=== PATIENT | male | born 1955 | race Caucasian/White ===

== ENCOUNTER 2023-06-26 14:08 | Outpatient (RCR) | payer OTHER, SELFPAY | END 2023-06-26 23:59 | disposition home or self-care (01) | LOC: RPT 14:08 | PROVIDERS: ATTENDING PHYSICIAN Physical Medicine & Rehabilitation; FAMILY PHYSICIAN Internal Medicine | DX: Z47.81 Encounter for orthopedic aftercare following surgical amputation (principal); Z89.511 Acquired absence of right leg below knee; R26.2 Difficulty in walking, not elsewhere classified; Z73.6 Limitation of activities due to disability | CPT/HCPCS: 97110; 97763 ==

== ENCOUNTER 2023-07-24 13:52 | Outpatient (RCR) | payer OTHER, SELFPAY | END 2023-07-24 23:59 | disposition home or self-care (01) | LOC: RPT 13:52 | PROVIDERS: ATTENDING PHYSICIAN Physical Medicine & Rehabilitation; FAMILY PHYSICIAN Internal Medicine | DX: Z47.81 Encounter for orthopedic aftercare following surgical amputation (principal); R26.2 Difficulty in walking, not elsewhere classified; Z74.09 Other reduced mobility; Z73.6 Limitation of activities due to disability; M62.81 Muscle weakness (generalized); Z89.512 Acquired absence of left leg below knee | CPT/HCPCS: 97110; 97763 ==

== ENCOUNTER → 2023-08-18 10:40 | Outpatient (REF) | payer OTHER, SELFPAY | LOC: RAD 10:40 | PROVIDERS: ATTENDING PHYSICIAN Surgery Vascular Surgery; FAMILY PHYSICIAN Internal Medicine | DX: I70.262 Atherosclerosis of native arteries of extremities with gangrene, left leg (principal) | CPT/HCPCS: 93922; 93925 ==

== ENCOUNTER 2023-08-25 13:43 | Outpatient (RCR) | payer OTHER, SELFPAY | END 2023-08-25 23:59 | disposition home or self-care (01) | LOC: RPT 13:43 | PROVIDERS: ATTENDING PHYSICIAN Physical Medicine & Rehabilitation; FAMILY PHYSICIAN Internal Medicine | DX: Z47.81 Encounter for orthopedic aftercare following surgical amputation (principal); R26.2 Difficulty in walking, not elsewhere classified; Z73.6 Limitation of activities due to disability; M62.81 Muscle weakness (generalized); Z89.512 Acquired absence of left leg below knee; Z89.431 Acquired absence of right foot | CPT/HCPCS: 97110; 97763 ==

== ENCOUNTER 2023-09-25 13:07 | Outpatient (RCR) | payer OTHER, SELFPAY | END 2023-09-25 23:59 | disposition home or self-care (01) | LOC: RPT 13:07 | PROVIDERS: ATTENDING PHYSICIAN Physical Medicine & Rehabilitation; FAMILY PHYSICIAN Internal Medicine | DX: Z47.81 Encounter for orthopedic aftercare following surgical amputation (principal); R26.2 Difficulty in walking, not elsewhere classified; Z73.6 Limitation of activities due to disability; Z74.09 Other reduced mobility; R26.89 Other abnormalities of gait and mobility; Z89.512 Acquired absence of left leg below knee; Z89.431 Acquired absence of right foot | CPT/HCPCS: 97110; 97763 ==

== ENCOUNTER → 2023-10-20 12:18 | Outpatient (REF) | payer OTHER, SELFPAY | LOC: RAD 12:18 | PROVIDERS: ATTENDING PHYSICIAN Internal Medicine | DX: R06.00 Dyspnea, unspecified (principal) | CPT/HCPCS: 71046 ==

== ENCOUNTER 2023-10-27 12:16 | Outpatient (RCR) | payer OTHER, SELFPAY | END 2023-10-27 23:59 | disposition home or self-care (01) | LOC: RPT 12:16 | PROVIDERS: ATTENDING PHYSICIAN Physical Medicine & Rehabilitation; FAMILY PHYSICIAN Internal Medicine | DX: Z47.81 Encounter for orthopedic aftercare following surgical amputation (principal); Z89.519 Acquired absence of unspecified leg below knee; R26.2 Difficulty in walking, not elsewhere classified; Z73.6 Limitation of activities due to disability | CPT/HCPCS: 97110; 97763 ==

== ENCOUNTER 2023-11-24 13:07 | Outpatient (RCR) | payer OTHER, SELFPAY | END 2023-11-24 23:59 | disposition home or self-care (01) | LOC: RPT 13:07 | PROVIDERS: ATTENDING PHYSICIAN Physical Medicine & Rehabilitation; FAMILY PHYSICIAN Internal Medicine | DX: R26.2 Difficulty in walking, not elsewhere classified (principal); Z89.519 Acquired absence of unspecified leg below knee; Z73.6 Limitation of activities due to disability | CPT/HCPCS: 97110; 97763 ==

== ENCOUNTER 2023-12-25 14:15 | Outpatient (RCR) | payer OTHER, SELFPAY | END 2023-12-25 23:59 | disposition home or self-care (01) | LOC: RPT 14:15 | PROVIDERS: ATTENDING PHYSICIAN Physical Medicine & Rehabilitation; FAMILY PHYSICIAN Internal Medicine | DX: R26.2 Difficulty in walking, not elsewhere classified (principal); Z89.519 Acquired absence of unspecified leg below knee; Z74.09 Other reduced mobility | CPT/HCPCS: 97763 ==

== ENCOUNTER 2024-01-19 13:18 | Outpatient (RCR) | payer OTHER, SELFPAY | END 2024-01-19 23:59 | disposition home or self-care (01) | LOC: RPT 13:18 | PROVIDERS: ATTENDING PHYSICIAN Physical Medicine & Rehabilitation; FAMILY PHYSICIAN Internal Medicine | DX: R26.2 Difficulty in walking, not elsewhere classified (principal); Z89.519 Acquired absence of unspecified leg below knee; Z74.09 Other reduced mobility | CPT/HCPCS: 97110; 97763 ==

== ENCOUNTER 2024-02-05 13:02 | Outpatient (RCR) | payer OTHER, SELFPAY | END 2024-02-05 23:59 | disposition home or self-care (01) | LOC: RPT 13:02 | PROVIDERS: ATTENDING PHYSICIAN Physical Medicine & Rehabilitation; FAMILY PHYSICIAN Internal Medicine | DX: Z47.81 Encounter for orthopedic aftercare following surgical amputation (principal); Z89.512 Acquired absence of left leg below knee; R26.2 Difficulty in walking, not elsewhere classified | CPT/HCPCS: 97763 ==

== ENCOUNTER 2024-03-11 13:44 | Outpatient (RCR) | payer OTHER, SELFPAY | END 2024-03-11 23:59 | disposition home or self-care (01) | LOC: RPT 13:44 | PROVIDERS: ATTENDING PHYSICIAN Physical Medicine & Rehabilitation; FAMILY PHYSICIAN Internal Medicine | DX: R26.2 Difficulty in walking, not elsewhere classified (principal); Z89.519 Acquired absence of unspecified leg below knee; Z74.09 Other reduced mobility | CPT/HCPCS: 97763 ==

== ENCOUNTER 2024-04-26 12:49 | Outpatient (RCR) | payer OTHER, SELFPAY | END 2024-04-26 23:59 | disposition home or self-care (01) | LOC: RPT 12:49 | PROVIDERS: ATTENDING PHYSICIAN Physical Medicine & Rehabilitation; FAMILY PHYSICIAN Internal Medicine | DX: Z47.81 Encounter for orthopedic aftercare following surgical amputation (principal); R26.2 Difficulty in walking, not elsewhere classified; Z73.6 Limitation of activities due to disability; M62.81 Muscle weakness (generalized); Z89.512 Acquired absence of left leg below knee; Z89.431 Acquired absence of right foot | CPT/HCPCS: 97763 ==

== ENCOUNTER 2024-05-10 09:59 | Outpatient (RCR) | payer OTHER, SELFPAY | END 2024-05-10 23:59 | disposition home or self-care (01) | LOC: RPT 09:59 | PROVIDERS: ATTENDING PHYSICIAN Physical Medicine & Rehabilitation; FAMILY PHYSICIAN Internal Medicine | DX: Z47.81 Encounter for orthopedic aftercare following surgical amputation (principal); R26.2 Difficulty in walking, not elsewhere classified; Z73.6 Limitation of activities due to disability; M62.81 Muscle weakness (generalized); Z89.512 Acquired absence of left leg below knee; Z89.431 Acquired absence of right foot | CPT/HCPCS: 97763 ==

== ENCOUNTER 2024-11-07 21:20 | Inpatient (IN) | payer OTHER, SELFPAY ==
[2024-11-07] VITALS (9 sets, daily range): BP systolic 141–192; BP diastolic 87–127; BMI 39.9
--- NOTE | 2024-11-07 18:41 | ED.GENMED ---
History of Present Illness
General
Chief Complaint: Breathing Problem
Source: patient
Exam Limitations: none
Time Seen by Provider: 11/07/24 18:24
Nursing documentation reviewed up to this point in time: agreed with
History of Present Illness
History of Present Illness:
68-year-old male presents with shortness of breath onset a year ago worsening recently after he fell and injured his lower extremities he has a known PE tells me his last INR was 6, no history of heart failure does state that his extremities have
been swollen and has bilateral amputations he is diabetic he states he maybe had a fever but he is uncertain his stumps feel swollen EMS his oxygen saturation was around 90 nursing here states room air he was 82% placed on 6 L does not use home
oxygen
Past History
Past History
ED Past Medical History: CAD, Hypercholesterolemia, IDDM, Other (Proteins C or S deficiency, DVT, PE) and Other (legally blind)
ED Past Surgical History: Other (bilateral amputations of feet)
Patient has exhibited threatening behavior?: No
Social History
Tobacco: Non-smoker
Review of Systems
Review of Systems
All Other Systems: Not applicable
Constitutional: Reports fatigue and chills
Respiratory: Reports trouble breathing
Cardiac: Denies chest pain
ABD/GI: Denies abdominal pain
Musculoskeletal: Reports no symptoms
Neurological: Reports weakness
Phy Exam
Physical Exam
Physical Exam:
Physical Exam
General: Ill-appearing male
Neck: JVD
Heart: Regular
Lungs: Crackles bilateral
Abdomen: Obese not tender
Neuro: alert and oriented. no focal neurological deficits
Skin: no rash
Psychiatric: well kept. interactive and cooperative
Extremities: Bilateral amputations edema is present at stump
Scores
Heart Failure Risk
Heart Failure Risk Score: Yes
History of Stroke or TIA: No
History of intubation for respiratory distress: No
Heart rate on ED arrival >/= 110: Yes
SaO2 <90% on arrival on room air: Yes
HR >/=110 during 3min walk test (or too ill to perform test): Yes
ECG has acute ischemic changes: No
Urea >/=12mmol/L (BUN 33.6mg/dL): No
Serum CO2>/=35mmol/L: No
Troponin I or T elevated to NV Level (0.4mg/dL): No
NT-proBNP >/=5,000ng/L (5,000pg/ml): Yes
HF Risk Score: 4
Admission Status: HIGH RISK 26.1% Consider SNF treatment or admission to hospital
Course
Orders/Labs/Results
Orders:
Orders
11/07/24 18:23
EKG [Electrocardiogram (*1)] Urgent
Reason for Study: Shortness of Breath
EKG- Treatment ONCE
11/07/24 18:28
Electrocardiogram (*1) Stat
Reason for Study: Other
Other Reason for Exam: pneumonia
Cardiac Monitoring- Treatment ONCE
EKG- Treatment ONCE
IV Insert/Care/Rem.- Treatment PRN
Arterial Blood Gas Urgent
%Oxygen/Room Air: 6
CR Chest Portable - 1 View Urgent
Comment:
Reason For Exam: sob
Reason Study Needs to be Portable: Unable to Transport
11/07/24 19:19
Complete Blood Count/With Diff Urgent
Comprehensive Metabolic Panel Urgent
NT-proBNP Urgent
Prothrombin Time Urgent
Troponin I Urgent
11/07/24 19:22
Furosemide [Lasix] 60 mg IV NOW STA
Abnormal Lab Results
11/07/24
19:19
MCHC 32.4 L g/dL
(33.0-37.0)
RDW 15.3 H %
(11.5-14.5)
MPV 11.7 H fL
(7.4-10.4)
Absolute Neuts (auto) 8.8 H 10^3/uL
(1.4-6.5)
Absolute Lymphs (auto) 1.1 L 10^3/uL
(1.2-3.4)
Absolute Monos (auto) 0.7 H 10^3/uL
(0.1-0.6)
Neutrophils % 82.1 H %
(42.2-75.2)
Lymphocytes % 10.2 L %
(20.5-51.1)
PT 67.9 H Sec
(11.4-14.6)
INR > 8.0 H*
Carbon Dioxide 32 H mmol/L
(22-30)
BUN 25 H mg/dl
(9-20)
Glucose 173 H mg/dl
(70-99)
Troponin I 0.073 H* ng/ml
11/07/24 19:19
11/07/24 19:19
Vital Signs
Initial and Last Documented VS:
Initial Vital Signs
BP
165/113
11/07/24 18:23
Last Documented Vital Signs
Temp Pulse Resp BP Pulse Ox
98.5 F 94 23 168/94 100
11/07/24 18:27 11/07/24 19:30 11/07/24 19:30 11/07/24 18:30 11/07/24 19:30
*Radiology
Radiology exam reviewed: preliminary read by ED provider
*Pulse Oximetry
Patient hypoxic: yes
Comment: 82
*Fire Observer Interpretation
Rate: normal
Interpretation: normal
Heart Rate: 78
Rhythm: sinus
*Critical Care Note
Total Time (30-74mins, 75-104mins- exclusive of procedures): 32
Update Note
Update Note:
8 PM chest x-ray noted looks like heart failure fits clinically, proBNP troponin noted, INR is elevated we will obviously hold his Coumadin I do not see an indication for urgent reversal at this time
Will require admission treated with supplemental oxygen and IV diuretic
ED Attending Note
-
Portions of this chart may have been created with voice recognition software.� Occasional wrong word or��sound alike� substitutions may have occurred due to the inherent limitations of voice recognition software.
Discharge Plan
Departure
Patient Disposition: Admit
Date of Disposition: 11/07/24
Time of Disposition: 20:13
Admit to: Telemetry
Presentation/result/management discussed w/ accepting MD/DO: Hospitalist
Patient with high blood pressure during this ER visit?: Yes
Condition: Fair
Discharge Problem:
Congestive heart failure (CHF)
Prescriptions:
No Action
atorvastatin 10 MG tablet
10 mg PO DAILY
aspirin 81 mg Tablet,Chewable
81 mg PO DAILY Qty: 0 0RF
warfarin 2 mg Tablet
2 mg PO MUST ENTER TIMES
Rx Instructions:
M/W/F/Sat/Sun
warfarin 3 mg Tablet
3 mg PO MUST ENTER TIMES
Rx Instructions:
Monday/
Triamcinolone Acetonide Cream 0.1%
1 applic topical QIDPRN PRN (Reason: psoriasis) Qty: 1 0RF
insulin aspart U-100 [Novolog FlexPen U-100 Insulin] 100 unit/mL (3 mL) Insulin Pen
26 unit SC AC
Rx Instructions:
with breakfast
insulin aspart U-100 [Novolog FlexPen U-100 Insulin] 100 unit/mL (3 mL) Insulin Pen
10 unit SC NOON
Rx Instructions:
with lunch
insulin aspart U-100 [Novolog FlexPen U-100 Insulin] 100 unit/mL (3 mL) Insulin Pen
26 unit SC AC
Rx Instructions:
with dinner
oxycodone 20 mg Tablet
20 mg PO Q6H PRN (Reason: moderate pain)
insulin glargine U-300 conc [Toujeo Max U-300 SoloStar] 300 unit/mL (3 mL) Insulin Pen
40 unit SC HS
warfarin [Jantoven] 3 mg Tablet
3 mg PO MoWeFr@1800 Qty: 60 0RF
warfarin [Jantoven] 2 mg Tablet
2 mg PO SuTuThSa@1800 Qty: 90 0RF
Referrals:
UNKNOWN - PT DOES,NOT KNOW [Family Provider]
Interventions
Interventions:
*Risk Screen - Suicide Last Done: 11/07/24 18:27
*Neglect/Abuse Screening Last Done: 11/07/24 18:27
*ED- Fall Risk Assessment Last Done: 11/07/24 18:27
ED- Cardiac Assessment Last Done: 11/07/24 18:27
ED- Pulmonary Assessment Last Done: 11/07/24 18:28
Discharge Date and Time
Print Language: PERUVIAN
[2024-11-07 19:32] LABS: % Basophils 0.3 % (0-2); % Eosinophils 0.7 % (0-6); % Immature Granulocytes 0.3 % (0-0.5); % Lymphocytes 10.2 % (20.5-51.1); % Monocytes 6.4 % (1.7-9.3); % Neutrophils 82.1 % (42.2-75.2); Absolute Eosinophils 0.1 10^3/uL (0-0.7); Absolute Lymphocytes 1.1 10^3/uL (1.2-3.4); Absolute Monocytes 0.7 10^3/uL (0.1-0.6); Absolute Neutrophils 8.8 10^3/uL (1.4-6.5); Hematocrit 42.3 % (39.0-52.0); Hemoglobin 13.7 g/dL (13.0-18.0); Mean Corp Hgb Conc. 32.4 g/dL (33.0-37.0); Mean Corpuscular Hgb 27.4 pg (27.0-31.0); Mean Corpuscular Volume 84.6 fL (80.0-94.0); Mean Platelet Volume 11.7 fL (7.4-10.4); Nucleated Red Blood Cells % 0 % (-); Platelet Count 133 10^3/uL (130-400); Red Cell Dist. Width 15.3 % (11.5-14.5); White Blood Cell Count 10.7 10^3/uL (4.8-10.8)
[2024-11-07] MEDS: LASIX 60 MG IV (19:32)
[2024-11-07 20:02] LABS: PT 67.9 Sec (11.4-14.6)
[2024-11-07 20:06] LABS: ALT (SGPT) 23 U/L (0-50); AST (SGOT) 23 U/L (17-59); Albumin 3.7 g/dl (3.5-5.0); Alkaline Phosphatase 78 U/L (38-126); Blood Urea Nitrogen 25 mg/dl (9-20); Calcium 9.2 mg/dl (8.4-10.2); Carbon Dioxide 32 mmol/L (22-30); Chloride 102 mmol/L (98-107); Estimated Creatinine Clearance 91 ml/min; Glucose 173 mg/dl (70-99); Potassium 4.5 mmol/L (3.5-5.1); Sodium 138 mmol/L (135-145); Total Bilirubin 1.2 mg/dl (0.2-1.3); Total Protein 6.6 g/dl (6.3-8.2); eGFR > 60.00
[2024-11-07 20:08] LABS: INR > 8.0; NT-proBNP 9260 pg/ml; Troponin I 0.073 ng/ml
--- NOTE | 2024-11-07 20:14 | HPS.HSE ---
Family Physician
-
Family Physician: NOT KNOW UNKNOWN - PT DOES
Chief Complaint
-
sob
b/l LE edema
History of Present Illness
68-year-old male with past medical history for coronary artery disease, hyperlipidemia, diabetes, protein C deficiency, DVT, PE presents with worsening shortness of breath for past two weeks. he was also noted to have b/l LE edema. he is also
complaining right sided abdominal pain for past two week. very poor appetite due to the abdominal pain. denied n,vomiting and diarrhea. Patient denied any headache, dizzy or syncope. Patient denied any fever, chills, cough, congestion. Patient
is complaining of chest discomfort and heaviness. Patient denied dysuria hematuria.
Upon arrival he was noted to hypoxic requiring 4 L of oxygen. Patient received a dose of Lasix in the ER. Admitted for further management
Patient not seeing cardiology as outpatient.
Medical History
Past Medical History
Past Medical History: Reports Other
Additional Past Medical History:
Type 2 diabetes
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
Neuropathy
Psoriasis
DVT PE
Right lower extremities gangrenous
Past Surgical History: Reports Other
Additional Past Surgical History:
Left hip replacement
right eye removal
cardiac stent
right lower extremities angiogram with stent of right SFA and popliteal and peroneal artery
Toe amputation
Left BKA
Social History
Tobacco: Non-smoker
Alcohol: None
Drug: None
Personal:
Living: With Family
Family History
Family History: Not pertinent
Allergies / Home Medications
Allergies reflects when Allergies were last updated in [email or web address].
Home Medications with original date entered in [email or web address]
Allergy/Medication List:
Allergies
Allergy/AdvReac Type Severity Reaction Status Date / Time
pregabalin (From Lyrica) Allergy Unknown Verified 11/07/24 18:25
Home Medications
atorvastatin 10 mg tablet 10 mg PO DAILY High cholesterol 05/23/19
aspirin 81 mg chewable tablet 81 mg PO DAILY #0 tabs 07/14/22
Triamcinolone Acetonide Cream 0.1% 1 applic topical QIDPRN PRN psoriasis #1 container 12/07/22
insulin aspart U-100 100 unit/mL (3 mL) subcutaneous pen (Novolog FlexPen U-100 Insulin aspart) 10 unit SC NOON 03/01/23
insulin aspart U-100 100 unit/mL (3 mL) subcutaneous pen (Novolog FlexPen U-100 Insulin aspart) 26 unit SC AC 03/01/23
insulin aspart U-100 100 unit/mL (3 mL) subcutaneous pen (Novolog FlexPen U-100 Insulin aspart) 26 unit SC AC 03/01/23
insulin glargine U-300 conc 300 unit/mL (3 mL) subcutaneous pen (Toujeo Max U-300 SoloStar) 40 unit SC HS 03/01/23
oxycodone 20 mg tablet 20 mg PO Q6H PRN moderate pain 03/01/23
warfarin 2 mg tablet (Jantoven) 2 mg PO SuTuThSa@1800 #90 tabs 03/13/23
warfarin 3 mg tablet (Jantoven) 3 mg PO MoWeFr@1800 #60 tabs 03/13/23
warfarin 2 mg tablet 2 mg PO MUST ENTER TIMES 11/07/24
warfarin 3 mg tablet 3 mg PO MUST ENTER TIMES 11/07/24
Review of Systems
-
Constitutional: Reports No Symptoms
EENT: Reports No Symptoms
Respiratory: Reports Trouble Breathing
Cardiac: Reports Chest Pain
Abdomen/GI: Reports Abdominal Pain
: Reports No Symptoms
Musculoskeletal: Reports Edema (Bilateral lower extremity)
Skin: Reports No Symptoms
Neurological: Reports No Symptoms
Endocrine: Reports No Symptoms
Hematologic/Lymphatic: Reports No Symptoms
Psych: Reports No Symptoms
Physical Exam
Vital Signs
Vital Signs
Temp Pulse Resp BP Pulse Ox
98.5 F 94 23 168/94 100
11/07/24 18:27 11/07/24 19:30 11/07/24 19:30 11/07/24 18:30 11/07/24 19:30
Physical Exam
General: Well Developed, Well Nourished and No Apparent Distress
HEENT: NormoCephalic, Moist mucous membranes and Atraumatic
Respiratory: Decreased Breath Sounds
Cardiac: S1/S2 and Regular Rhythm; No Murmur or Rub
GI: Soft, Non Tender, Non Distended and Normal Bowel Sounds; No Organomegaly
Rectal: Deferred by Provider
Musculoskeletal: No Clubbing, No Cyanosis and Other (Bilateral lower extremity)
Skin: No Rash
Neuro: Nonfocal/grossly intact
Laboratory Results
-
11/07/24 19:19
11/07/24 19:19
Laboratory Results
PT 67.9 Sec (11.4-14.6) H 11/07/24 19:19
INR > 8.0 H* 11/07/24 19:19
Total Bilirubin 1.2 mg/dl (0.2-1.3) 11/07/24 19:19
AST 23 U/L (17-59) 11/07/24 19:19
ALT 23 U/L (0-50) 11/07/24 19:19
Alkaline Phosphatase 78 U/L (38-126) 11/07/24 19:19
Troponin I 0.073 ng/ml H* 11/07/24 19:19
Data Reviewed
-
Lab Data: Labs Reviewed by me
Impression/Plan
-
# Acute hypoxic respiratory failure secondary to new onset CHF
- Diuretics continued
- Strict HUNG, daily weight, fluid restriction
- Cardiology consult
- BNP 9260
- Chest x-ray pending
- Echo 12/28/2022 with a EF of 61%
- Obtain echocardiogram
-Continue supplemental oxygen to keep sat greater than 95
-Wean as tolerated-
- Cardiology consulted
#right sided abdominal pain unclear cause
-will obtain Ct abdomen pelvis
-ctm
# Supratherapeutic INR on Coumadin
# History of DVT/PE
- INR greater than 8.0
- Hold Coumadin
#chest pain/ Elevated Trope rule out NSTEMI
- Trope 0.073
- EKG was sinus rhythm with PACs
- Trend Trope
# History of�gangrene left foot s/p Left below the knee amputation
# osteomyelitis of digits 4 and 5 and calcaneus of the left foot
#History left TMA 06/2022,�
# Hx Right partial foot amputation/MRSA foot/dry gangrene at the medial aspect of the TMA�
# PVD/ Left distal SFA, mid SFA, proximal SFA stents x3, left peroneal artery/TP trunk angioplasty July 04, 2022
#DM 2
- Sliding scale
- CHO diet
- Obtain A1c
-trojeo 25units continued
#HX DVT/PE, protein C/S deficiency
#Hx clots to bilat eyes/ blindness
#CAD/cardiac stents 2014
# Accelerated essential hypertension
- Blood pressure elevated in ER
- Lasix continued
-hydralazine added
#Blind right eye/left
#Psoriasis
#Obesity
#Dvt Prophylaxis-contraindicated
# CODE STATUS full code-
[2024-11-07] MEDS: NITROSTAT (SUBLINGUAL) 0.4 MG SL (21:07)
--- NOTE | 2024-11-07 21:17 | W.PN.UPDATE ---
Update Note
Progress Note Update
This is an addendum to H&P written by Annalisa Dougherty on 11/07/2024. �Patient seen and examined independently with PATIENT FLOW COORDINATOR.
68-year-old male with past medical history of protein C&S deficiency, DVT/PE, blindness, CAD status post stents, hypertension, hyperlipidemia, peripheral arterial disease, osteomyelitis status post left TMA, gangrene of the foot status post
below-knee amputation, type 2 diabetes, diabetic neuropathy, chronic anemia, obesity, constipation, anxiety, insomnia, blindness of right eye, psoriasis, presenting with increased lower extremity edema of stump, hypoxemia to 82% requiring 6 L per
EMS.
INR of 6 today.
Complaining of lower abdominal pain worse in the right lower quadrant over the past week worse with eating.
Blood pressure 190s. �Currently on 4 L oxygen.
Cardiac BNP of 9200. �0.073. �EKG shows sinus rhythm with PACs. �INR greater than 8.
Chest x-ray shows pulmonary edema. �Report pending.
Patient with acute CHF exacerbation with hypertensive emergency. �Lasix. �Echocardiogram. �Trend troponins. �As needed hydralazine. �Cardiology.
Patient with supratherapeutic INR greater than 8. �Will give 1 mg vitamin K. �Recheck INR in the a.m.
Unclear etiology of abdominal pain. �Does not seem to be acute abdomen. �Check CT abdomen pelvis to evaluate abdominal pain. �Could be related to gastritis.
[2024-11-07 21:19] LABS: Urine Albumin 4+ (Neg - Trace); Urine Bilirubin Negative (Negative); Urine Character Clear (Clear); Urine Color Yellow; Urine Glucose Negative (Negative); Urine Ketone Negative (Negative); Urine Leukocyte Negative (Negative); Urine Nitrite Negative (Negative); Urine Occult Blood 1+ (Negative); Urine Specific Gravity 1.025 (<1.030); Urine Urobilinogen 1+ (Neg - 1+)
[2024-11-07 21:26] LABS: Urine Mucus Few
[2024-11-07 21:28] LABS: Urine Bacteria Many (Negative)
[2024-11-07] MEDS: AQUAMEPHYTON 50.5 MG IV (21:35)
[2024-11-07 21:44] LABS: B.E. 3.1 mmol/L; HCO3 31.5 mmol/L (21-28); O2 Saturation % 98.9 % (94-98); PCO2 64 mmHg (35-48); PO2 118 mmHg (83-108)
[2024-11-07 22:58] LABS: Glucose - Point of Care 156 mg/dl (70-99)
[2024-11-07] MEDS: LANTUS 0.2 UNITS SC (22:59)
[2024-11-08] VITALS (13 sets, daily range): BP systolic 109–148; BP diastolic 65–119; BMI 38.2
[2024-11-08 01:19] LABS: Troponin I 0.071 ng/ml
--- NOTE | 2024-11-08 02:27 | PTCARENOTE ---
received pt from ED at 22:15. Pt aaox3, able to make needs known. Blind in both eyes, oriented to surroundings and call read buttons. NSR with PACs on monitor. Monitor alarming afib, EKG done to confirm NSR. 4LNC SaO2 98% POLANCO orthopneic, lungs
diminished B/L. L BKA and R foot amputation. Psoriasis rash over entire body, masd to groin. R midline intact with good blood return. VSS. Call read and belongings within reach.
--- NOTE | 2024-11-08 04:53 | PTCARENOTE ---
Pt feels the need to urinate but unable to do so. Bladder scan showed 750ml in bladder. Straight cathed for 750ml clear yellow urine.
[2024-11-08 05:00] LABS: INR 3.31; PT 33.9 Sec (11.4-14.6)
[2024-11-08 05:08] LABS: Blood Urea Nitrogen 26 mg/dl (9-20); Carbon Dioxide 33 mmol/L (22-30); Chloride 102 mmol/L (98-107); Estimated Creatinine Clearance 81 ml/min; Glucose 160 mg/dl (70-99); HDL Cholesterol 35 mg/dl; LDL Cholesterol, Calculated 44 mg/dl; Magnesium 1.7 mg/dl (1.6-2.3); Potassium 4.2 mmol/L (3.5-5.1); Sodium 140 mmol/L (135-145); Total Cholesterol 97 mg/dl (50-199); Triglyceride 90 mg/dl (10-149); Very Low Density Lipoprotein 18 mg/dl (0-30); eGFR > 60.00
[2024-11-08 05:26] LABS: Troponin I 0.069 ng/ml
[2024-11-08 05:38] LABS: TSH Reflex To Free T4 2.74 uIU/ml (0.47-4.68)
--- NOTE | 2024-11-08 07:39 | CON.CAR ---
Addendum entered and electronically signed by Tomasz Keating MD 11/08/24 11:33:
I saw and examined the patient.
The JUNIOR ACCOUNT MANAGER or PA's note was reviewed and I agree with the note.
Comment: General: Well developed, well nourished in NAD.
Neck: Supple, no JVD, HJR, carotids +2 B/L, no bruits bilaterally.
Heart: Non displaced PMI, RRR, no murmurs, No S3, S4, no rubs.
Lungs: Scattered rhonchi
Abdomen: Normal bowel sounds, soft, non-tender, non-distended.
Extremities: Left BKA, right AKA
Neuro: Grossly nonfocal, awake, alert and oriented x3.
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
He presented with 6 months of worsening shortness of breath. He is admitted with acute CHF. Of note ECG reveals inferior T wave inversion and indeterminate troponin of 0.073.
Will treat his CHF with IV Lasix. Will check echocardiogram. Will consider ischemic evaluation given abnormal ECG and elevated troponin and echo results. Will hold Coumadin. INR is 3.3. Start IV heparin with plans for cardiac catheterization
when INR is less than 2.
Original Note:
Consultation
Consultation Request
Date/Time Consultation Performed: 11/08/24
Requesting Provider: Dr. Ventura
Performing Provider: Gianna De Jesus PA-C for Dr. Keating
Reason for Consultation: CHF
Medical History
-
Chief Complaint: SOB
History of Present Illness:
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
significant PVD with prior bilateral amputations who presents to [facility] with complaints of worsening shortness of breath over the last 6 months. He reports yesterday it became so bad that 'I felt like I was going to '. He ambulates using
prosthetics and assistive device. He reports with ambulation over the last several weeks he has noticed worsening dyspnea on exertion as well as chest discomfort. He also noted lower extremity edema of his stumps and symptoms of orthopnea. He has
not been followed by a russian language professor regularly. He is not chronically on a water pill. On arrival proBNP 9200. He was noted to be hypoxic, improved on supplemental oxygen. Was also noted to have supratherapeutic INR. Cardiology consulted for
evaluation of CHF, HTN, CP.
PMH:
-CAD s/p BMS to RCA 03/2013 at [place]
-PVD
s/p LLE stenting per patient 2013
LLE gangrene s/p L BKA
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
Left distal SFA, mid SFA, proximal SFA stents x3, left peroneal artery/TP trunk angioplasty 06/2022
-history of clotting disorder, pt believes protein C&S deficiency, on chronic OAC with coumadin
-h/o DVT/PE secondary to hypercoagulable state
-legally blind, secondary to hypercoagulable state, s/p R eye removal 1985
-chronic SOB, secondary to history of L collapsed lung secondary PE and hypercoagulable state
-obesity
-HLD
-DM2
-diabetic neuropathy
-psoriasis
-L hip replacement 1985
Past Medical History
Past Medical History: Other (in HPI)
Social History
Tobacco: Non-Smoker
Alcohol: None
Personal:
Living: With Family
Family History
Family History: Reviewed & Not Pertinent
Allergies / Home Medications
Allergy/AdvReac Type Severity Reaction Status Date / Time
pregabalin (From Lyrica) Allergy Unknown Verified 11/07/24 18:25
�Medication �Instructions �Recorded �Confirmed �Type
atorvastatin 10 mg tablet 10 mg PO DAILY High cholesterol 05/23/19 11/07/24 History
aspirin 81 mg chewable tablet 81 mg PO DAILY #0 tabs 07/14/22 11/07/24 Rx
insulin glargine U-300 conc 300 40 unit SC HS 03/01/23 11/07/24 History
unit/mL (3 mL) subcutaneous pen
(Toujeo Max U-300 SoloStar)
insulin aspart U-100 100 unit/mL 1 sliding scale dose SC DIRECTED 11/07/24 11/07/24 History
subcutaneous solution (Novolog
U-100 Insulin aspart)
warfarin 2 mg tablet 2 mg PO MUST ENTER TIMES 11/07/24 11/07/24 History
warfarin 3 mg tablet 3 mg PO MUST ENTER TIMES 11/07/24 11/07/24 History
Review of Systems
-
History Source: Patient
All other systems: Negative unless noted
Physical Exam
Vital Signs
Temp Pulse Resp BP Pulse Ox
97.5 F 89 21 118/82 98
11/08/24 03:54 11/08/24 07:29 11/08/24 07:29 11/08/24 07:29 11/08/24 07:29
Lab Results
11/07/24 19:19
11/08/24 04:11
Troponin I 0.069 ng/ml H* 11/08/24 04:11
Bbb-B-Eijqtnjsiip Pept 9260 pg/ml 11/07/24 19:19
Physical Exam
General: No Apparent Distress, Comfortable and Other (obese. on supp O2)
HEENT: Normocephalic, Anicteric (L eye) and Moist Mucous Membranes
Respiratory: Crackles and Other ('belly breathing')
Cardiac: S1/S2 and Regular Rhythm
GI: Soft, Non Tender, Non Distended and Normal Bowel Sounds
Musculoskeletal: No Clubbing, No Cyanosis and Edema (2+ of B/L stumps)
Skin: Warm and Dry
Neuro: Awake, Alert and Oriented (to self, place)
Impression / Plan
-
Primary Overhead Line Worker: none
Assessment:
-Presentation with SOB
-Acute hypoxic respiratory failure
-Acute on chronic CHF, unknown type
-Hypertensive urgency
-Supratherapeutic INR
-Abnormal EKG with elevated troponin
-CAD s/p BMS to RCA 03/2013 at [place]
-PVD
s/p LLE stenting per patient 2013
LLE gangrene s/p L BKA
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
Left distal SFA, mid SFA, proximal SFA stents x3, left peroneal artery/TP trunk angioplasty 06/2022
-history of clotting disorder, pt believes protein C&S deficiency, on chronic OAC with coumadin
-h/o DVT/PE secondary to hypercoagulable state
-legally blind, secondary to hypercoagulable state, s/p R eye removal 1985
-chronic SOB, secondary to history of L collapsed lung secondary PE and hypercoagulable state
-obesity
-HLD
-DM2
-diabetic neuropathy
-psoriasis
-L hip replacement 1985
ECHO 07/13/22: Technically difficult study, Definity used, EF 61%, no gross segmental wall motion abnormalities, mild concentric LVH, no significant valvular pathology within the limits of study
Plan:
- Patient presents with shortness of breath and acute hypoxia. proBNP elevated and chest x-ray with small left pleural effusion and mild CHF, new diagnosis. He has not followed with cardiology as an outpatient.
- He remains with labored breathing this morning on supplemental oxygen. Continue to uptitrate as needed
- Continue IV Lasix, dose increased to 40 mg twice daily. Creatinine stable at 1.2. Was not on diuretic prior to admission
- wean supp O2 as able
- CHF education as able
- Check echo with Definity, last from 06/2022 as above
- in SR with PVCs and PACs on review of tele overnight. Will add Coreg 3.125 mg twice daily as BPs also elevated on arrival.
- he also reports some chest tightness with exertion, relieved by rest. concern for angina. EKG abnormal with inferior, anterior, and lateral ST abnormalities. trops elevated but flat 0.06-0.07 range. suspect will need ischemic evaluation prior to DC
- consider initiation of IV heparin
- continue asa
- LDL 44. continue statin
- PT/OT
- will need ongoing OP cardiac care moving forward
Data Reviewed
-
EKG: Tracing Personally Visualized and interpreted
Radiology: Report Reviewed by me
Medical Tests (Nuc Med, Echo etc): Report Reviewed by me
Labs: Labs Reviewed by me
Old Records: Reviewed
[2024-11-08 08:52] LABS: Glucose - Point of Care 139 mg/dl (70-99)
[2024-11-08] MEDS: NOVOLOG FLEXPEN-LOW RESISTANCE SC ×3 (08:53→17:09)
[2024-11-08] MEDS: DUONEB 3 ML INH ×3 (09:05→17:41)
[2024-11-08] MEDS: DESENEX/MITRAZOL/ZEASORB 1 APPLIC TOPICAL ×2 (09:06→20:41)
[2024-11-08] MEDS: LOW STRENGTH ASPIRIN 81 MG PO (09:07)
[2024-11-08] MEDS: LIPITOR 10 MG PO (09:07)
[2024-11-08] MEDS: LASIX 40 MG IV ×2 (09:16→15:57)
[2024-11-08 09:22] LABS: Glycohemoglobin (HgbA1c) 5.6 % (4.0-5.6)
--- NOTE | 2024-11-08 11:15 | PTCARENOTE ---
Assumed care of patient this morning. He is aaox3. He is blind in his left eye, he does not have a right eye. Reports he can see some shadows. Pt with labored breathing this morning. was at the bedside and ordered breathing treatment. Pt
reports it helped a little. SPO2 remains stable, O2 decreased to 2L NC. Pt with poor appetite, refused breakfast. He is continent of b/b, able to use urinal but spills it. Pt did was incontinent of bowel but reports he has urgency. Pt's skin is red
in multiple areas, states it is his psoriasis. CHG performed. Assessment, care and VS as charted.
[2024-11-08] MEDS: COREG 3.125 MG PO ×2 (11:22→20:40)
--- NOTE | 2024-11-08 11:26 | CM ---
Addendum entered by OZZY Jefferson 11/08/24 13:07:
Lesley at [facility] has accepted patient for admit MondayNovember 10. CM to call [phone] to get to Nursing solar installation crew supervisor on Monday.
Report 4th floor [phone]
fax [phone]
NO auth needed with Medicare.
Addendum entered by OZZY Jefferson 11/08/24 11:37:
Spoke to Ryan at [facility]. will fax clinical, face sheet with insurance information to look into coverage with insurer for hospital bed.
Original Note:
Attempted to awaken patient twice. CM spoke to on phone. She reports they live in 2 level home with one step in. She has portable ramps to use on step to enter. He has half bath on first floor. Recently he was using commode and urinal at
bedside. His hospital bed is broken so he is sleeping in lift chair. He has rolling walker and wheelchair. assists with sponge bathing and washing hair in kitchen sink. In May 2024 he finished outpatient PT at . He was able to use
rolling walker around first floor of home. He was having trouble earlier in 2024 with his prosthesis fitting correctly.
PCP Jyothi Winchester,
PHarmacy: [facility]
In past patient has had [facility] services.
would like CM to help get new hospital bed. Other DME from [facility].
Consult for advanced directive discussed with . THey want to learn about what they need for advanced directive. Packet left in room with CM business card attached. Awaiting PT eval today.
PLAN: Home with home care services.
--- NOTE | 2024-11-08 12:23 | W.PN.HOSP.TC ---
Today's Communication/Plan
-
continue Lasix.
IR consult for thoracentesis
Assessment / Plan
Assessment / Plan
Impression:
68-year-old male with past medical history of protein C&S deficiency, DVT/PE, blindness, CAD status post stents, hypertension, hyperlipidemia, peripheral arterial disease, osteomyelitis status post left TMA, gangrene of the foot status post
below-knee amputation, type 2 diabetes, diabetic neuropathy, chronic anemia, obesity, constipation, anxiety, insomnia, blindness of right eye, psoriasis, presenting with increased lower extremity edema of stump, hypoxemia to 82% requiring 6 L per
EMS.
Assessment/plan:
Acute hypoxic respiratory failure secondary to CHF-CT abdomen pelvis with concern of pneumonia
Continue oxygen.
Added DuoNebs.
Wean as tolerated
Acute CHF Exacerbation:
Patient has acute on chronic diastolic congestive heart failure (updated echo pending)
Patient presented with shortness of breath.
BNP level is elevated at 9260
Troponin level is 0.073
Continue IV diuresing in form of Lasix 40 mg twice daily
Daily weight.
Strict I's and O's.
Consulted cardiology.
Most recent echo 07/13/2022 shows :
Very technically difficult study. Definity contrast used.
Normal left ventricular chamber size. Normal left ventricular systolic
function. Left ventricular ejection fraction is 61% by Hightower's method. No
gross segmental wall motion abnormalities. Mild concentric left ventricular
hypertrophy. Normal diastolic function.
Grossly normal right ventricular size and function.
No significant valvular pathology within limits of the study.
Repeat echo pending.
Cardiology recommending ischemic workup and possible cardiac cath once INR less than 2.
Right-sided pleural effusion.
Seen on CT abdomen pelvis.
Will ask IR for thoracentesis (still with elevated INR)
Concern of pneumonia
Seen on CT abdomen/pelvis
Should repeat x-ray after thoracentesis.
Watch off antibiotic.
No leukocytosis of fever
Right sided abdominal pain
CT abdomen pelvis showed:
No significant acute process in the abdomen or pelvis.
Diverticulosis coli. Cholelithiasis.
Trace left and moderate right pleural effusions with associated atelectasis and/or pneumonia.
Supratherapeutic INR on Coumadin
History of DVT/PE
- INR greater than 8.0
- Hold Coumadin
Chest pain/ Elevated Trope /NSTEMI- CAD/cardiac stents 2014
- Trope 0.073 (trending down)
- EKG was sinus rhythm with PACs
- Trend Trope
Recommending cardiac cath once INR less than 2
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
Hx Right partial foot amputation
PT/OT consult
History of diabetes mellitus
Continue home medication
Insulin sliding scale
Diabetic diet
Hemoglobin A1c 5.6
-trojeo 25units continued
HX DVT/PE, protein C/S deficiency
Coumadin on hold
Accelerated essential hypertension
- Blood pressure acceptable
CODE STATUS: Full code
DVT prophylaxis: INR still elevated
Diet: DM diet
Disposition: continue Lasix.
Total time spent on today's encounter was 65 minutes which included time spent in counseling the patient/family regarding diagnosis and treatment plan as listed above, goals of care, and symptom management. Case was discussed with nursing staff,
specialists, and care coordinators/case management. All labs and imaging personally reviewed by me. Remainder the time spent in detailed review of previous records, lab data, imaging, and other medical provider documentation.
Anticipated Discharge: > 48 hours
Subjective/Interval History
-
Date of Service: November 08, 2024
Patient seen and examined at bedside, patient still very tachypneic and short of breath, ordered breathing treatment.
Objective Data
-
Labs:
Laboratory Results
11/08/24
04:11
PT 33.9 H
INR 3.31 D
Sodium 140
Potassium 4.2
Chloride 102
Carbon Dioxide 33 H
BUN 26 H
Creatinine 1.2
Glucose 160 H
Calcium 9.0
Vital Signs:
Vital Signs
Temp Pulse Resp BP Pulse Ox
97.8 F 90 22 137/72 98
11/08/24 11:28 11/08/24 11:22 11/08/24 10:00 11/08/24 11:22 11/08/24 10:50
I&O
11/07/24 11/08/24 11/09/24
06:59 06:59 06:59
Output Total 1650 / 1650 150 / 150
Balance -1650 / -1650 -150 / -150
Physical Exam
-
General: Respiratory Distress, Appears in Distress, Appears Chronically Ill and Obese
HEENT: Normocephalic, Atraumatic, Moist Mucous Membranes, No Ptosis, PERRLA and Nose Appears Normal
Respiratory: Wheezes, Rales, Rhonchi and Accessory Resp Muscle Use; Negative Clear to Percussion (Diminished breath sound bilateraly)
Cardiac: Regular Rhythm and S1/S2
Breast: Deferred by me
GI: Soft, Nontender, Nondistended and Normal Bowel Sounds
Genito-urinary: No Costovertebral Tender
Musculoskeletal: No Clubbing, No Cyanosis and Other (Left BKA, right foot amputation-bilateral extremity edema.)
Skin: Warm
Neuro: Awake, Alert, Oriented, AO x 3 and No Motor Deficits
Psych: Calm
Data Reviewed
-
Diagnostic Radiology: Image personally visualized and interpreted and Report Reviewed by me
CT Scan: Image personally visualized and interpreted and Report Reviewed by me
Ultrasound: Image personally visualized and interpreted and Report Reviewed by me
MRI: Image personally visualized and interpreted and Report Reviewed by me
Medical Tests (Nuc Med, Echo etc): Image personally visualized and interpreted and Report Reviewed by me
Labs: Labs Reviewed by me
Old Records: Reviewed
[2024-11-08 12:31] LABS: Glucose - Point of Care 130 mg/dl (70-99)
--- NOTE | 2024-11-08 13:14 | W.PN.UPDATE ---
Update Note
Progress Note Update
Due to left BKA, right foot amputation, congestive heart failure, patient is in need of a semi-electric hospital bed with foam mattress due to the need to elevate head of bed above 30 degrees to prevent aspiration
and to facilitate frequent repositioning to prevent bed ulcers and pressure points.
--- NOTE | 2024-11-08 13:35 | CM ---
Spoke to on phone as CM was unable to awaken patient. Patient admitted from home where he lives with in 2 level home. He has first floor set up with half bath. uses portable ramps to get up one step into home. He sleeps in lift chair
as his hospital bed is broken. He sponge bathes. washes hair and helps him wash in kitchen sink. He was able to walk to kitchen with his walker but has become weaker. He had L BKA and his prosthesis for awhile. He was getting out patient PT at
in May 2024.
He is admitted with CHF.
PCP Bairon Winchester
Pharmacy: [facility]
Advanced directive information provided to by leaving in room..
Sent referral for hospital bed to [facility], including documentation for bed by Dr. Ventura along with order signed by Dr. Ventura.
Patient refused PT today. CM to watch for d/c needs.
Patient has been to [facility] in past.
PLAN: snf or home with home care.
[2024-11-08 17:06] LABS: Glucose - Point of Care 113 mg/dl (70-99)
[2024-11-08 21:44] LABS: Glucose - Point of Care 165 mg/dl (70-99)
[2024-11-08] MEDS: LANTUS 0.2 UNITS SC (21:53)
--- NOTE | 2024-11-08 22:13 | PTCARENOTE ---
Pt received resting in bed at change of shift. at bedside. Pt drowsy but arousable. 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 Only left eye opens. AAOx3. Denies pain or discomfort. Whole body with placque psoriasis. Pt
denies pain or itch. Left leg stump warm to touch and red but without discomfort. Both left stump and right lower leg elevated on air pillows. SR/PAC/PVC on CM rate 80's. Afebrile. Rest of VSS. POX on 2L 98-100%. Using urinal to void yellow urine.
Rest of assessment as documented. Maintained on Q2hr turns. Oral care provided. Call read remains within reach. Will continue to monitor.
[2024-11-09] VITALS (12 sets, daily range): BP systolic 128–152; BP diastolic 77–129; BMI 38.5
[2024-11-09] MEDS: DUONEB 3 ML INH ×4 (01:25→18:08)
[2024-11-09 03:50] LABS: Hematocrit 40.6 % (39.0-52.0); Hemoglobin 12.7 g/dL (13.0-18.0); Mean Corp Hgb Conc. 31.3 g/dL (33.0-37.0); Mean Corpuscular Volume 86.4 fL (80.0-94.0); Mean Platelet Volume 11.9 fL (7.4-10.4); Platelet Count 110 10^3/uL (130-400); Red Cell Dist. Width 14.9 % (11.5-14.5); White Blood Cell Count 9.9 10^3/uL (4.8-10.8)
[2024-11-09 03:54] LABS: PT 19.3 Sec (11.4-14.6)
[2024-11-09 04:11] LABS: Blood Urea Nitrogen 32 mg/dl (9-20); Calcium 8.8 mg/dl (8.4-10.2); Carbon Dioxide 33 mmol/L (22-30); Chloride 103 mmol/L (98-107); Estimated Creatinine Clearance 82 ml/min; Glucose 163 mg/dl (70-99); Sodium 140 mmol/L (135-145); eGFR > 60.00
[2024-11-09 07:48] LABS: Glucose - Point of Care 140 mg/dl (70-99)
[2024-11-09] MEDS: LIPITOR 10 MG PO (08:27)
[2024-11-09] MEDS: COREG 3.125 MG PO ×2 (08:27→19:43)
[2024-11-09] MEDS: LOW STRENGTH ASPIRIN 81 MG PO (08:27)
[2024-11-09] MEDS: LASIX 40 MG IV ×2 (08:27→16:16)
[2024-11-09] MEDS: DESENEX/MITRAZOL/ZEASORB 1 APPLIC TOPICAL ×2 (08:28→19:43)
[2024-11-09] MEDS: NOVOLOG FLEXPEN-LOW RESISTANCE SC ×3 (08:29→16:34)
[2024-11-09 11:43] LABS: Glucose - Point of Care 126 mg/dl (70-99)
--- NOTE | 2024-11-09 12:12 | W.PN.CARDCBS ---
Today's Communication / Plan
-
Continue IV diuresis with monitoring of renal function and electrolytes
Will need ischemic evaluation in the setting of acute on chronic heart failure, prior PCI, new cardiomyopathy
IV heparin with INR less than 2
Impression / Plan
-
Primary [employer]: none; initial consult Dr Tomasz Keating
Assessment:
-Presentation with SOB
-Acute hypoxic respiratory failure
-Acute on chronic CHF, unknown type
-Hypertensive urgency
-Supratherapeutic INR
-Abnormal EKG with elevated troponin
-CAD s/p BMS to RCA 03/2013 at [place]
-PVD
s/p LLE stenting per patient 2013
LLE gangrene s/p L BKA
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
Left distal SFA, mid SFA, proximal SFA stents x3, left peroneal artery/TP trunk angioplasty 06/2022
-history of clotting disorder, pt believes protein C&S deficiency, on chronic OAC with coumadin
-h/o DVT/PE secondary to hypercoagulable state
-legally blind, secondary to hypercoagulable state, s/p R eye removal 1985
-chronic SOB, secondary to history of L collapsed lung secondary PE and hypercoagulable state
-obesity
-HLD
-DM2
-diabetic neuropathy
-psoriasis
-L hip replacement 1985
ECHO 07/13/2022: Technically difficult study, Definity used, EF 61%, no gross segmental wall motion abnormalities, mild concentric LVH, no significant valvular pathology within the limits of study
ECHO 11/08/2024: Moderately reduced systolic function, global hypokinesis, EF 30-35%, G3 DD, normal RV size and function, mild mean gradient 11 mmHg, trace TR PASP 24 mmHg
Plan:
- Patient presents with shortness of breath and acute hypoxia. proBNP elevated and chest x-ray with small left pleural effusion and mild CHF, new diagnosis. He has not followed with cardiology as an outpatient.
- He remains with labored breathing this morning on supplemental oxygen. Continue to uptitrate as needed
- Continue IV Lasix, dose increased to 40 mg twice daily. Creatinine stable at 1.2. Was not on diuretic prior to admission
- wean supp O2 as able
- CHF education as able
- in SR with PVCs and PACs on review of tele overnight. Tolerating Coreg 3.125 mg twice daily as BPs also elevated on arrival.
- he also reports some chest tightness with exertion, relieved by rest. concern for angina. EKG abnormal with inferior, anterior, and lateral ST abnormalities. trops elevated but flat 0.06-0.07 range. Plan for ischemic evaluation 11/11/2024
- Start heparin with INR less than 2
- continue asa
- LDL 44. continue statin
- PT/OT
- will need ongoing OP cardiac care moving forward
Progress Note - [employer]
Subjective
Date of Service: November 09, 2024
Patient seen and examined this morning. No acute events overnight. Patient on nasal cannula reporting mild shortness of breath but improved. Denies chest pain, palpitations, or weakness.
Objective
Labs:
11/09/24 03:11
11/09/24 03:11
Labs
Hgb 12.7 g/dL (13.0-18.0) L 11/09/24 03:11
Hct 40.6 % (39.0-52.0) 11/09/24 03:11
Plt Count 110 10^3/uL (130-400) L 11/09/24 03:11
PT 19.3 Sec (11.4-14.6) H 11/09/24 03:11
INR 1.60 11/09/24 03:11
Sodium 140 mmol/L (135-145) 11/09/24 03:11
Potassium 4.0 mmol/L (3.5-5.1) 11/09/24 03:11
BUN 32 mg/dl (9-20) H 11/09/24 03:11
Creatinine 1.2 mg/dL (0.7-1.3) 11/09/24 03:11
Glucose 163 mg/dl (70-99) H 11/09/24 03:11
Troponins
11/07/24 11/08/24 11/08/24
19:19 00:33 04:11
Troponin I 0.073 H* 0.071 H* 0.069 H*
Vital Signs and I&O:
Vital Signs
Temp Pulse Resp BP Pulse Ox
98.1 F 93 20 152/89 97
11/09/24 11:02 11/09/24 08:27 11/09/24 07:46 11/09/24 08:27 11/09/24 10:20
Vital Signs
Temp Pulse Resp BP Pulse Ox
98.1 F 93 20 152/89 97
11/09/24 11:02 11/09/24 08:27 11/09/24 07:46 11/09/24 08:27 11/09/24 10:20
Intake & Output
11/07/24 11/08/24 11/09/24 11/10/24
06:59 06:59 06:59 06:59
Intake Total 480 / 480
Output Total 1650 / 1650 1075 / 1075
Balance -1650 / -1650 -595 / -595
Physical Exam
Physical Exam
GENERAL: no acute distress, on nasal cannula
EYE: sclera anicteric
NECK: Supple, no JVD, no carotid bruit appreciated
ENT: normal nose, moist mucosal membranes
CARDIAC: Regular rate and rhythm, +S1/S2, no murmur, rubs, or gallops
CHEST/PULMONARY: Normal effort, scattered rhonchi, faint
ABDOMEN: Soft, without focal tenderness or distention
NEUROLOGICAL: Alert and oriented x3
SKIN: Warm and dry, no rash
PSYCH: Normal and appropriate interaction.
Extremities: Left BKA, right AKA with trace edema
[2024-11-09 13:00] LABS: Hematocrit 41.7 % (39.0-52.0); Hemoglobin 13.1 g/dL (13.0-18.0); Mean Corp Hgb Conc. 31.4 g/dL (33.0-37.0); Mean Corpuscular Hgb 27.1 pg (27.0-31.0); Mean Corpuscular Volume 86.2 fL (80.0-94.0); Mean Platelet Volume 11.8 fL (7.4-10.4); Platelet Count 113 10^3/uL (130-400); Red Blood Cell Count 4.84 10^6/uL (4.70-6.10); Red Cell Dist. Width 14.8 % (11.5-14.5)
[2024-11-09 13:02] LABS: APTT 34.2 Sec (23.4-35.0)
[2024-11-09] MEDS: HEPARIN 25000 UNITS/250 ML IV (13:33)
--- NOTE | 2024-11-09 13:38 | W.PN.HOSP.TC ---
Today's Communication/Plan
-
continue Lasix.
Heparin drip started
Assessment / Plan
Assessment / Plan
Impression:
68-year-old male with past medical history of protein C&S deficiency, DVT/PE, blindness, CAD status post stents, hypertension, hyperlipidemia, peripheral arterial disease, osteomyelitis status post left TMA, gangrene of the foot status post
below-knee amputation, type 2 diabetes, diabetic neuropathy, chronic anemia, obesity, constipation, anxiety, insomnia, blindness of right eye, psoriasis, presenting with increased lower extremity edema of stump, hypoxemia to 82% requiring 6 L per
EMS.
Acute requirement improved.
Continued on IV Lasix 40 mg twice daily.
Echocardiogram done shows EF 30-35%
full report:
1. Left ventricle: Normal size with moderately reduced systolic function. The
ventricle is globally hypokinetic with an estimated ejection fraction of 30-35%
by Hightower's method of discs. There is stage III diastolic dysfunction
consistent with restrictive filling and increased filling pressures
2. Right ventricle: Normal
3. Atria: Mild left atrial dilation
4. Mitral valve: Trace mitral regurgitation
5. Aortic valve: Thickened and trileaflet aortic valve. Mild aortic stenosis
with a mean gradient of 11 mmHg. There is no aortic insufficiency
6. Tricuspid valve: Trace tricuspid regurgitation with estimated pulmonary
artery systolic pressures of 24 mmHg
7. When compared to his most recent echocardiogram from 07/13/2022, the LVEF is
now estimated at 30-35%. The LVEF on the prior study was 61%
Will need ischemic
Assessment/plan:
Acute hypoxic respiratory failure secondary to CHF-CT abdomen pelvis with concern of pneumonia
Continue oxygen.
Added DuoNebs.
Wean as tolerated
Acute CHF Exacerbation:
Patient has acute on chronic systolic congestive heart failure
Patient presented with shortness of breath.
BNP level is elevated at 9260
Troponin level is 0.073
Continue IV diuresing in form of Lasix 40 mg twice daily
Daily weight.
Strict I's and O's.
Consulted cardiology.
Echo shows :
1. Left ventricle: Normal size with moderately reduced systolic function. The
ventricle is globally hypokinetic with an estimated ejection fraction of 30-35%
by Hightower's method of discs. There is stage III diastolic dysfunction
consistent with restrictive filling and increased filling pressures
2. Right ventricle: Normal
3. Atria: Mild left atrial dilation
4. Mitral valve: Trace mitral regurgitation
5. Aortic valve: Thickened and trileaflet aortic valve. Mild aortic stenosis
with a mean gradient of 11 mmHg. There is no aortic insufficiency
6. Tricuspid valve: Trace tricuspid regurgitation with estimated pulmonary
artery systolic pressures of 24 mmHg
7. When compared to his most recent echocardiogram from 07/13/2022, the LVEF is
now estimated at 30-35%. The LVEF on the prior study was 61%
Cardiology recommending ischemic workup and possible cardiac cath once INR less than 2.
Right-sided pleural effusion.
Seen on CT abdomen pelvis.
IR for thoracentesis pending, possible Monday
Concern of pneumonia
Seen on CT abdomen/pelvis
Should repeat x-ray after thoracentesis.
Watch off antibiotic.
No leukocytosis of fever
Right sided abdominal pain
CT abdomen pelvis showed:
No significant acute process in the abdomen or pelvis.
Diverticulosis coli. Cholelithiasis.
Trace left and moderate right pleural effusions with associated atelectasis and/or pneumonia.
Supratherapeutic INR on Coumadin
History of DVT/PE
- INR initially greater than 8.0
- Coumadin on hold.
Continue heparin drip
Chest pain/ Elevated Trope /NSTEMI- CAD/cardiac stents 2014
- Trope 0.073 (trending down)
- EKG was sinus rhythm with PACs
Cardiology recommend cardiac cath .
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
Hx Right partial foot amputation
PT/OT consult
History of diabetes mellitus
Continue home medication
Insulin sliding scale
Diabetic diet
Hemoglobin A1c 5.6
-trojeo 25units continued
HX DVT/PE, protein C/S deficiency
Coumadin on hold-heparin drip
Accelerated essential hypertension
- Blood pressure acceptable
CODE STATUS: Full code
DVT prophylaxis: heparin drip
Diet: DM diet
Disposition: continue Lasix.
Total time spent on today's encounter was 65 minutes which included time spent in counseling the patient/family regarding diagnosis and treatment plan as listed above, goals of care, and symptom management. Case was discussed with nursing staff,
specialists, and care coordinators/case management. All labs and imaging personally reviewed by me. Remainder the time spent in detailed review of previous records, lab data, imaging, and other medical provider documentation.
Anticipated Discharge: > 48 hours
Subjective/Interval History
-
Date of Service: November 09, 2024
Patient seen and examined at bedside, denies any chest pain , shortness of breath slightly Improved, no abdominal pain, no nausea, no vomiting, no diarrhea or constipation.
lower extremity edema slightly improved.
Objective Data
-
Labs:
Laboratory Results
11/09/24 11/09/24
03:11 12:41
WBC 9.9 10.0
Hgb 12.7 L 13.1
Hct 40.6 41.7
Plt Count 110 L 113 L
PT 19.3 H
INR 1.60
APTT 34.2
Sodium 140
Potassium 4.0
Chloride 103
Carbon Dioxide 33 H
BUN 32 H
Creatinine 1.2
Glucose 163 H
Calcium 8.8
Vital Signs:
Vital Signs
Temp Pulse Resp BP Pulse Ox
98.1 F 93 20 152/89 97
11/09/24 11:02 11/09/24 08:27 11/09/24 07:46 11/09/24 08:27 11/09/24 10:20
I&O
11/08/24 11/09/24 11/10/24
06:59 06:59 06:59
Intake Total 480 / 480
Output Total 1650 / 1650 1075 / 1075
Balance -1650 / -1650 -595 / -595
Physical Exam
-
General: Respiratory Distress, Appears in Distress, Appears Chronically Ill and Obese
HEENT: Normocephalic, Atraumatic, Moist Mucous Membranes, No Ptosis, PERRLA and Nose Appears Normal
Respiratory: Wheezes, Rales, Rhonchi and Accessory Resp Muscle Use; Negative Clear to Percussion (Diminished breath sound bilateraly)
Cardiac: Regular Rhythm and S1/S2
Breast: Deferred by me
GI: Soft, Nontender, Nondistended and Normal Bowel Sounds
Genito-urinary: No Costovertebral Tender
Musculoskeletal: No Clubbing, No Cyanosis and Other (Left BKA, right foot amputation-bilateral extremity edema.)
Skin: Warm
Neuro: Awake, Alert, Oriented, AO x 3 and No Motor Deficits
Psych: Calm
Data Reviewed
-
Diagnostic Radiology: Image personally visualized and interpreted and Report Reviewed by me
CT Scan: Image personally visualized and interpreted and Report Reviewed by me
Ultrasound: Image personally visualized and interpreted and Report Reviewed by me
MRI: Image personally visualized and interpreted and Report Reviewed by me
Medical Tests (Nuc Med, Echo etc): Image personally visualized and interpreted and Report Reviewed by me
Labs: Labs Reviewed by me
Old Records: Reviewed
[2024-11-09 16:21] LABS: Glucose - Point of Care 133 mg/dl (70-99)
[2024-11-09 19:55] LABS: APTT 77.8 Sec (23.4-35.0)
--- NOTE | 2024-11-09 20:01 | PTCARENOTE ---
Pt received at beginning of shift resting in bed. Drowsy. Declined scheduled Coreg. After discussion with pt and pt agreeable to take Coreg. Continues on Heparin gtt at 10ml/hr. Scheduled PTT obtained and resulted 77.8. No change to Heparin
infusion at this time. Next PTT scheduled for 0200. Pt denies pain or discomfort. VSS. Afebrile. SR/PAC/PVC on CM with occ ST. Rest of assessment as documented. Maintained on Q2hr turns. Call read remains within reach. Will continue to monitor.
[2024-11-09 21:59] LABS: Glucose - Point of Care 140 mg/dl (70-99)
[2024-11-09] MEDS: LANTUS 0.2 UNITS SC (22:12)
[2024-11-10] VITALS (17 sets, daily range): BP systolic 127–159; BP diastolic 66–108
[2024-11-10 02:28] LABS: Hematocrit 40.1 % (39.0-52.0); Hemoglobin 12.7 g/dL (13.0-18.0); Mean Corp Hgb Conc. 31.7 g/dL (33.0-37.0); Mean Corpuscular Hgb 27.1 pg (27.0-31.0); Mean Corpuscular Volume 85.5 fL (80.0-94.0); Mean Platelet Volume 11.6 fL (7.4-10.4); Platelet Count 102 10^3/uL (130-400); Red Blood Cell Count 4.69 10^6/uL (4.70-6.10); Red Cell Dist. Width 14.6 % (11.5-14.5); White Blood Cell Count 9.8 10^3/uL (4.8-10.8)
[2024-11-10 02:35] LABS: INR 1.48; PT 18.2 Sec (11.4-14.6)
[2024-11-10 02:37] LABS: APTT 68.7 Sec (23.4-35.0)
[2024-11-10 02:48] LABS: Blood Urea Nitrogen 32 mg/dl (9-20); Calcium 8.7 mg/dl (8.4-10.2); Carbon Dioxide 36 mmol/L (22-30); Chloride 99 mmol/L (98-107); Estimated Creatinine Clearance 82 ml/min; Glucose 144 mg/dl (70-99); Potassium 3.7 mmol/L (3.5-5.1); Sodium 140 mmol/L (135-145); eGFR > 60.00
[2024-11-10 07:47] LABS: Glucose - Point of Care 102 mg/dl (70-99)
[2024-11-10] MEDS: DUONEB 3 ML INH ×3 (07:56→19:20)
[2024-11-10] MEDS: LIPITOR 10 MG PO (08:01)
[2024-11-10] MEDS: LOW STRENGTH ASPIRIN 81 MG PO (08:01)
[2024-11-10] MEDS: LASIX 40 MG IV ×2 (08:02→16:36)
[2024-11-10] MEDS: COREG PO (08:02)
[2024-11-10] MEDS: DESENEX/MITRAZOL/ZEASORB 1 APPLIC TOPICAL ×2 (08:02→20:53)
[2024-11-10] MEDS: NOVOLOG FLEXPEN-LOW RESISTANCE SC ×3 (08:03→17:38)
[2024-11-10] MEDS: COREG 3.125 MG PO ×2 (09:19→20:53)
--- NOTE | 2024-11-10 09:38 | W.PN.CARDCBS ---
Today's Communication / Plan
-
Continue diuresis with IV Lasix
Heparin GTT while off Coumadin
N.p.o. after midnight, left heart catheterization tentatively tomorrow
Impression / Plan
-
Primary [employer]: none; initial consult Dr Tomasz Keating
Assessment:
-Presentation with SOB
-Acute hypoxic respiratory failure
-Acute on chronic CHF, unknown type
-Hypertensive urgency, improved
-Supratherapeutic INR, off coumadin currently on heparin
-Abnormal EKG with elevated troponin
-CAD s/p BMS to RCA 03/2013 at [place]
-PVD
s/p LLE stenting per patient 2013
LLE gangrene s/p L BKA
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
Left distal SFA, mid SFA, proximal SFA stents x3, left peroneal artery/TP trunk angioplasty 06/2022
-history of clotting disorder, pt believes protein C&S deficiency, on chronic OAC with coumadin
-h/o DVT/PE secondary to hypercoagulable state
-legally blind, secondary to hypercoagulable state, s/p R eye removal 1985
-chronic SOB, secondary to history of L collapsed lung secondary PE and hypercoagulable state
-obesity
-HLD
-DM2
-diabetic neuropathy
-psoriasis
-L hip replacement 1985
ECHO 07/13/2022: Technically difficult study, Definity used, EF 61%, no gross segmental wall motion abnormalities, mild concentric LVH, no significant valvular pathology within the limits of study
ECHO 11/08/2024: Moderately reduced systolic function, global hypokinesis, EF 30-35%, G3 DD, normal RV size and function, mild mean gradient 11 mmHg, trace TR PASP 24 mmHg
Plan:
- Patient presents with shortness of breath and acute hypoxia. proBNP elevated and chest x-ray with small left pleural effusion and mild CHF, new diagnosis. He has not followed with cardiology as an outpatient.
- He remains with labored breathing this morning on supplemental oxygen. Continue to uptitrate as needed
- Continue IV Lasix, dose increased to 40 mg twice daily. Creatinine stable at 1.2. Was not on diuretic prior to admission
- wean supp O2 as able
- CHF education as able
- in SR with PVCs and PACs on review of tele overnight. Tolerating Coreg 3.125 mg twice daily as BPs also elevated on arrival.
- he also reports some chest tightness with exertion, relieved by rest. concern for angina. EKG abnormal with inferior, anterior, and lateral ST abnormalities. trops elevated but flat 0.06-0.07 range. Plan for ischemic evaluation 11/11/2024
- Continue heparin with INR less than 2
- continue asa
- LDL 44. continue statin
- PT/OT
- will need ongoing OP cardiac care moving forward
Discussed with nursing, hospitalist, patient's
Progress Note - [employer]
Subjective
Date of Service: November 10, 2024
Patient seen and examined this morning. No acute events overnight. Patient reporting continued SOB and edema. Notes fatigue. Denies CP, palpitations, or weakness.
Objective
Labs:
11/10/24 02:05
11/10/24 02:05
Labs
Hgb 12.7 g/dL (13.0-18.0) L 11/10/24 02:05
Hct 40.1 % (39.0-52.0) 11/10/24 02:05
Plt Count 102 10^3/uL (130-400) L 11/10/24 02:05
PT Cancelled 11/10/24 02:05
INR Cancelled 11/10/24 02:05
APTT 68.7 Sec (23.4-35.0) H 11/10/24 02:03
Sodium 140 mmol/L (135-145) 11/10/24 02:05
Potassium 3.7 mmol/L (3.5-5.1) 11/10/24 02:05
BUN 32 mg/dl (9-20) H 11/10/24 02:05
Creatinine 1.2 mg/dL (0.7-1.3) 11/10/24 02:05
Glucose 144 mg/dl (70-99) H 11/10/24 02:05
Troponins
11/07/24 11/08/24 11/08/24
19:19 00:33 04:11
Troponin I 0.073 H* 0.071 H* 0.069 H*
Vital Signs and I&O:
Vital Signs
Temp Pulse Resp BP Pulse Ox
98.1 F 87 24 147/98 98
11/10/24 07:23 11/10/24 09:19 11/10/24 07:58 11/10/24 09:19 11/10/24 07:58
Vital Signs
Temp Pulse Resp BP Pulse Ox
98.1 F 87 24 147/98 98
11/10/24 07:23 11/10/24 09:19 11/10/24 07:58 11/10/24 09:19 11/10/24 07:58
Intake & Output
11/08/24 11/09/24 11/10/24 11/11/24
06:59 06:59 06:59 06:59
Intake Total 480 / 480 880 / 880
Output Total 1650 / 1650 1075 / 1075 1135 / 1135
Balance -1650 / -1650 -595 / -595 -255 / -255
Physical Exam
Physical Exam
GENERAL: no acute distress, on nasal cannula
EYE: sclera anicteric
NECK: Supple, no JVD, no carotid bruit appreciated
ENT: normal nose, moist mucosal membranes
CARDIAC: Regular rate and rhythm, +S1/S2, no murmur, rubs, or gallops
CHEST/PULMONARY: Normal effort, scattered rhonchi, faint
ABDOMEN: Soft, without focal tenderness or distention
NEUROLOGICAL: Alert and oriented x3
SKIN: Warm and dry, no rash
PSYCH: Normal and appropriate interaction.
Extremities: Left BKA, right AKA with trace edema
[2024-11-10 10:06] LABS: APTT 88.7 Sec (23.4-35.0)
--- NOTE | 2024-11-10 12:14 | W.PN.HOSP.TC ---
Today's Communication/Plan
-
continue Lasix.
Possible thoracentesis Monday
Need ischemic workup
Assessment / Plan
Assessment / Plan
Impression:
68-year-old male with past medical history of protein C&S deficiency, DVT/PE, blindness, CAD status post stents, hypertension, hyperlipidemia, peripheral arterial disease, osteomyelitis status post left TMA, gangrene of the foot status post
below-knee amputation, type 2 diabetes, diabetic neuropathy, chronic anemia, obesity, constipation, anxiety, insomnia, blindness of right eye, psoriasis, presenting with increased lower extremity edema of stump, hypoxemia to 82% requiring 6 L per
EMS.
Acute requirement improved.
Continued on IV Lasix 40 mg twice daily.
Echocardiogram done shows EF 30-35%
full report:
1. Left ventricle: Normal size with moderately reduced systolic function. The
ventricle is globally hypokinetic with an estimated ejection fraction of 30-35%
by Hightower's method of discs. There is stage III diastolic dysfunction
consistent with restrictive filling and increased filling pressures
2. Right ventricle: Normal
3. Atria: Mild left atrial dilation
4. Mitral valve: Trace mitral regurgitation
5. Aortic valve: Thickened and trileaflet aortic valve. Mild aortic stenosis
with a mean gradient of 11 mmHg. There is no aortic insufficiency
6. Tricuspid valve: Trace tricuspid regurgitation with estimated pulmonary
artery systolic pressures of 24 mmHg
7. When compared to his most recent echocardiogram from 07/13/2022, the LVEF is
now estimated at 30-35%. The LVEF on the prior study was 61%
Will need ischemic work up
For thoracentesis on Monday
Assessment/plan:
Acute hypoxic respiratory failure secondary to CHF-CT abdomen pelvis with concern of pneumonia
Continue oxygen.
Added DuoNebs.
Wean as tolerated
Acute CHF Exacerbation:
Patient has acute on chronic systolic congestive heart failure
Patient presented with shortness of breath.
BNP level is elevated at 9260
Troponin level is 0.073
Continue IV diuresing in form of Lasix 40 mg twice daily
Daily weight.
Strict I's and O's.
Consulted cardiology.
Echo shows :
1. Left ventricle: Normal size with moderately reduced systolic function. The
ventricle is globally hypokinetic with an estimated ejection fraction of 30-35%
by Hightower's method of discs. There is stage III diastolic dysfunction
consistent with restrictive filling and increased filling pressures
2. Right ventricle: Normal
3. Atria: Mild left atrial dilation
4. Mitral valve: Trace mitral regurgitation
5. Aortic valve: Thickened and trileaflet aortic valve. Mild aortic stenosis
with a mean gradient of 11 mmHg. There is no aortic insufficiency
6. Tricuspid valve: Trace tricuspid regurgitation with estimated pulmonary
artery systolic pressures of 24 mmHg
7. When compared to his most recent echocardiogram from 07/13/2022, the LVEF is
now estimated at 30-35%. The LVEF on the prior study was 61%
Cardiology recommending ischemic workup and possible cardiac cath once INR less than 2.
Right-sided pleural effusion.
Seen on CT abdomen pelvis.
IR for thoracentesis pending, possible Monday
Concern of pneumonia
Seen on CT abdomen/pelvis
Should repeat x-ray after thoracentesis.
Watch off antibiotic.
No leukocytosis of fever
Right sided abdominal pain
CT abdomen pelvis showed:
No significant acute process in the abdomen or pelvis.
Diverticulosis coli. Cholelithiasis.
Trace left and moderate right pleural effusions with associated atelectasis and/or pneumonia.
Supratherapeutic INR on Coumadin
History of DVT/PE
- INR initially greater than 8.0
- Coumadin on hold.
Continue heparin drip
Chest pain/ Elevated Trope /NSTEMI- CAD/cardiac stents 2014
- Trope 0.073 (trending down)
- EKG was sinus rhythm with PACs
Cardiology recommend cardiac cath .
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
Hx Right partial foot amputation
PT/OT consult
History of diabetes mellitus
Continue home medication
Insulin sliding scale
Diabetic diet
Hemoglobin A1c 5.6
-trojeo 25units continued
HX DVT/PE, protein C/S deficiency
Coumadin on hold-heparin drip
Accelerated essential hypertension
- Blood pressure acceptable
CODE STATUS: Full code
DVT prophylaxis: heparin drip
Diet: DM diet
Disposition: continue Lasix.
Possible thoracentesis Monday
Need ischemic workup
Total time spent on today's encounter was 65 minutes which included time spent in counseling the patient/family regarding diagnosis and treatment plan as listed above, goals of care, and symptom management. Case was discussed with nursing staff,
specialists, and care coordinators/case management. All labs and imaging personally reviewed by me. Remainder the time spent in detailed review of previous records, lab data, imaging, and other medical provider documentation.
Anticipated Discharge: > 48 hours
Subjective/Interval History
-
Date of Service: November 10, 2024
Patient seen and examined at bedside, denies any chest pain , still with shortness of breath but overall improved.
Objective Data
-
Labs:
Laboratory Results
11/10/24 11/10/24 11/10/24
02:03 02:05 09:29
WBC 9.8
Hgb 12.7 L
Hct 40.1
Plt Count 102 L
PT 18.2 H Cancelled
INR 1.48 Cancelled
APTT 68.7 H 88.7 H
Sodium 140
Potassium 3.7
Chloride 99
Carbon Dioxide 36 H
BUN 32 H
Creatinine 1.2
Glucose 144 H
Calcium 8.7
11/10/24
17:00
WBC
Hgb
Hct
Plt Count
PT
INR
APTT Pending
Sodium
Potassium
Chloride
Carbon Dioxide
BUN
Creatinine
Glucose
Calcium
Vital Signs:
Vital Signs
Temp Pulse Resp BP Pulse Ox
98.1 F 87 24 147/98 98
11/10/24 07:23 11/10/24 09:19 11/10/24 07:58 11/10/24 09:19 11/10/24 07:58
I&O
11/09/24 11/10/24 11/11/24
06:59 06:59 06:59
Intake Total 480 / 480 880 / 880
Output Total 1075 / 1075 1135 / 1135
Balance -595 / -595 -255 / -255
Physical Exam
-
General: Respiratory Distress, Appears in Distress, Appears Chronically Ill and Obese
HEENT: Normocephalic, Atraumatic, Moist Mucous Membranes and Nose Appears Normal
Respiratory: Wheezes, Rales, Rhonchi and Accessory Resp Muscle Use; Negative Clear to Percussion (Diminished breath sound bilateraly)
Cardiac: Regular Rhythm and S1/S2
Breast: Deferred by me
GI: Soft, Nontender, Nondistended and Normal Bowel Sounds
Genito-urinary: No Costovertebral Tender
Musculoskeletal: No Clubbing, No Cyanosis and Other (Left BKA, right foot amputation-bilateral extremity edema.)
Skin: Warm
Neuro: Awake, Alert, Oriented, AO x 3 and No Motor Deficits
Psych: Calm
Data Reviewed
-
Diagnostic Radiology: Image personally visualized and interpreted and Report Reviewed by me
CT Scan: Image personally visualized and interpreted and Report Reviewed by me
Ultrasound: Image personally visualized and interpreted and Report Reviewed by me
MRI: Image personally visualized and interpreted and Report Reviewed by me
Medical Tests (Nuc Med, Echo etc): Image personally visualized and interpreted and Report Reviewed by me
Labs: Labs Reviewed by me
Old Records: Reviewed
[2024-11-10 12:24] LABS: Glucose - Point of Care 132 mg/dl (70-99)
[2024-11-10] MEDS: NITROSTAT (SUBLINGUAL) 0.4 MG SL ×2 (13:15→13:21)
[2024-11-10 14:57] LABS: Troponin I 0.066 ng/ml
--- NOTE | 2024-11-10 15:41 | PTCARENOTE ---
Notified by PT that Pt was reporting Chest pain - s/w with Pt and stated that he was experiencing 5/10 mid-sternal pain/pressure; Pain not radiating; Not in any obvious distresss; Denies SOB; B/P = 137/97; Hr ~ 80's; NSR with PAC's & PVC's;
Nitrostat given as per JUL; Hospitalist and [employer] Consultant notified. No relief after 5 min and second Nitro given; B/P = 125/92; EKG obtained and Troponin drawn - no changes noted.; Mild relief reported by Pt - 3/10 chest pain/pressure. Possible
pleural or intercostal pain - will continue to monitor and assess.
[2024-11-10 17:17] LABS: APTT 98.5 Sec (23.4-35.0)
[2024-11-10 17:52] LABS: Glucose - Point of Care 107 mg/dl (70-99)
[2024-11-10 21:25] LABS: Glucose - Point of Care 130 mg/dl (70-99)
[2024-11-10] MEDS: LANTUS 0.2 UNITS SC (21:27)
--- NOTE | 2024-11-10 22:00 | PTCARENOTE ---
Caring for patient overnight. aaox3, drowsy. NSR, remains 2LNC. No assessment changed. Bedrest, q2t. Urinal. Will continue to monitor.
[2024-11-11] VITALS (37 sets, daily range): BP systolic 83–159; BP diastolic 61–133; PULSE 2–79; BMI 38.5
[2024-11-11 06:15] LABS: INR 1.42; PT 17.6 Sec (11.4-14.6)
[2024-11-11 06:19] LABS: Hematocrit 41.1 % (39.0-52.0); Hemoglobin 12.8 g/dL (13.0-18.0); Mean Corp Hgb Conc. 31.1 g/dL (33.0-37.0); Mean Corpuscular Hgb 27.2 pg (27.0-31.0); Mean Corpuscular Volume 87.3 fL (80.0-94.0); Mean Platelet Volume 11.5 fL (7.4-10.4); Platelet Count 103 10^3/uL (130-400); Red Blood Cell Count 4.71 10^6/uL (4.70-6.10); Red Cell Dist. Width 14.6 % (11.5-14.5); White Blood Cell Count 8.6 10^3/uL (4.8-10.8)
[2024-11-11 07:16] LABS: APTT 137.6 Sec (23.4-35.0)
[2024-11-11] MEDS: DUONEB 3 ML INH ×2 (07:57→19:26)
[2024-11-11 08:14] LABS: Glucose - Point of Care 91 mg/dl (70-99)
[2024-11-11] MEDS: NOVOLOG FLEXPEN-LOW RESISTANCE SC ×3 (08:20→16:18)
--- NOTE | 2024-11-11 08:49 | PTCARENOTE ---
Patient received from metal roaster. Patient resting comfortably in bed. AAO, VSS. No events noted overnight. No complaints of pain. Heparin gtt on hold, PTT was 137.6, for 1hr and restart minus 200 units. Patient to go to track repair laborer today and IR
for thoracentesis. On NPO. Call read in reach.
[2024-11-11] MEDS: COREG 3.125 MG PO ×2 (09:06→20:43)
[2024-11-11] MEDS: LOW STRENGTH ASPIRIN 81 MG PO (09:06)
[2024-11-11] MEDS: LIPITOR 10 MG PO (09:06)
[2024-11-11] MEDS: DESENEX/MITRAZOL/ZEASORB 1 APPLIC TOPICAL ×2 (09:08→20:44)
[2024-11-11 09:17] LABS: LDH 251 U/L (120-246); Total Protein 6.1 g/dl (6.3-8.2)
--- NOTE | 2024-11-11 09:48 | W.PN.HOSP.TC ---
Today's Communication/Plan
-
s/p thoracentesis
await cath results
Pulm consult for hypercapnia
Assessment / Plan
Assessment / Plan
Assessment:
Acute hypoxic and hypercapnic respiratory failure due to acute CHF
- wean O2 as able
- on BiPAP
- prn nebs
- pulm evaluation
Acute on chronic HFrEF
- continue IV Lasix - requires intensive monitoring of I/Os, weights, lytes
- Echo: EF now 35% from 60%
- GDMT: Coreg
- LHC planned today
- Cards following
acute R pleural effusion from acute CHF
- s/p thoracentesis 11/11; 800 cc removed.
non-ischemic myocardial injury in setting of acute CHF
CAD s/p stents 2014
- C planned today
Right sided abdominal pain
- CT abdomen pelvis showed: No significant acute process in the abdomen or pelvis. Diverticulosis coli. Cholelithiasis.
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
Supratherapeutic INR
- resume Coumadin when ok from Cards perspective
- IV heparin - requires intensive monitoring of PTTs
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
Hx Right partial foot amputation
- PT/OT consult
History of diabetes mellitus
- Continue home medication
- Insulin sliding scale
- Diabetic diet
- Hemoglobin A1c 5.6
- Toujeo 25units continued
Accelerated essential hypertension
- Blood pressure acceptable
DVT ppx: Heparin drip
Code: Full
Total Critical Care Time 51 minutes. I was immediately available to the patient and staff. I personally examined, reviewed labs, diagnostic images/reports, interpretations, treatment plans, discussed patient care with other providers and family
or caregivers (if patient is unable to make decisions), entered orders as appropriate and documented the medical record.
Anticipated Discharge: > 48 hours
Subjective/Interval History
-
Date of Service: November 11, 2024
reports sob at rest
for Cath + thoracentesis today
Objective Data
-
Labs:
Laboratory Results
11/11/24
05:42
WBC 8.6
Hgb 12.8 L
Hct 41.1
Plt Count 103 L
PT 17.6 H
INR 1.42
APTT 137.6 H
Sodium Pending
Potassium Pending
Chloride Pending
Carbon Dioxide Pending
BUN Pending
Creatinine Pending
Glucose Pending
Calcium Pending
Vital Signs:
Vital Signs
Temp Pulse Resp BP Pulse Ox
98.3 F 78 18 151/92 97
11/11/24 07:57 11/11/24 09:06 11/11/24 07:59 11/11/24 09:06 11/11/24 07:59
I&O
11/10/24 11/11/24 11/12/24
06:59 06:59 06:59
Intake Total 880 / 880 360 / 360
Output Total 1135 / 1135 750 / 750
Balance -255 / -255 -390 / -390
Physical Exam
-
General: Respiratory Distress (mild)
HEENT: Normocephalic and Atraumatic
Respiratory: Negative Wheezes
Cardiac: Regular Rhythm and S1/S2
GI: Soft
Musculoskeletal: Edema, Right Lower Extrem and Edema, Left Lower Extrem
Neuro: AO x 3
Psych: Calm
Data Reviewed
-
Total Time Spent with Patient (in minutes): 51
Labs: Labs Reviewed by me
[2024-11-11 09:53] LABS: Blood Urea Nitrogen 32 mg/dl (9-20); Estimated Creatinine Clearance 75 ml/min; Glucose 106 mg/dl (70-99); Sodium 141 mmol/L (135-145)
[2024-11-11 09:54] LABS: Carbon Dioxide 37 mmol/L (22-30); Chloride 98 mmol/L (98-107)
--- NOTE | 2024-11-11 10:06 | ITS.CL.CATH ---
Packaging Operator - Catheterization
Cardiac Catheterization
Procedure Report:
LEFT HEART CATHETERIZATION
Date of Procedure: November 11, 2024
Referring: Jacques Smith D.O.
PROCEDURES:
1. Left heart catheterization, coronary angiogram.
2. Moderate sedation.
INDICATION: New cardiomyopathy, severely depressed LVEF
ACCESS: Right radial artery, 6Fr. sheath, under US guidance. Given significant right radial artery calcification and atherosclerotic plaque, we could only advance the sheath a few millimeters and therefore struggled with adequate length for
diagnostic catheters feeling with multiple left diagnostic catheters.
2. Right common femoral artery, 5 Somali sheath, under ultrasound guidance using a micropuncture kit.
HEMODYNAMICS : (mmHg)
AO (s/d) : 136/73
LVEDP : 32
No significant gradient across the aortic valve to suggest aortic stenosis.
CORONARY FINDINGS: The left coronary artery was eventually engaged using a 5 Somali JL 4 diagnostic catheter via right common femoral artery.
Dominance: Right
Left Main Trunk (LMT): Medium to large caliber vessel that gives rise to the LAD and LCx branches and is free of angiographic disease. Left main has diffuse 50% stenosis. There is significant pressure dampening of about 30 to 40 mmHg upon
selective engagement with a 5 Somali diagnostic JL 4 catheter and significant ventricularization.
Left Anterior Descending Artery (LAD): The left anterior descending artery is a medium caliber vessel which gives rise to 3 major small to medium caliber diagonal branches as it courses to the anterior interventricular groove and wraps around the
apex. Mid LAD has diffuse up to 70 to 80% stenosis spanning across the takeoff of 2 diagonal branches. There is a aneurysmal segment just distal to one of the diagonal takeoff. D2 is a small caliber with 60 to 70% ostial stenosis. D3 is a very
small caliber vessel with a 70 to 80% ostial stenosis. There is robust [id number] collaterals.
Left Circumflex Artery (LCx): Large caliber vessel that gives off 1 major obtuse marginal (OM) branch as it courses along the atrio-ventricular (AV) groove. Proximal left circumflex has a 70% stenosis proximal to OM1 takeoff. Otherwise there is
moderate diffuse atherosclerotic plaque.
Right Coronary Artery (RCA): The right coronary artery is a medium caliber vessel with 100% chronic total in-stent occlusion with [id number] collaterals.
SEDATION: 47 minutes of procedural sedation was utilized. IV Midazolam and IV Fentanyl were administered. An independent manager medical was present to assist with and help manage the patient's level of consciousness and physiologic status.
RADIATION SUMMARY: Fluoro Time (min): 26.1, Dose (mGy): 2027.87, DAP (Gy.cm2) : 152.5
Closure Device: There were no immediate intra-procedural complications. The sheath was pulled in the nitriles lab technician and a vascular-band applied to the right wrist for radial artery hemostasis using the patent hemostasis technique.
CONCLUSIONS
1. Significant multivessel coronary artery disease.
2. Significantly elevated LVEDP at 32 mmHg.
RECOMMENDATIONS
1. Wean radial band per protocol. Monitor right hand perfusion and for bleeding from the radial site following removal of the vascular-band following trans-radial access.
2. Unfortunately with severe multivessel coronary artery disease, there is no PCI targets. Given patient is 68, we will pursue heart team discussion to see if he would even be a candidate for consideration for coronary artery bypass grafting
though given significant comorbid conditions, I worry about his morbidity and mortality risks perioperatively versus probable aggressive medical therapy.
3. Continue aggressive medical therapy for ischemic cardiomyopathy and risk factor modification for secondary CAD prevention.
4. Hydrate with normal saline to mitigate the risk of contrast-induced acute kidney injury.
Tiffanie Dugan MD, [facility], [facility]
Copy to: Jacques Smith D.O.
--- NOTE | 2024-11-11 10:21 | CM ---
Patient with Hx legally blind, L BKA and R foot amputation with Dx pleural effusion, CHF. O2 2L. PT/OT Evals pending. Receiving IV Lasix, Heparin gtt.
Messages with Dr Orellana; plan heart cath & thoracentesis today. Plan rehab evals tomorrow. No d/c for at least 48hrs.
Spoke with [facility] [employer] [facility] (ph [phone], fax [phone]); she did not receive the script for the hospital bed - refaxed and confirmed received. Bed will be delivered to patient's home today. They have also delivered w/c for
this patient in the past, no home O2 delivered.
Plan follow up after seen by PT/OT.
Plan watch for home O2 needs.
[2024-11-11 12:10] LABS: Body Fluid pH 7.53
[2024-11-11 12:23] LABS: Body Fluid Mononuclear 91.7 %; Body Fluid Polymorphonuclear 8.3 %; Body Fluid WBC 678 /CUMM
[2024-11-11] MEDS: LASIX IV ×2 (13:12→16:15)
[2024-11-11 13:17] LABS: B.E. 7.1 mmol/L; HCO3 36.1 mmol/L (21-28); O2 Saturation % 97.2 % (94-98); PO2 86 mmHg (83-108); pH 7.29 (7.35-7.45)
[2024-11-11 13:24] LABS: PCO2 75 mmHg (35-48)
--- NOTE | 2024-11-11 13:32 | CON.PUL ---
Consultation
Consultation Request
Date/Time Consultation Requested: 11/11/2024
Date/Time Consultation Performed: 11/11/2024
Requesting Provider: Andrez Orellana
Performing Provider: Toro Galvan
Reason for Consultation: Hypercapnia
Medical History
-
Chief Complaint: Shortness of breath
History of Present Illness:
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
worsening shortness of breath and lower extremity edema. Patient was noted to have pleural effusions bilateral along with pulmonary edema and elevated BNP. Echocardiogram showed decreased EF to about 30 to 35%. Patient also noted to have mild
troponin leak. He was medically managed with aspirin, statins, heparin drip and cardiology service was consulted. Patient was taken to Pneumatic Deicer Inspector on 11/11. His admission ABG showed chronic hypercapnia with nearly normal pH. On 11/11, in the Cath
Lab, patient was noted to be more short of breath, hypoxic, orthopneic and ABG showed slightly worsening hypercapnia with acidosis. Patient was started on BiPAP. Pulmonary consultation was requested for further input.
Patient has never smoked and does not carry any diagnosis of emphysema COPD or cystic fibrosis. No history of childhood asthma. Patient does report snoring. No prior diagnosis of sleep apnea order sleep study in the past.
Past Medical History: Reports Other
Additional Past Medical History:
Type 2 diabetes
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
Neuropathy
Psoriasis
DVT PE
Right lower extremities gangrenous
Past Surgical History: Reports Other
Additional Past Surgical History:
Left hip replacement
right eye removal
cardiac stent
right lower extremities angiogram with stent of right SFA and popliteal and peroneal artery
Toe amputation
Left BKA
Social History
Tobacco: Non-smoker
Alcohol: None
Drug: None
Personal:
Living: With Family
Family History
Family History: Not pertinent
Allergies / Home Medications
Allergies / Home Medications
Allergies
Allergy/AdvReac Type Severity Reaction Status Date / Time
pregabalin (From Lyrica) Allergy Unknown Verified 11/07/24 18:25
Home Medications
�Medication �Instructions �Recorded �Confirmed �Last Taken �Type
atorvastatin 10 mg tablet 10 mg PO DAILY High cholesterol 05/23/19 11/07/24 11/17/22 History
aspirin 81 mg chewable tablet 81 mg PO DAILY #0 tabs 07/14/22 11/07/24 11/17/22 Rx
insulin glargine U-300 conc 300 40 unit SC HS Diabetes 03/01/23 11/07/24 Unknown History
unit/mL (3 mL) subcutaneous pen
(Toujeo Max U-300 SoloStar)
insulin aspart U-100 100 unit/mL 1 sliding scale dose SC 11/07/24 11/07/24 Unknown History
subcutaneous solution (Novolog DIRECTED Diabetes
U-100 Insulin aspart)
warfarin 2 mg tablet 2 mg PO MUST ENTER TIMES Blood 11/07/24 11/07/24 Unknown History
Clot Prevention/Tx
warfarin 3 mg tablet 3 mg PO MUST ENTER TIMES Blood 11/07/24 11/07/24 Unknown History
Clot Prevention/Tx
Review of Systems
-
Hematologic/Lymphatic: Other (All 14 systems reviewed and negative except as stated above in the history of present illness.)
Vitals / Labs / Diagnostic Testing
Vital Signs
Temp Pulse Resp BP Pulse Ox
97.7 F 76 23 133/100 97
11/11/24 10:00 11/11/24 11:30 11/11/24 11:30 11/11/24 11:30 11/11/24 10:17
Lab Data
11/11/24 05:42
11/11/24 05:42
Laboratory Results
11/10/24 11/11/24 11/11/24
16:55 05:42 13:04
PT 17.6 H
INR 1.42
APTT 98.5 H 137.6 H
pH 7.29 L
pCO2 75 H*
pO2 86
HCO3 36.1 H
O2 Delivery Level
Microbiology
11/07/24 21:12 Urine Urine Culture - Final
11/08/24 00:33 Nose MRSA Screen - Final
No Methicillin Resistant Staphylococcus aureus isolated.
Diagnostic Testing:
Physical Exam
-
HEENT: Normocephalic
Cardiovascular: S1/S2 and Peripheral Edema
Respiratory: Clear, Non-Labored Respirations and Other (No wheezing on exam)
GI: Soft and Non Distended
Neurology: Awake and Alert
Skin: Warm
General: Comfortable
Assessment
-
#1. Acute on suspect chronic hypoxic and hypercapnic respiratory failure.
- At baseline serum Bicarb chronically elevated, admission ABG 7.30/64/118, suggestive of chronic nearly compensated hypercapnia. Suspect has underlying OHS/GLEN considering hypoxia, elevated Bicarbonate and pCO2> 45.
- 11/11, suspect supine position worsened dyspnea and sedation prior to cath decreased ventilation with resultant worsened hypercapnia and hypoxia. Continue BIPAP for now, while patient is supine with sheath in place. F/u VBG in 2 hours. Continue IV
lasix. Once patient can sit up, will take off BiPAP and monitor. Follow-up ABG improving. While patient is still hypervolemic, continue nighttime BiPAP and as needed during daytime.
#2. B/L Pleural effusion, Right greater then Left
- s/p Right sided Thoracentesis, 800 ml fluid removed, 11/11/2024
- Left side appears to be trace effusion, monitor for now
- Pleural fluid cultures, stain pending. pH 7.53, primarily mononuclear cells, pleural fluid LDH protein glucose etc. pending.
- Suspect effusions are related to underlying pulmonary edema and volume overload with congestive heart failure
- Lower lobe opacities are more suggestive of atelectasis related to pleural effusion rather than active pneumonia. Monitor off antibiotics. Patient is otherwise afebrile and has normal white count.
#3. Suspect OHS/GLEN
- High pretest probability of underlying sleep disordered breathing and possibly obesity hypoventilation syndrome
- Continue O2 support, optimize volume status. Avoid any sedating medication
- Patient will need outpatient sleep study for further evaluation
- Continue BiPAP nightly for now considering patient is still hypervolemic.
- Assess for need for home O2 prior to discharge. Once patient is euvolemic, will perform an overnight oximetry testing and monitor off positive airway pressure therapy.
#4. Acute on likely chronic congestive heart failure with reduced ejection fraction, EF 30 to 35%
- Continue diuresis as tolerated
- Cardiology service on case
#5. NSTEMI
- Patient has been on aspirin, statins, Coreg, heparin infusion. Cardiology service on case.
- Coronary angiogram, 11/11
#6. h/o DVT/PE, protein C deficiency.
- Chronically anticoagulated with Coumadin
- Currently on heparin drip
Other medical diagnoses
- History of coronary artery disease, PCI in 2012
- Severe peripheral vascular disease, status post PCI left lower extremity in 2013, history of BKA on the left, right partial foot amputation.
- Legal blindness
- Obesity
- Hyperlipidemia
- Diabetes
- Diabetes related neuropathy
Total time spent on this consultation/encounter _82__ minutes which includes review of history, physical exam, medications, laboratory data, personal review of imaging, extensive review of outpatient records, discussion with care team and
respiratory therapy.
Data:
CXR 10/2024: No radiographically demonstrable right pleural effusion.
Stable faint opacity at the left lung base. Subtle blunting of the left lateral costophrenic angle. Possible considerations include atelectasis, pneumonia, and/or trace pleural effusion.
ECHO 10/2024: 1. Left ventricle: Normal size with moderately reduced systolic function. The
ventricle is globally hypokinetic with an estimated ejection fraction of 30-35%
by Hightower's method of discs. There is stage III diastolic dysfunction
consistent with restrictive filling and increased filling pressures
2. Right ventricle: Normal
3. Atria: Mild left atrial dilation
4. Mitral valve: Trace mitral regurgitation
5. Aortic valve: Thickened and trileaflet aortic valve. Mild aortic stenosis
with a mean gradient of 11 mmHg. There is no aortic insufficiency
6. Tricuspid valve: Trace tricuspid regurgitation with estimated pulmonary
artery systolic pressures of 24 mmHg
7. When compared to his most recent echocardiogram from 07/13/2022, the LVEF is
now estimated at 30-35%. The LVEF on the prior study was 61%
[2024-11-11 13:40] LABS: B.E. 4.3 mmol/L; HCO3 31.9 mmol/L (21-28); PCO2 62 mmHg (35-48); PO2 103 mmHg (83-108); pH 7.32 (7.35-7.45)
[2024-11-11 14:03] LABS: ACT-LR - POC 303 Seconds (116-155)
[2024-11-11 14:15] LABS: B.E. 11.1 mmol/L; HCO3 39.7 mmol/L (21-28); O2 Saturation % 98.6 % (94-98); PO2 105 mmHg (83-108); pH 7.35 (7.35-7.45)
[2024-11-11 14:17] LABS: PCO2 72 mmHg (35-48)
[2024-11-11 14:35] LABS: Body Fluid Second Tech SS
--- NOTE | 2024-11-11 14:51 | CONSULT.CT ---
Addendum entered and electronically signed by Lalito Storm MD 11/11/24 15:32:
CARDIAC SURGERY ATTENDING:
I have reviewed Mr. Herrmann's medical history, cardiac catheterization images and other available clinical data. I agree with the medical consultation as noted below. This patient has an extremely complex past medical history. He has profound
peripheral vascular disease and is status post right lower extremity foot amputation and left lower extremity below the knee amputation. 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 He has had a prior collapse of his left lung following his PE. He has diabetes type 2 with diabetic neuropathy. He has chronic heart failure with a reduced ejection
fraction estimated at 30% with trace valvulopathy's.
His STS risk for CABG is as calculated below. I believe this grossly underestimates the true procedural/perioperative risk for this patient. I would not offer this patient surgery. Continue with medical therapy for his CAD. Will discuss with my
interventional cardiology colleagues.
Lalito Storm MD
[phone]
Original Note:
Consultation
-
Date/Time Consultation Requested: 11/11 1405
Date/Time Consultation Performed: 11/12 1451
Requesting Provider: Kylie HOLLEY
Performing Provider: Mushtaq HOLLEY for Emeterio HERRON
Reason for Consultation: CABG eval
Patient History
Physicians
Family Physician: None
Outpatient Membership Counselor: none
Inpatient Membership Counselor: Dr. Keating
History of Present Illness
68 y/o male with PMHx sig for CAD with BMS in 2012, HLD, HTN, Protein C deficiency, DVT/PE, DM 2, legally blind, left BKA and Right partial foot amputation presented to [facility] with complaints of shortness of breath. He was diuresed and
placed on 4 L of oxygen initially and is escalated off to BiPAP. Echocardiogram showed an EF of 30% and trace valvular disease. Today he was taken to the cardiac [facility] where multivessel disease was found.
Past Medical History
Past Medical History: Other
-CAD s/p BMS to RCA 03/2013 at [facility]
-PVD
s/p LLE stenting per patient 2013
LLE gangrene s/p L BKA
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
Left distal SFA, mid SFA, proximal SFA stents x3, left peroneal artery/TP trunk angioplasty 06/2022
-history of clotting disorder, pt believes protein C&S deficiency, on chronic OAC with coumadin
-h/o DVT/PE secondary to hypercoagulable state
-legally blind, secondary to hypercoagulable state, s/p R eye removal 1985
-chronic SOB, secondary to history of L collapsed lung secondary PE and hypercoagulable state
-obesity
-HLD
-DM2
-diabetic neuropathy
-psoriasis
Past Surgical History
Past Surgical History: Other
Left hip replacement
right eye removal
cardiac stent
right lower extremities angiogram with stent of right SFA and popliteal and peroneal artery
Toe amputation
Left BKA
Family History
Mother: N/A
Father: N/A
Family Medical History: Diabetes
Social History
Alcohol: None
Drug: None
Tobacco: Non-Smoker
Personal:
Living: With Family
Employment: Retired
Allergies
Allergy/AdvReac Type Severity Reaction Status Date / Time
pregabalin (From Lyrica) Allergy Unknown Verified 11/07/24 18:25
Home Medications
�Medication �Instructions �Recorded �Confirmed �Type
atorvastatin 10 mg tablet 10 mg PO DAILY High cholesterol 05/23/19 11/07/24 History
aspirin 81 mg chewable tablet 81 mg PO DAILY #0 tabs 07/14/22 11/07/24 Rx
insulin glargine U-300 conc 300 40 unit SC HS Diabetes 03/01/23 11/07/24 History
unit/mL (3 mL) subcutaneous pen
(Toujeo Max U-300 SoloStar)
insulin aspart U-100 100 unit/mL 1 sliding scale dose SC 11/07/24 11/07/24 History
subcutaneous solution (Novolog DIRECTED Diabetes
U-100 Insulin aspart)
warfarin 2 mg tablet 2 mg PO SUMOWEFRSA Blood Clot 11/07/24 11/11/24 History
Prevention/Tx
warfarin 3 mg tablet 3 mg PO TUTH Blood Clot 11/07/24 11/11/24 History
Prevention/Tx
Review of Systems
-
Unable to obtain full review of systems at this time due to: Other (bipap and lethargic)
History Source: Patient
General: Reports Fatigue
HEENT: Reports Other (dryness)
Respiratory: Reports SOB and POLANCO
Cardiac: Reports CAD and Known Vascular Disease
Abdomen/GI: Reports No Symptoms
: Reports No Symptoms
Musculoskeletal: Reports Edema
Skin: Reports Rash
Neurological: Reports Weakness
Vascular: Reports PVD
Physical Exam
Vital Signs
Temp 97.7 F 11/11/24 10:00
Temp route: Oral 11/11/24 10:00
Pulse 76 11/11/24 11:30
Rhythm: Normal sinus rhythm 11/11/24 09:20
With- PAC's, PJC's 11/11/24 09:20
Resp Rate 23 11/11/24 11:30
Blood pressure 133/100 11/11/24 11:30
Blood pressure extremity used: Left upper arm 11/11/24 10:00
Position: Lying 11/11/24 10:00
MAP (cuff-Pamela Monitor) 107 11/11/24 04:34
MAP 118 11/07/24 21:00
SaO2 97 11/11/24 10:17
Nasal Cannula flow liters per minute 2 11/11/24 10:17
Oxygen Mode of Delivery Room air 11/08/24 15:23
Other oxygen comment Attempted on RA when falling asleep 86%, placed back on 2 liters 97% 11/08/24 15:23
Acceptable pain level during hospitalization? 0 11/07/24 18:27
Can the patient verbally communicate their pain? Yes 11/11/24 10:00
Pain scale ratin 11/10/24 13:26
Actual Weight 132.4 kg 11/11/24 04:13
Body Mass Index (BMI) 38.5 11/11/24 04:13
Labs
11/11/24 05:42
11/11/24 05:42
PT 17.6 Sec (11.4-14.6) H 11/11/24 05:42
APTT 137.6 Sec (23.4-35.0) H 11/11/24 05:42
Hemoglobin A1c 5.6 % (4.0-5.6) 11/08/24 04:11
Troponin I 0.066 ng/ml H* 11/10/24 14:00
Kzr-O-Horfpiiyzzp Pept 9260 pg/ml 11/07/24 19:19
Arterial Blood Gases
pH 7.35 (7.35-7.45) 11/11/24 14:10
pCO2 72 mmHg (35-48) H* 11/11/24 14:10
pO2 105 mmHg (83-108) 11/11/24 14:10
HCO3 39.7 mmol/L (21-28) H 11/11/24 14:10
Base Excess 11.1 mmol/L 11/11/24 14:10
ABG O2 Sat (Measured) 98.6 % (94-98) H 11/11/24 14:10
O2 Delivery Level Not Reportable 11/11/24 14:10
Urinalysis
Urine Color Yellow 11/07/24 21:12
Urine Clarity Clear (Clear) 11/07/24 21:12
Urine pH 5.0 (5.0-9.0) 11/07/24 21:12
Ur Specific [place] 1.025 (<1.030) 11/07/24 21:12
Urine Ketones Negative (Negative) 11/07/24 21:12
Ur Occult Blood Reflex 1+ (Negative) A 11/07/24 21:12
Urine Bilirubin Negative (Negative) 11/07/24 21:12
Leukocyte Esterase Rfl Negative (Negative) 11/07/24 21:12
Urine RBC 3-6 /HPF (0-2) A 11/07/24 21:12
Urine WBC (Reflex) 3-5 /HPF (0-5) 11/07/24 21:12
Ur Squamous Epith Cells 3-5 /LPF (Few) 11/07/24 21:12
Urine Bacteria (Reflex) Many (Negative) A 11/07/24 21:12
Urine Mucus Few 11/07/24 21:12
Urine Glucose Negative (Negative) 11/07/24 21:12
Urine Albumin (Reflex) 4+ (Neg - Trace) A 11/07/24 21:12
Exam
General: Respiratory Distress (on bipap)
HEENT: Normocephalic
Neck: Trachea Midline
Respiratory: Rhonchi and Other (on bipap)
Cardiac: Regular Rhythm
GI: Other (obese)
Rectal: Deferred by Provider
Skin: Warm, Dry and Rash
Neuro: No Motor Deficits and Sedated
Extremities: Other (left BKA and right partial foot missing)
Lymph: No Lymphadenopathy
Psych: Calm
Assessment / Plan
-
68-year-old male with past medical history listed above presented with shortness of breath and found to have multivessel disease on left heart cath today. CT surgery was consulted for surgical evaluation.
#CAD
-Patient's case will be discussed with attending physician. Further details regarding surgical timing intervention will be determined after attending physicians full evaluation
-Given the patient's comorbidities he is currently not a surgical candidate.
-Continue heparin gtt
Procedure Type:�Isolated CABG
Perioperative Outcome Estimate %
Operative Mortality 13.8%
Morbidity & Mortality 31.6%
Stroke 2.85%
Renal Failure 11.6%
Reoperation 5.33%
Prolonged Ventilation 23.5%
Deep Sternal Wound Infection 0.833%
Long Hospital Stay (>14 days) 25.8%
Short Hospital Stay (<6 days)* 8.83%
Clinical Summary
Planned Surgery: Isolated CABG, Urgent, First cardiovascular surgery
Demographics: 68 year old, male, 132kg, 185cm, BMI: 38.6 kg/m�
Lab Values: Creatinine: 1.3 mg/dL, Hematocrit: 41%, WBC Count: 8.6 10�/�L, Platelet Count: 505838 cells/�L
PreOp Medications: Insulin diabetes control
Substance Abuse: Never smoker
Risk Factors / Comorbidities: Insulin-dependent Diabetes Mellitus, Hypertension
Pulmonary RF: Mild CLD, Recent Pneumonia
Vascular RF: Peripheral Artery Disease
Cardiac Status: Acute and chronic heart failure, NYHA Class IV, Ejection Fraction = 25%
Coronary Artery Disease: 3 vessels diseased, Left Main Stenosis >=50%, Non-ST Elevation LA, LA: 1 to 7 Days
Valve Disease: Aortic Stenosis, Trivial/Trace MR, Trivial/Trace TR
[2024-11-11] MEDS: DUONEB INH (14:52)
[2024-11-11 15:01] LABS: ACT-LR - POC 224 Seconds (116-155)
[2024-11-11 15:14] LABS: Body Fluid Amylase < 30 U/L; Body Fluid Glucose 92 mg/dl; Body Fluid LDH 67 U/L; Body Fluid Protein < 2.0 g/dl; Body Fluid Triglycerides < 30 mg/dl
[2024-11-11 15:51] LABS: Glucose - Point of Care 78 mg/dl (70-99)
[2024-11-11 16:00] LABS: ACT-LR - POC 187 Seconds (116-155)
[2024-11-11 16:09] LABS: Glucose - Point of Care 81 mg/dl (70-99)
--- NOTE | 2024-11-11 16:18 | PTCARENOTE ---
ACT 187. Dr. Dugan aware. Order given to pull R femoral sheath. Report called to IMU.
--- NOTE | 2024-11-11 16:45 | SUR.OPER ---
Patient received from laboratory engineer. Patient continues on BiPAP and to remain flat until 1814. Cath sites (right radial and right femoral) reviewed with laboratory engineer nurse, cristina CDI. Came to IMU on Nitro gtt, keep SBP <160 and titrate.
[2024-11-11 18:03] LABS: Venous Blood Gas B.E. 14.3 mmol/L (-4 to +4); Venous Blood Gas HCO3 43.6 mmol/L (22-27); Venous Blood Gas O2 Sat % 87.6 %; Venous Blood Gas pH 7.35 (7.32-7.43); Venous Blood Gas pO2 56 mmHg (30-50)
[2024-11-11 18:04] LABS: Venous Blood Gas O2 Therapy Air 4l
[2024-11-11 18:05] LABS: Venous Blood Gas pCO2 79 mmHg (35-48)
[2024-11-11 21:14] LABS: Glucose - Point of Care 137 mg/dl (70-99)
[2024-11-11] MEDS: LANTUS 0.2 UNITS SC (22:11)
[2024-11-11 23:10] LABS: APTT 33.8 Sec (23.4-35.0)
[2024-11-11] MEDS: HEPARIN 25000 UNITS/250 ML IV (23:41)
[2024-11-12] VITALS (17 sets, daily range): BP systolic 99–146; BP diastolic 52–122; PULSE 75–80; O2SAT 97–98; BMI 38.7
--- NOTE | 2024-11-12 00:25 | PTCARENOTE ---
per order restarted post cath at rate it was held at which was 11. andie ptt before restarting, resulted at 33.8. Communicated with BOILER REPAIR SUPERVISOR. Due to low ptt result, BOILER REPAIR SUPERVISOR instructed to increase rate base on protocol and verified with pharmacy as well.
Current gtt running at 13. will repeat ptt in 6 hours.
[2024-11-12 06:33] LABS: Hematocrit 37.5 % (39.0-52.0); Mean Corpuscular Hgb 27.4 pg (27.0-31.0); Mean Corpuscular Volume 85.6 fL (80.0-94.0); Mean Platelet Volume 11.9 fL (7.4-10.4); Platelet Count 104 10^3/uL (130-400); Red Blood Cell Count 4.38 10^6/uL (4.70-6.10); Red Cell Dist. Width 14.3 % (11.5-14.5); White Blood Cell Count 8.9 10^3/uL (4.8-10.8)
[2024-11-12 06:45] LABS: APTT 150.5 Sec (23.4-35.0)
[2024-11-12 07:34] LABS: Blood Urea Nitrogen 30 mg/dl (9-20); Calcium 8.7 mg/dl (8.4-10.2); Chloride 95 mmol/L (98-107); Estimated Creatinine Clearance 89 ml/min; Glucose 125 mg/dl (70-99); Magnesium 1.6 mg/dl (1.6-2.3); Potassium 3.8 mmol/L (3.5-5.1); Sodium 139 mmol/L (135-145); eGFR > 60.00
[2024-11-12] MEDS: DUONEB 3 ML INH ×3 (07:40→20:23)
[2024-11-12 07:49] LABS: Carbon Dioxide 38 mmol/L (22-30)
[2024-11-12] MEDS: NOVOLOG FLEXPEN-LOW RESISTANCE SC (08:16)
[2024-11-12] MEDS: LASIX 40 MG IV (08:17)
[2024-11-12] MEDS: LIPITOR 10 MG PO (08:18)
[2024-11-12] MEDS: COREG 3.125 MG PO ×2 (08:18→19:51)
[2024-11-12] MEDS: LOW STRENGTH ASPIRIN 81 MG PO (08:19)
[2024-11-12] MEDS: DESENEX/MITRAZOL/ZEASORB 1 APPLIC TOPICAL ×2 (08:19→19:53)
[2024-11-12 08:21] LABS: Glucose - Point of Care 122 mg/dl (70-99)
--- NOTE | 2024-11-12 09:44 | PN.CDI ---
CDI
- -
CDI:
Physician Documentation Request
Admit Date: 11/07/24 21:20
Dear Doctor Esteban,
11/07 CXR: 'Small left pleural effusion with associated atelectasis and/or pneumonia.'
11/10 Hospitalist PN: 'Acute hypoxic respiratory failure secondary to CHF-CT abdomen pelvis with concern of pneumonia, Continue oxygen. Added DuoNebs. Wean as tolerated'
The diagnosis of pneumonia was documented on 11/10, but is not consistently noted in subsequent documentation.
Please clarify the following:
____ - Pneumonia was present on admission and is now resolved.
____ - Pneumonia was present on admission and is still being monitored, evaluated or treated
____ - Pneumonia was ruled out
____ - Pneumonia is still a likely, suspected, probable diagnosis
____ - Other
____ - Unable to determine
Use of terms such as suspected, likely, concern for, or probable (associated with a specific diagnosis that is being evaluated, monitored, or treated as if it exists) are acceptable and can be coded in the inpatient setting, when documented at the
time of discharge.
Thank you,
Saskia Cintron RN, BSN
CDI Specialist
Available via [employer] text
Please use your independent medical judgment in providing your response.
--- NOTE | 2024-11-12 10:10 | W.PN.CARDCBS ---
Addendum entered and electronically signed by Erinn Cook PA-C 11/12/24 17:03:
Per case management Entresto will be $169.74 a month and Farxiga is $144.38 a month. Talked w/ patient at bedside and Arianna over the phone. Explained rationale for medical therapy with Entresto and Farxiga. They would like try entresto and
think about Farxiga.
Addendum entered and electronically signed by Tiffanie Dugan MD 11/12/24 15:26:
I saw and examined the patient.
The Lumber Material Handler's note was reviewed and I agree with the note.
Comment: Patient is status post heart catheterization yesterday with multivessel coronary artery disease for which heart team was taken and CT surgery was consulted. Overall his breathing has improved after thoracentesis yesterday and ongoing
diuresis.
Vitals and lab work reviewed. On exam patient is morbidly obese, awake, alert and oriented x 3, regular rate, normal S1 and S2, no murmurs, rubs or gallops but distant heart sounds, elevated JVD PE, bibasilar Rales, abdomen is obese, soft,
nontender with active bowel sounds, cath access sites without evidence of hematoma or bruit, warm extremities without significant edema, evidence of Psoriatec rash on exam
Recommendations:
1. Type II NSTEMI due to acute decompensated heart failure new ischemic cardiomyopathy. Heart catheterization with significant multivessel coronary artery disease where heart team discussion was pursued. Per CT surgery, patient's morbidity and
mortality from a surgical standpoint is too high given significant comorbid conditions and therefore patient is not deemed to be a surgical candidate.
2. I reviewed the heart catheterization completed yesterday once again and unfortunately I do not think patient has good PCI targets with diffuse significant left main disease especially in the setting of severe PAD and other comorbid conditions.
3. Recommendation for aggressive GDMT for ischemic cardiomyopathy. Plan to wean off nitroglycerin drip. We will initiate Entresto while continuing carvedilol and also have case management look into the cost for SGLT2 inhibitor especially with
underlying diabetes. He will continue daily aspirin and we will increase atorvastatin dose to 40 mg daily.
4. Plan to resume warfarin tonight and discontinue heparin once INR is above 2.
5. Continue aggressive IV diuresis by increasing Lasix dose to 80 mg twice daily with plan to replete potassium and magnesium as warranted and close monitoring of renal function.
6. PT/OT.
7. Eventual referral for outpatient cardiac rehab.
Discussed all of the above with patient and nursing at bedside.
Tiffanie Dugan MD, [facility], [facility]
Total Time spent: 52mins
Original Note:
Today's Communication / Plan
-
Turned down by CT surgery, poor targets for PCI
Plan for aggressive medical management of CAD and heart failure with GDMT
Wean off nitroglycerin drip
Increase Lasix to 80 mg IV twice daily
Replete potassium with 40 mEq x 1
Start Entresto 24/26 mg twice a day
Case management consult for SGLT2 inhibitor
Increase atorvastatin to 40 mg daily
No further cardiac intervention scheduled. Stable to resume warfarin and discontinue heparin once INR greater than 2
Impression / Plan
-
Primary Nursing Home Physician: none; initial consult Dr Tomasz Keating
Assessment:
Presentation with SOB 11/07/2024
Acute hypoxic respiratory failure
Acute on chronic heart failure with reduced ejection fraction, EF 30 to 35%, proBNP 9260
Hypertensive urgency, improved
Supratherapeutic INR, off coumadin currently on heparin
Abnormal EKG with elevated troponin, peak 0.073
Right sided pleural effusion seen on CT, status post thoracentesis 800 cc of clear yellow pleural fluid 11/11/2024
Multivessel coronary artery disease on cath 11/11/2024
CAD
s/p BMS to RCA 03/2013 at [facility]
PVD
s/p LLE stenting per patient 2013
LLE gangrene s/p L BKA
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
Left distal SFA, mid SFA, proximal SFA stents x3, left peroneal artery/TP trunk angioplasty 06/2022
history of clotting disorder, pt believes protein C&S deficiency, on chronic OAC with coumadin
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
legally blind, secondary to hypercoagulable state, s/p R eye removal 1985
chronic SOB, secondary to history of L collapsed lung secondary PE and hypercoagulable state
obesity
HLD
DM2
diabetic neuropathy
psoriasis
L hip replacement 1985
Cardiac catheterization 11/07/2024: LM: Diffuse 50% stenosis with significant pressure damping of about 30 to 40 mmhg upon selective engagement with 5 [place] catheter. LAD: Mid diffuse 70 to 80% stenosis banding across takeoff of 2 diagonal
branches. D2 small caliber with 60 to 70% ostial stenosis. D3 very small caliber with 70 to 80% ostial stenosis. Robust liev-ld-czouc collaterals. Left circumflex: 70% proximal stenosis at OM1 takeoff. RCA: 100% in-stent chronic total occlusion
with tgyu-mq-ixaze collaterals.
ECHO 07/13/2022: Technically difficult study, Definity used, EF 61%, no gross segmental wall motion abnormalities, mild concentric LVH, no significant valvular pathology within the limits of study
ECHO 11/08/2024: Moderately reduced systolic function, global hypokinesis, EF 30-35%, G3 DD, normal RV size and function, mild mean gradient 11 mmHg, trace TR PASP 24 mmHg
Plan:
Patient presented 11/07/2024 with shortness of breath and acute hypoxia. proBNP elevated 9260 and chest x-ray with small left pleural effusion and mild CHF, new diagnosis.
Heart failure with reduced ejection fraction which was new diagnosis with a EF of 30 to 35%.
- Found to have elevated filling pressures on cardiac catheterization with LVEDP of 32 mmHg
- Will increase Lasix to 80 mg IV twice daily (11/12/2024). Creatinine stable at 1.1. Was not on diuretic prior to admission
- GDMT continue carvedilol. Add Entresto 24/26 mg twice daily (11/12/2024). Consider SGLT2 inhibitor
- Will have case management do cost analysis for Entresto and SGLT2 inhibitor/Farxiga vs Jardiance
- Potassium 3.8 will replete with 40 mEq
- Continue to monitor renal function and electrolytes
- Right sided pleural effusion status post thoracentesis with 800 cc clear yellow pleural fluid 11/11/2024
- Wean oxygen as able, patient on 3 L at time of this evaluation
- CHF education
Underwent cardiac catheterization which demonstrated multivessel coronary artery disease. Given multiple comorbidities and chronic medical conditions patient was evaluated by CT surgery and deemed high risk. Patient was found to have poor
percutaneous targets.
- Abnormal troponin, suspect nonischemic myocardial injury secondary to acute heart failure exacerbation with no culprit coronary lesion on catheterization
- Plan is for aggressive medical management of CAD. Continue Coreg and aspirin
- Wean off nitroglycerin with advancement of GDMT
- Lipids TC 97, HDL 35, LDL 44, triglycerides 90. Given multivessel coronary artery disease with poor targets increase atorvastatin to 40 mg
- wean supp O2 as able
- Per review of telemetry patient appears to be in sinus rhythm with PACs, occasional runs of atrial tachycardia and some accelerated junctional rhythm. Overall heart rate is well-controlled. Continue Coreg 3.125 mg twice daily
h/o DVT/PE secondary to hypercoagulable state, chronically maintained on warfarin
- has been on heparin with INR less than 2. No further cardiac procedures are scheduled. Okay to resume warfarin and discontinue heparin once INR greater than 2
- PT/OT
- will need ongoing OP cardiac care moving forward
Discussed with nursing, hospitalist and patient
Progress Note - Nursing Home Physician
Subjective
Date of Service: November 12, 2024
Patient seen and examined. Patient sitting up in bed. Still on 3 L of oxygen at time of this evaluation. Patient currently denies chest pain, shortness of breath at rest, orthopnea or PND.
Objective
Labs:
11/12/24 06:07
11/12/24 06:07
Labs
Hgb 12.0 g/dL (13.0-18.0) L 11/12/24 06:07
Hct 37.5 % (39.0-52.0) L 11/12/24 06:07
Plt Count 104 10^3/uL (130-400) L 11/12/24 06:07
PT 17.6 Sec (11.4-14.6) H 11/11/24 05:42
INR 1.42 11/11/24 05:42
APTT 150.5 Sec (23.4-35.0) H* 11/12/24 06:07
Sodium 139 mmol/L (135-145) 11/12/24 06:07
Potassium 3.8 mmol/L (3.5-5.1) 11/12/24 06:07
BUN 30 mg/dl (9-20) H 11/12/24 06:07
Creatinine 1.1 mg/dL (0.7-1.3) 11/12/24 06:07
Glucose 125 mg/dl (70-99) H 11/12/24 06:07
Troponins
11/10/24
14:00
Troponin I 0.066 H*
Vital Signs and I&O:
Vital Signs
Temp Pulse Resp BP Pulse Ox
97.8 F 76 18 127/65 100
11/12/24 07:05 11/12/24 08:17 11/12/24 07:41 11/12/24 08:17 11/12/24 07:41
Vital Signs
Temp Pulse Resp BP Pulse Ox
97.8 F 76 18 127/65 100
11/12/24 07:05 11/12/24 08:17 11/12/24 07:41 11/12/24 08:17 11/12/24 07:41
Intake & Output
11/10/24 11/11/24 11/12/24 11/13/24
06:59 06:59 06:59 06:59
Intake Total 880 / 880 360 / 360
Output Total 1135 / 1135 750 / 750 900 / 900
Balance -255 / -255 -390 / -390 -900 / -900
Physical Exam
Physical Exam
GENERAL: no acute distress, sitting in bed on nasal cannula
EYE: sclera anicteric, atraumatic normocephalic
CARDIAC: Regular rate and rhythm, +S1/S2, no murmur, rubs, or gallops
PULMONARY: Mildly decreased breath sounds at bases otherwise diminished possibly due to effort, no wheezes,crackles; on oxygen
ABDOMEN: Obese, soft, without focal tenderness or distention
Extremities: Left BKA, right AKA with trace edema bilaterally, improving
NEUROLOGICAL: Alert and oriented x3
SKIN: Warm, dry, pink, no rashes
--- NOTE | 2024-11-12 11:27 | PTCARENOTE ---
Patient AAOx3, withdrawn and flat. States sadness surrounding being in the hospital. Patient lacking motivation, will continue to encourage. Cath sites CDI, neurovascular checks stable. Patient making needs known. Heparin gtt infusing per protocol.
Titrating Nitro drip per protocol. Weaned to RA. VSS. Will closely monitor.
--- NOTE | 2024-11-12 11:31 | W.PN.PUL3 ---
Today's Communication / Plan
-
- Continue diuresis as tolerated
- Follow-up venous blood gas in a.m.
- BiPAP support as needed
- Avoid sedation and avoid supine position
Assessment
-
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
worsening shortness of breath and lower extremity edema. Patient was noted to have pleural effusions bilateral along with pulmonary edema and elevated BNP. Echocardiogram showed decreased EF to about 30 to 35%. Patient also noted to have mild
troponin leak. He was medically managed with aspirin, statins, heparin drip and cardiology service was consulted. Patient was taken to [facility] on 11/11. His admission ABG showed chronic hypercapnia with nearly normal pH. On 11/11, in the Cath
Lab, patient was noted to be more short of breath, hypoxic, orthopneic and ABG showed slightly worsening hypercapnia with acidosis. Patient was started on BiPAP. Pulmonary consultation was requested for further input.
Patient has never smoked and does not carry any diagnosis of emphysema COPD or cystic fibrosis. No history of childhood asthma. Patient does report snoring. No prior diagnosis of sleep apnea order sleep study in the past.
#1. Acute on suspect chronic hypoxic and hypercapnic respiratory failure.
- At baseline serum Bicarb chronically elevated, admission ABG 7.30/64/118, suggestive of chronic nearly compensated hypercapnia. Suspect has underlying OHS/GLEN considering hypoxia, elevated Bicarbonate and pCO2> 45.
- 11/11, suspect supine position worsened dyspnea and sedation prior to cath decreased ventilation with resultant worsened hypercapnia and hypoxia. Responded well to BiPAP with improving blood gas. Patient did not wear BiPAP overnight and is
awake, alert this morning on supplemental O2.
- Avoid sedation, avoid supine position.
#2. B/L Pleural effusion, Right greater then Left
- s/p Right sided Thoracentesis (11/11), 800 ml fluid removed, LDH 67, protein less than 2.0, suggestive of transudative effusion
- Left side appears to be trace effusion, monitor for now
- Pleural fluid cultures, stain pending
- Suspect effusions are related to underlying pulmonary edema and volume overload with congestive heart failure
- Lower lobe opacities are more suggestive of atelectasis related to pleural effusion rather than active pneumonia. Monitor off antibiotics. Patient is otherwise afebrile and has normal white count.
#3. Suspect OHS/LGEN
- High pretest probability of underlying sleep disordered breathing and possibly obesity hypoventilation syndrome
- Continue O2 support, optimize volume status. Avoid any sedating medication
- Patient does not want to pursue sleep study.
- Ideally should continue BiPAP nightly while patient is hypervolemic, however patient does not want to use it. Currently can use BiPAP as needed. Check VBG in a.m.
- Assess for need for home O2 prior to discharge. Once patient is euvolemic, will perform an overnight oximetry testing and monitor off positive airway pressure therapy.
#4. Acute on likely chronic congestive heart failure with reduced ejection fraction, EF 30 to 35%
- Continue diuresis as tolerated
- Cardiology service on case
#5. NSTEMI
- Patient has been on aspirin, statins, Coreg, heparin infusion. Cardiology service on case.
- Coronary angiogram, 11/11
#6. h/o DVT/PE, protein C deficiency.
- Chronically anticoagulated with Coumadin
- Currently on heparin drip
Other medical diagnoses
- History of coronary artery disease, PCI in 2012
- Severe peripheral vascular disease, status post PCI left lower extremity in 2013, history of BKA on the left, right partial foot amputation.
- Legal blindness
- Obesity
- Hyperlipidemia
- Diabetes
- Diabetes related neuropathy
Total time spent on this consultation/encounter _47__ minutes which includes review of history, physical exam, medications, laboratory data, personal review of imaging, extensive review of outpatient records, discussion with care team and
respiratory therapy.
Data:
CXR 10/2024: No radiographically demonstrable right pleural effusion.
Stable faint opacity at the left lung base. Subtle blunting of the left lateral costophrenic angle. Possible considerations include atelectasis, pneumonia, and/or trace pleural effusion.
ECHO 10/2024: 1. Left ventricle: Normal size with moderately reduced systolic function. The
ventricle is globally hypokinetic with an estimated ejection fraction of 30-35%
by Hightower's method of discs. There is stage III diastolic dysfunction
consistent with restrictive filling and increased filling pressures
2. Right ventricle: Normal
3. Atria: Mild left atrial dilation
4. Mitral valve: Trace mitral regurgitation
5. Aortic valve: Thickened and trileaflet aortic valve. Mild aortic stenosis
with a mean gradient of 11 mmHg. There is no aortic insufficiency
6. Tricuspid valve: Trace tricuspid regurgitation with estimated pulmonary
artery systolic pressures of 24 mmHg
7. When compared to his most recent echocardiogram from 07/13/2022, the LVEF is
now estimated at 30-35%. The LVEF on the prior study was 61%
Subjective Data
-
Date of Service:
Date of Service: November 12, 2024
Subjective:
Patient comfortably sitting in bed, no distress, on supplemental oxygen.
Review of Systems
Genitourinary: Other (No new symptoms reported.)
Objective Data
Data Reviewed
Vital Signs / I&O / Oxygen:
Vital Signs
Temp Pulse Resp BP Pulse Ox
97.8 F 93 14 129/70 98
11/12/24 07:05 11/12/24 10:00 11/12/24 10:00 11/12/24 10:00 11/12/24 11:03
Intake and Output
11/11/24 11/12/24 11/13/24
06:59 06:59 06:59
Intake Total 360 / 360
Output Total 750 / 750 900 / 900
Balance -390 / -390 -900 / -900
SaO2 98
Nasal Cannula flow liters per 3
minute
Physical Exam
General: Comfortable
HEENT: Normocephalic
Cardiovascular: S1-S2, Regular Rhythm and Peripheral Edema (Improving bilateral lower extremity edema)
Respiratory: Clear and Non-Labored Respirations
GI: Soft and Non Distended
Neurology: Awake and Alert
Labs/Micro/Reports
Lab Data
11/12/24 06:07
11/12/24 06:07
Laboratory Results
11/11/24 11/11/24 11/11/24
13:04 13:28 13:55
APTT Cancelled
pH 7.29 L 7.32 L
pCO2 75 H* 62 H
pO2 86 103
HCO3 36.1 H 31.9 H
O2 Delivery Level
11/11/24 11/11/24 11/12/24
14:10 22:49 06:07
APTT 33.8 150.5 H*
pH 7.35
pCO2 72 H*
pO2 105
HCO3 39.7 H
O2 Delivery Level Not Reportable
Microbiology
11/11/24 11:35 Pleural Fluid Body Fluid Culture - Preliminary
No Growth After 18-24 Hours
11/11/24 11:35 Pleural Fluid Gram Stain - Preliminary
11/07/24 21:12 Urine Urine Culture - Final
11/08/24 00:33 Nose MRSA Screen - Final
No Methicillin Resistant Staphylococcus aureus isolated.
--- NOTE | 2024-11-12 13:01 | CM ---
Patient with Hx legally blind, L BKA and R foot amputation with Dx pleural effusion, CHF. Room air. Receiving IV Lasix, Heparin gtt, Nitro gtt. PT/OT Evals; assist of 2, recommend skilled rehab.
Met with patient and spoke with Arianna by phone; both agree that patient will return home at discharge, despite current functional status. 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
hopefully don prosthetic leg again soon, once leg swelling improves. would like patient to have [facility] again for SN/PT/OT and patient agrees. Arianna is coordinating with [facility] for hospital bed delivery, which may be tomorrow.
Referral to [facility] Liaison
CM Consult: Rolle check Farxiga, Entresto, Jardiance
-Patient/ agree to Entresto $169.74/month) or Farxiga ($144.38/month), dapagliflozin is not covered, and Jardiance is not ok with them due to cost $1165.46/month. Patient asking for doctor to explain to him the reason for the meds.
-Provided outcome of rolle check to Erinn TAFOYA with her response: We will start Farxiga and Entresto. Either Dr. Dugan or I will talk with them.
-Farxiga and Entresto Free Month Cards given to patient.
Plan continue to follow patient's clinical status and mobility.
Plan home with VN, with hospital bed, with Farxiga and Entresto Free Month Cards.
[2024-11-12] MEDS: NOVOLOG FLEXPEN-LOW RESISTANCE 1 UNITS SC ×2 (13:10→16:54)
--- NOTE | 2024-11-12 13:12 | W.PN.HOSP.TC ---
Today's Communication/Plan
-
resume Coumadin and continue IV heparin
continue IV Lasix
continue medical management per Cards/CTS
SNF rehab
Assessment / Plan
Assessment / Plan
Assessment:
Acute hypoxic and hypercapnic respiratory failure due to acute CHF (Pneumonia was ruled out)
- wean O2 as able
- wean BiPAP
- prn nebs
- pulm following
Acute on chronic HFrEF
- continue IV Lasix - requires intensive monitoring of I/Os, weights, lytes
- Echo: EF now 35% from 60%
- GDMT: Coreg/Entresto
acute R pleural effusion from acute CHF
- s/p thoracentesis 11/11; 800 cc removed.
non-ischemic myocardial injury in setting of acute CHF
CAD s/p stents 2014
- LHC: severe multivessel coronary artery disease, there is no PCI targets per Cardiology. CT surgery also evaluated and patient felt a poor surgical candidate
- continue medical management: ASA/Statin/BB
Right sided abdominal pain
- CT abdomen pelvis showed: No significant acute process in the abdomen or pelvis. Diverticulosis coli. Cholelithiasis.
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
Supratherapeutic INR
- resume Coumadin f/u INRs and continue IV Heparin until INR>2. IV heparin requires intensive monitoring of PTTs
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
Hx Right partial foot amputation
- PT/OT - SNF rehab
History of diabetes mellitus
- Continue home medication
- Insulin sliding scale
- Diabetic diet
- Hemoglobin A1c 5.6
- Toujeo 25 units continued
Accelerated essential hypertension
- Blood pressure acceptable
DVT ppx: Heparin drip
Code: Full
Anticipated Discharge: > 48 hours
Subjective/Interval History
-
Date of Service: November 12, 2024
resting comfortably, no complaints at present
Objective Data
-
Labs:
Laboratory Results
11/12/24 11/12/24
06:07 14:15
WBC 8.9
Hgb 12.0 L
Hct 37.5 L
Plt Count 104 L
APTT 150.5 H* Pending
Sodium 139
Potassium 3.8
Chloride 95 L
Carbon Dioxide 38 H
BUN 30 H
Creatinine 1.1
Glucose 125 H
Calcium 8.7
Vital Signs:
Vital Signs
Temp Pulse Resp BP Pulse Ox
97.8 F 67 17 143/74 98
11/12/24 07:05 11/12/24 12:00 11/12/24 12:00 11/12/24 12:00 11/12/24 12:21
I&O
11/11/24 11/12/24 11/13/24
06:59 06:59 06:59
Intake Total 360 / 360
Output Total 750 / 750 900 / 900 200 / 200
Balance -390 / -390 -900 / -900 -200 / -200
Physical Exam
-
General: No Apparent Distress
HEENT: Normocephalic and Atraumatic
Respiratory: Negative Wheezes
GI: Soft
Neuro: AO x 3
Psych: Calm
Data Reviewed
-
Total Time Spent with Patient (in minutes): 51
Labs: Labs Reviewed by me
[2024-11-12 13:18] LABS: Glucose - Point of Care 168 mg/dl (70-99)
[2024-11-12] MEDS: ENTRESTO 24 MG/26 MG 1 TAB PO ×2 (13:23→21:22)
[2024-11-12 14:48] LABS: APTT 73.8 Sec (23.4-35.0)
--- NOTE | 2024-11-12 15:28 | VNURNOTE ---
Call placed to patient's spouse Arianna. She was unable to speak d/t being at work, requested a call back in 30mins. Called spouse at requested time, no answer, left message. [facility].
[2024-11-12 16:06] LABS: Glucose - Point of Care 159 mg/dl (70-99)
[2024-11-12] MEDS: LASIX 80 MG IV (16:55)
[2024-11-12] MEDS: LIPITOR 40 MG PO (17:01)
[2024-11-12] MEDS: COUMADIN 3 MG PO (17:01)
[2024-11-12 21:13] LABS: APTT 110.3 Sec (23.4-35.0)
[2024-11-12 21:16] LABS: Glucose - Point of Care 281 mg/dl (70-99)
[2024-11-12] MEDS: LANTUS 0.2 UNITS SC (21:24)
--- NOTE | 2024-11-12 22:49 | PTCARENOTE ---
patient stated he was short of breath to this RN. TT respiratory for prn breathing treatment. Patient stated treatment helped. at bedside for a few hours. Patient has no other complaints. assessment and vitals as charted. heparin gtt at 11.
[2024-11-13] VITALS (16 sets, daily range): BP systolic 71–116; BP diastolic 54–90; PULSE 69; O2SAT 97; BMI 37.8
[2024-11-13] MEDS: HEPARIN 25000 UNITS/250 ML IV ×2 (00:10→22:53)
[2024-11-13 04:29] LABS: INR 1.68
[2024-11-13 05:28] LABS: Blood Urea Nitrogen 36 mg/dl (9-20); Calcium 8.4 mg/dl (8.4-10.2); Carbon Dioxide 37 mmol/L (22-30); Chloride 94 mmol/L (98-107); Estimated Creatinine Clearance 65 ml/min; Glucose 189 mg/dl (70-99); Potassium 3.4 mmol/L (3.5-5.1); Sodium 138 mmol/L (135-145); eGFR 49.77
[2024-11-13 05:32] LABS: APTT 77.1 Sec (23.4-35.0)
[2024-11-13 05:48] LABS: Hematocrit 35.2 % (39.0-52.0); Hemoglobin 11.4 g/dL (13.0-18.0); Mean Corp Hgb Conc. 32.4 g/dL (33.0-37.0); Mean Corpuscular Hgb 27.7 pg (27.0-31.0); Mean Corpuscular Volume 85.4 fL (80.0-94.0); Platelet Count 87 10^3/uL (130-400); Red Blood Cell Count 4.12 10^6/uL (4.70-6.10); Red Cell Dist. Width 14.4 % (11.5-14.5); White Blood Cell Count 8.5 10^3/uL (4.8-10.8)
[2024-11-13 05:49] LABS: Mean Platelet Volume 11.6 fL (7.4-10.4)
[2024-11-13] MEDS: LASIX 80 MG IV (07:23)
[2024-11-13] MEDS: NOVOLOG FLEXPEN-LOW RESISTANCE 1 UNITS SC ×2 (07:24→13:16)
[2024-11-13] MEDS: LOW STRENGTH ASPIRIN 81 MG PO (07:25)
[2024-11-13] MEDS: ENTRESTO 24 MG/26 MG 1 TAB PO (07:25)
[2024-11-13] MEDS: COREG 3.125 MG PO ×2 (07:28→20:17)
[2024-11-13] MEDS: DESENEX/MITRAZOL/ZEASORB 1 APPLIC TOPICAL ×2 (07:28→20:17)
[2024-11-13 07:29] LABS: Glucose - Point of Care 166 mg/dl (70-99)
[2024-11-13] MEDS: DUONEB 3 ML INH (07:50)
[2024-11-13 07:56] LABS: Venous Blood Gas B.E. 13.7 mmol/L (-4 to +4); Venous Blood Gas HCO3 42.4 mmol/L (22-27); Venous Blood Gas O2 Sat % 91.9 %; Venous Blood Gas pH 7.36 (7.32-7.43); Venous Blood Gas pO2 62 mmHg (30-50)
[2024-11-13 07:58] LABS: Venous Blood Gas pCO2 75 mmHg (35-48)
--- NOTE | 2024-11-13 08:49 | PTCARENOTE ---
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 Patient resting comfortably in bed. AAO, VSS. No events noted overnight. No complaints of pain. Heparin gtt therapeutic at 1100 units/hr, 11mL/hr. PTT draw tomorrow AM. No fluids through IV. Qshift
neurovascular checks. No test scheduled at this time. Call read in reach.
--- NOTE | 2024-11-13 09:46 | W.PN.CARDCBS ---
Addendum entered and electronically signed by Bairon Lindo MD 11/13/24 10:18:
I saw and examined the patient.
The Repairer [employer]'s note was reviewed and I agree with the note.
Comment:
GEN: No distress, awake, Ox3
HEENT: supple, anicteric, mmm
LUNGS: CTA, no wheezes/rales
CV: Reg, S1/S2, 06/03 syst LSB, no gallop
ABD: soft, BS+, NT/ND
EXT: L BKA
NEURO: Gross non-focal
SKIN: No rash
PLan:
Cath results discussed with patient. Plan is for medical therapy of multivessel coronary artery disease.
Creatinine up to 1.5. Possible mild contrast-induced nephropathy 48 hours after cath with diabetes. Will hold Lasix and Entresto tonight and reassess creatinine in a.m.
Continue medical therapy for coronary artery disease with Coreg, aspirin, and atorvastatin.
His weight is overall down and he is diuresing well. He still having symptoms of chest pains and shortness of breath.
If blood pressure tolerates could consider adding long-acting nitrates. OFF NTG drip.
Continue physical therapy.
INR 1.68. Continue heparin bridge until INR greater than 2. Continue Coumadin.
Original Note:
Today's Communication / Plan
-
Continue medical management of MV CAD
Hold Lasix and Entresto for now given creat up to 1.5 following cath 11/11.
Will reassess and hopefully restart in AM.
Continue heparin. INR 1.68. Now back on coumadin. Stop heparin once INR greater than 2.
Impression / Plan
-
Short Goods Drier: None prior to admission, initially seen by Dr. Keating
Assessment:
Presented with SOB 11/07/2024
Acute hypoxic respiratory failure
Acute on chronic HFrEF
Ischemic CM EF 30 to 35%
Hypertensive urgency, improved
Type II NSTEMI
R pleural effusion
s/p thoracentesis for 800 cc 11/11/2024
CAD
s/p BMS to RCA 03/2013 at [place]
MV CAD by cath 11/11/2024
PVD
s/p LLE stenting per patient 2013
LLE gangrene s/p L BKA
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
Left distal SFA, mid SFA, proximal SFA stents x3, left peroneal artery/TP trunk angioplasty 06/2022
h/o clotting disorder, pt believes protein C&S deficiency, on chronic Coumadin
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
Legally blind, secondary to hypercoagulable state, s/p R eye removal 1985
Chronic SOB, secondary to history of L collapsed lung secondary PE and hypercoagulable state
Obesity
HLD
DM2
Diabetic neuropathy
Psoriasis
L hip replacement 1985
Cardiac catheterization 11/11/2024: LM: Diffuse 50% stenosis with significant pressure damping of about 30 to 40 mmhg upon selective engagement with 5 [place] catheter. LAD: Mid diffuse 70 to 80% stenosis banding across takeoff of 2 diagonal
branches. D2 small caliber with 60 to 70% ostial stenosis. D3 very small caliber with 70 to 80% ostial stenosis. Robust [id number] collaterals. Left circumflex: 70% proximal stenosis at OM1 takeoff. RCA: 100% in-stent chronic total occlusion
with [id number] collaterals.
Echo 07/13/2022: Technically difficult study, Definity used, EF 61%, no gross segmental wall motion abnormalities, mild concentric LVH, no significant valvular pathology within the limits of study
Echo 11/08/2024: Moderately reduced systolic function, global hypokinesis, EF 30-35%, G3 DD, normal RV size and function, mild mean gradient 11 mmHg, trace TR PASP 24 mmHg
Plan:
-Presented with SOB and hypoxia. Admitted with acute heart failure and NSTEMI. ProBNP 9260 on arrival.
-New CM noted on echo 11/08, and underwent cardiac cath 11/11 w/ MV CAD and elevated LVEDP of 32 mmHg.
-Plan is for medical management of coronary disease as he is not a surgical candidate and poor targets for PCI.
-Diuresing with IV lasix 80mg BID. Weight down to 286 lbs 11/13, down 7lbs overnight.
-Creat bumped to 1.5 in AM 11/13.
-Entresto was new 11/12. With bump in creat will hold PM dose of Lasix and Entresto and will reassess in AM.
-Consider eventual SGLT2 inhibitor, however holding off on for now.
-Continue carvedilol and aspirin.
-Continue high intensity statin. LDL 44.
-Known h/o hypercoagulable state, on Coumadin as OP. Bridging w/ heparin currently. INR 1.68 11/13, will stop heparin once INR greater than 2.
-Wean O2 as able, on 2L NC.
Progress Note - Short Goods Drier
Subjective
Date of Service: November 13, 2024
Still w/ some SOB. No change compared to yesterday.
Objective
Labs:
11/13/24 03:00
11/13/24 03:00
Labs
Hgb 11.4 g/dL (13.0-18.0) L 11/13/24 03:00
Hct 35.2 % (39.0-52.0) L 11/13/24 03:00
Plt Count 87 10^3/uL (130-400) L 11/13/24 03:00
PT 20.0 Sec (11.4-14.6) H 11/13/24 03:00
INR 1.68 11/13/24 03:00
APTT 77.1 Sec (23.4-35.0) H 11/13/24 03:00
APTT Cancelled 11/13/24 03:00
Sodium 138 mmol/L (135-145) 11/13/24 03:00
Potassium 3.4 mmol/L (3.5-5.1) L 11/13/24 03:00
BUN 36 mg/dl (9-20) H 11/13/24 03:00
Creatinine 1.5 mg/dL (0.7-1.3) H 11/13/24 03:00
Glucose 189 mg/dl (70-99) H 11/13/24 03:00
Troponins
11/10/24
14:00
Troponin I 0.066 H*
Vital Signs and I&O:
Vital Signs
Temp Pulse Resp BP Pulse Ox
97.7 F 67 16 116/75 99
11/13/24 03:19 11/13/24 07:51 11/13/24 07:51 11/13/24 07:23 11/13/24 07:51
Vital Signs
Temp Pulse Resp BP Pulse Ox
97.7 F 67 16 116/75 99
11/13/24 03:19 11/13/24 07:51 11/13/24 07:51 11/13/24 07:23 11/13/24 07:51
Intake & Output
11/11/24 11/12/24 11/13/24 11/14/24
06:59 06:59 06:59 06:59
Intake Total 360 / 360 240 / 240
Output Total 750 / 750 900 / 900 200 / 200
Balance -390 / -390 -900 / -900 40 / 40
Physical Exam
Physical Exam
GEN: No distress, awake, alert, oriented x3
HEENT: anicteric, mmm
LUNGS: CTA anterolaterally, no wheezes/rales
CV: Reg, S1/S2, no murmur
EXT: L BKA, R AKA noted
NEURO: Gross non-focal
SKIN: Warm, dry, no rash
--- NOTE | 2024-11-13 10:10 | PN.CDI ---
CDI
- -
CDI:
Physician Documentation Request
Admit Date: 11/07/24 21:20
Dear Doctor Ritchie,
Patient admitted for heart failure.
11/12 Cardiology PN: 'Type II NSTEMI due to acute decompensated heart failure new ischemic cardiomyopathy. Heart catheterization with significant multivessel coronary artery disease where heart team discussion was pursued...Abnormal troponin,
suspect nonischemic myocardial injury secondary to acute heart failure exacerbation with no culprit coronary lesion on catheterization'
Please clarify the following regarding the documented troponin elevation:
Type 2 MO
NSTEMI
Non-ischemic myocardial injury
Other
Use of terms such as suspected, likely, concern for, or probable (associated with a specific diagnosis that is being evaluated, monitored, or treated as if it exists) are acceptable and can be coded in the inpatient setting, when documented at the
time of discharge.
Thank you,
Saskia Cintron RN, BSN
CDI Specialist
Available via [place] text
Please use your independent medical judgment in providing your response.
--- NOTE | 2024-11-13 10:26 | PN.CDI ---
CDI
- -
CDI:
Physician Documentation Request
Admit Date: 11/07/24 21:20
Dear Doctor Esteban,
Patient admitted for heart failure.
11/12 Pulmonary PN: 'Acute on suspect chronic hypoxic and hypercapnic respiratory failure. - At baseline serum Bicarb chronically elevated, admission ABG 7.30/64/118, suggestive of chronic nearly compensated hypercapnia.'
11/12 Hospitalist PN: 'Acute hypoxic and hypercapnic respiratory failure due to acute CHF'
Clarify which of the following accurately represents the acuity of the hypoxic and hypercapnic respiratory failure. Possible options might include:
____ Acute on Chronic
____ Acute
____ Other
Use of terms such as suspected, likely, concern for, or probable (associated with a specific diagnosis that is being evaluated, monitored, or treated as if it exists) are acceptable and can be coded in the inpatient setting, when documented at the
time of discharge.
Thank you,
Saskia Cintron RN, BSN
CDI Specialist
Available via [place] text
Please use your independent medical judgment in providing your response.
--- NOTE | 2024-11-13 11:03 | W.PN.PUL3 ---
Today's Communication / Plan
-
- Follow-up chest x-ray
- If serum bicarbonate continues to rise, will consider Diamox on 11/14
- Continue nasal cannula. BiPAP as needed.
Assessment
-
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
worsening shortness of breath and lower extremity edema. Patient was noted to have pleural effusions bilateral along with pulmonary edema and elevated BNP. Echocardiogram showed decreased EF to about 30 to 35%. Patient also noted to have mild
troponin leak. He was medically managed with aspirin, statins, heparin drip and cardiology service was consulted. Patient was taken to Respiratory Practitioner on 11/11. His admission ABG showed chronic hypercapnia with nearly normal pH. On 11/11, in the Cath
Lab, patient was noted to be more short of breath, hypoxic, orthopneic and ABG showed slightly worsening hypercapnia with acidosis. Patient was started on BiPAP. Pulmonary consultation was requested for further input.
Patient has never smoked and does not carry any diagnosis of emphysema COPD or cystic fibrosis. No history of childhood asthma. Patient does report snoring. No prior diagnosis of sleep apnea order sleep study in the past.
#1. Acute on suspect chronic hypoxic and hypercapnic respiratory failure.
- At baseline serum Bicarb chronically elevated, admission ABG 7.30/64/118, suggestive of chronic nearly compensated hypercapnia. Suspect has underlying OHS/GLEN considering hypoxia, elevated Bicarbonate and pCO2> 45.
- 11/11, suspect supine position worsened dyspnea and sedation prior to cath decreased ventilation with resultant worsened hypercapnia and hypoxia. Responded well to BiPAP with improving blood gas. Patient did not wear BiPAP overnight and is
awake, alert this morning on supplemental O2.
- Avoid sedation, avoid supine position
- Patient does not want to pursue sleep study and does not like to use BiPAP mask and wants to stick with nasal cannula for now.
#2. B/L Pleural effusion, Right greater then Left
- s/p Right sided Thoracentesis (11/11), 800 ml fluid removed, LDH 67, protein less than 2.0, suggestive of transudative effusion
- Left side appears to be trace effusion, monitor for now
- Pleural fluid cultures, stain pending
- Suspect effusions are related to underlying pulmonary edema and volume overload with congestive heart failure
- Lower lobe opacities are more suggestive of atelectasis related to pleural effusion rather than active pneumonia. Monitor off antibiotics. Patient is otherwise afebrile and has normal white count.
#3. Suspect OHS/GLEN
- High pretest probability of underlying sleep disordered breathing and possibly obesity hypoventilation syndrome
- Continue O2 support, optimize volume status. Avoid any sedating medication
- Patient does not want to pursue sleep study.
- Ideally should continue BiPAP nightly while patient is hypervolemic, however patient does not want to use it. VBG suggestive of compensated hypercapnia with normal pH. Also developing some contraction metabolic alkalosis reflected by compensated
increase in pCO2.
- Assess for need for home O2 prior to discharge. Once patient is euvolemic, will perform an overnight oximetry testing and monitor off positive airway pressure therapy.
#4. Acute on likely chronic congestive heart failure with reduced ejection fraction, EF 30 to 35%
- Patient still has significant bilateral lower extremity edema and overall appears volume overloaded. Diuretics currently being held due to rising creatinine. If serum bicarb continues to rise, will consider acetazolamide/Diamox in AM.
- Cardiology service on case
#5. NSTEMI
- Patient has been on aspirin, statins, Coreg, heparin infusion. Cardiology service on case.
- Coronary angiogram, 11/11
#6. h/o DVT/PE, protein C deficiency.
- Chronically anticoagulated with Coumadin
- Currently on heparin drip
Other medical diagnoses
- History of coronary artery disease, PCI in 2012
- Severe peripheral vascular disease, status post PCI left lower extremity in 2013, history of BKA on the left, right partial foot amputation.
- Legal blindness
- Obesity
- Hyperlipidemia
- Diabetes
- Diabetes related neuropathy
Total time spent on this consultation/encounter _48__ minutes which includes review of history, physical exam, medications, laboratory data, personal review of imaging, extensive review of outpatient records, discussion with care team and
respiratory therapy.
Data:
CXR 10/2024: No radiographically demonstrable right pleural effusion.
Stable faint opacity at the left lung base. Subtle blunting of the left lateral costophrenic angle. Possible considerations include atelectasis, pneumonia, and/or trace pleural effusion.
ECHO 10/2024: 1. Left ventricle: Normal size with moderately reduced systolic function. The
ventricle is globally hypokinetic with an estimated ejection fraction of 30-35%
by Hightower's method of discs. There is stage III diastolic dysfunction
consistent with restrictive filling and increased filling pressures
2. Right ventricle: Normal
3. Atria: Mild left atrial dilation
4. Mitral valve: Trace mitral regurgitation
5. Aortic valve: Thickened and trileaflet aortic valve. Mild aortic stenosis
with a mean gradient of 11 mmHg. There is no aortic insufficiency
6. Tricuspid valve: Trace tricuspid regurgitation with estimated pulmonary
artery systolic pressures of 24 mmHg
7. When compared to his most recent echocardiogram from 07/13/2022, the LVEF is
now estimated at 30-35%. The LVEF on the prior study was 61%
Subjective Data
-
Date of Service:
Date of Service: November 13, 2024
Subjective:
Feels essentially the same, still has shortness of breath.
Review of Systems
Genitourinary: Other (No new symptoms reported.)
Objective Data
Data Reviewed
Vital Signs / I&O / Oxygen:
Vital Signs
Temp Pulse Resp BP Pulse Ox
97.9 F 67 16 116/75 98
11/13/24 07:05 11/13/24 07:51 11/13/24 07:51 11/13/24 07:23 11/13/24 10:04
Intake and Output
11/12/24 11/13/24 11/14/24
06:59 06:59 06:59
Intake Total 240 / 240
Output Total 900 / 900 200 / 200
Balance -900 / -900 40 / 40
SaO2 98
Nasal Cannula flow liters per 2
minute
Physical Exam
General: Comfortable
HEENT: Normocephalic
Cardiovascular: S1-S2, Regular Rhythm and Peripheral Edema (Unchanged bilateral lower extremity edema from yesterday)
Respiratory: Clear and Non-Labored Respirations
GI: Soft and Non Distended
Neurology: Awake and Alert
Labs/Micro/Reports
Lab Data
11/13/24 03:00
11/13/24 03:00
Laboratory Results
11/12/24 11/12/24 11/13/24
14:28 20:53 03:00
PT 20.0 H
INR 1.68
APTT 73.8 H 110.3 H Cancelled
11/13/24
03:00
PT
INR
APTT 77.1 H
Microbiology
11/11/24 11:35 Pleural Fluid Body Fluid Culture - Preliminary
No Growth After 18-24 Hours
11/11/24 11:35 Pleural Fluid Gram Stain - Preliminary
--- NOTE | 2024-11-13 11:17 | VNURNOTE ---
Home Health Liaison spoke with patient's spouse Arianna to discuss [facility] nurse/therapy, visits, schedule and homebound status. She is agreeable and understands that visits at home will be 2-3 x per week to assess and teach medical management. Spouse is
aware that [facility] will contact them for start of care in 1-2 days after discharge from .
Discussed with spouse that current PT eval showed pt was an assist of 3. Inquired if spouse has any other help at home to assist w/ADLs, ambulation, safety. Arianna stated it's just her at home. She will continue to speak w/patient about how they
will safely manage at home with mobility. She is aware that recs are for SNF. This author offered a list of private CGs/companions for additional support; spouse will think about it and speak to pt.
Spouse cancelled hospital bed w/[facility]. She thinks the bed will be too small. She has arranged a [facility] hospital bed through a family member. She expects it to be delivered tomorrow.
[facility] referral completed in [facility]. Will continue to follow for final DC dispo.
[2024-11-13 11:25] LABS: Magnesium 1.6 mg/dl (1.6-2.3)
--- NOTE | 2024-11-13 12:16 | W.PN.HOSP.TC ---
Today's Communication/Plan
-
holding Lasix/Entresto
Coumadin/Heparin bridging
Rehab planning
Assessment / Plan
Assessment / Plan
Assessment:
Acute on suspected chronic hypoxic and hypercapnic respiratory failure due to acute CHF (Pneumonia was ruled out)
- wean O2 as able
- wean BiPAP
- prn nebs
- pulm following
Acute on chronic HFrEF
- continue IV Lasix - requires intensive monitoring of I/Os, weights, lytes
- Echo: EF now 35% from 60%
- GDMT: Coreg/Entresto
acute R pleural effusion from acute CHF
- s/p thoracentesis 11/11; 800 cc removed.
type 2 NSTEMI
CAD s/p stents 2014
- LHC: severe multivessel coronary artery disease, there is no PCI targets per Cardiology. CT surgery also evaluated and patient felt a poor surgical candidate
- continue medical management: ASA/Statin/BB
Right sided abdominal pain
- CT abdomen pelvis showed: No significant acute process in the abdomen or pelvis. Diverticulosis coli. Cholelithiasis.
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
Supratherapeutic INR
- continue Coumadin f/u INRs and continue IV Heparin until INR>2. IV heparin requires intensive monitoring of PTTs
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
Hx Right partial foot amputation
- PT/OT - SNF rehab
History of diabetes mellitus
- Continue home medication
- Insulin sliding scale
- Diabetic diet
- Hemoglobin A1c 5.6%
- Toujeo 25 units continued
Accelerated essential hypertension
- Blood pressure acceptable
DVT ppx: Heparin drip
Code: Full
Anticipated Discharge: > 48 hours
Subjective/Interval History
-
Date of Service: November 13, 2024
SOB stable on 2L
Objective Data
-
Labs:
Laboratory Results
11/13/24 11/13/24
03:00 03:00
WBC 8.5
Hgb 11.4 L
Hct 35.2 L
Plt Count 87 L
PT 20.0 H
INR 1.68
APTT Cancelled 77.1 H
Sodium 138
Potassium 3.4 L
Chloride 94 L
Carbon Dioxide 37 H
BUN 36 H
Creatinine 1.5 H
Glucose 189 H
Calcium 8.4
Vital Signs:
Vital Signs
Temp Pulse Resp BP Pulse Ox
97.9 F 67 16 116/75 98
11/13/24 07:05 11/13/24 07:51 11/13/24 07:51 11/13/24 07:23 11/13/24 10:04
I&O
11/12/24 11/13/24 11/14/24
06:59 06:59 06:59
Intake Total 240 / 240
Output Total 900 / 900 200 / 200
Balance -900 / -900 40 / 40
Physical Exam
-
General: No Apparent Distress
HEENT: Normocephalic and Atraumatic
Respiratory: Negative Wheezes
Cardiac: Regular Rhythm
GI: Soft and Nontender
Musculoskeletal: Edema, Right Lower Extrem and Edema, Left Lower Extrem
Neuro: AO x 3
Psych: Calm
Data Reviewed
-
Total Time Spent with Patient (in minutes): 44
Labs: Labs Reviewed by me
[2024-11-13 13:26] LABS: Glucose - Point of Care 194 mg/dl (70-99)
--- NOTE | 2024-11-13 15:47 | CM ---
Patient with Hx legally blind, L BKA and R foot amputation with Dx pleural effusion, CHF, NSTEMI. O2 2L. Receiving IV Lasix, Heparin gtt.
PT/OT Evals; max assist of 2 for bed mobility, unable to stand or transfer, recommend skilled rehab.
Spoke with patient's Arianna;
extensive conversation with who is home waiting on hospital bed delivery. expressed concerns about patient's respiratory and cardiac status. She is hoping to speak with Dr Orellana for an update and to ask questions about his meds, current
and future treatment---> message to Dr Orellana.
Discussed patient's participation with PT/OT today. thinks patient is lethargic 'not himself' currently and his fear of falling is affecting his willingness to do PT. says he sort of shuts down when he cannot perceive the room layout due
to his blindness, and when many people are coming into the room. She will talk to the patient again about doing rehab. Offered to coordinate appointment with PT/OT for and she agreed - confirmed with Claudio HOPKINS & Yajaira OT they can meet with
and work with patient at 10am tomorrow.
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 She thinks patient would be more motivated for rehab if he could go to [place] again rather than SNF.
Spoke with Derik Danielle AR; discussed referral - she suggests PM&R Consult---> message to Dr Orellana.
Plan Observe PT/OT Session tomorrow 10am with present.
Plan follow up after seen by Physiatry.
[2024-11-13] MEDS: MAGNESIUM OXIDE 500 MG PO (17:06)
[2024-11-13] MEDS: KCL 20 MEQ PO (17:06)
[2024-11-13] MEDS: LIPITOR 40 MG PO (17:06)
[2024-11-13] MEDS: COUMADIN 2 MG PO (17:08)
[2024-11-13 17:26] LABS: Glucose - Point of Care 192 mg/dl (70-99)
[2024-11-13] MEDS: NOVOLOG FLEXPEN-MODERATE RESISTANCE 1 UNITS SC (17:37)
[2024-11-13 22:10] LABS: Glucose - Point of Care 240 mg/dl (70-99)
[2024-11-13] MEDS: LANTUS 0.2 UNITS SC (22:49)
[2024-11-14] VITALS (14 sets, daily range): BP systolic 91–126; BP diastolic 53–78; PULSE 71–77; O2SAT 94–97; BMI 38.6
[2024-11-14] MEDS: DUONEB 3 ML INH (01:46)
--- NOTE | 2024-11-14 03:43 | PTCARENOTE ---
Pt pulse ox 99% on 2L but pt c/o SOB. Requested breathing Tx from RT. Pt offers no further complaints
[2024-11-14 05:12] LABS: Hematocrit 34.5 % (39.0-52.0); Hemoglobin 11.2 g/dL (13.0-18.0); Mean Corp Hgb Conc. 32.5 g/dL (33.0-37.0); Mean Corpuscular Hgb 27.1 pg (27.0-31.0); Mean Corpuscular Volume 83.5 fL (80.0-94.0); Mean Platelet Volume 12.2 fL (7.4-10.4); Platelet Count 79 10^3/uL (130-400); Red Blood Cell Count 4.13 10^6/uL (4.70-6.10); Red Cell Dist. Width 14.6 % (11.5-14.5); White Blood Cell Count 7.1 10^3/uL (4.8-10.8)
[2024-11-14 05:21] LABS: INR 2.02; PT 23.3 Sec (11.4-14.6)
[2024-11-14 05:58] LABS: Blood Urea Nitrogen 45 mg/dl (9-20); Calcium 8.5 mg/dl (8.4-10.2); Carbon Dioxide 38 mmol/L (22-30); Chloride 95 mmol/L (98-107); Estimated Creatinine Clearance 41 ml/min; Glucose 177 mg/dl (70-99); Sodium 137 mmol/L (135-145); eGFR 28.32
[2024-11-14 06:03] LABS: APTT 139.9 Sec (23.4-35.0)
[2024-11-14 06:28] LABS: Potassium 3.8 mmol/L (3.5-5.1)
--- NOTE | 2024-11-14 07:21 | W.PN.CARDCBS ---
Addendum entered and electronically signed by Bairon Lindo MD 11/14/24 21:54:
Pt had Non STEMI
Addendum entered and electronically signed by Bairon Lindo MD 11/14/24 10:06:
I saw and examined the patient.
The Lamination Builder's note was reviewed and I agree with the note.
Comment:
GEN: No distress, awake, Ox3
HEENT: supple, anicteric, mmm
LUNGS: scatt rhonchi
CV: Reg, S1/S2, /6 syst LSB, S3+
ABD: soft, BS+, NT/ND
EXT: + L BKA
NEURO: Gross non-focal
SKIN: No rash
PLan:
Creatinine up to 2.4. Likely has some level of contrast-induced nephropathy.
Continue to hold Lasix and Entresto. Nephrology consult.
Will continue medical therapy for coronary artery disease. May need to add Imdur however with hypotension we will hold off for now.
He is still likely volume overloaded but hopefully can resume diuretics over the next 24 to 48 hours once creatinine peaks.
Continue aspirin, Coreg, atorvastatin.
INR greater than 2. Okay to stop heparin and continue Coumadin.
Original Note:
Today's Communication / Plan
-
Continue to hold lasix, entresto w/ creat up to 2.4
Follow urine output
Consider addition of Imdur, however hypotension may limit
Continue aspirin, statin
Impression / Plan
-
Treater Helper: None prior to admission, initially seen by Dr. Keating
Assessment:
Presented with SOB 11/07/2024
Acute hypoxic respiratory failure
Acute on chronic HFrEF
Ischemic CM EF 30 to 35%
Hypertensive urgency, improved
Type II NSTEMI
R pleural effusion
s/p thoracentesis for 800 cc 11/11/2024
CAD
s/p BMS to RCA 03/2013 at [place]
MV CAD by cath 11/11/2024
PVD
s/p LLE stenting per patient 2013
LLE gangrene s/p L BKA
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
Left distal SFA, mid SFA, proximal SFA stents x3, left peroneal artery/TP trunk angioplasty 06/2022
h/o clotting disorder, pt believes protein C&S deficiency, on chronic Coumadin
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
Legally blind, secondary to hypercoagulable state, s/p R eye removal 1985
Chronic SOB, secondary to history of L collapsed lung secondary PE and hypercoagulable state
Obesity
HLD
DM2
Diabetic neuropathy
Psoriasis
L hip replacement 1985
Cardiac catheterization 11/11/2024: LM: Diffuse 50% stenosis with significant pressure damping of about 30 to 40 mmhg upon selective engagement with 5 [place] catheter. LAD: Mid diffuse 70 to 80% stenosis banding across takeoff of 2 diagonal
branches. D2 small caliber with 60 to 70% ostial stenosis. D3 very small caliber with 70 to 80% ostial stenosis. Robust [id number] collaterals. Left circumflex: 70% proximal stenosis at OM1 takeoff. RCA: 100% in-stent chronic total occlusion
with [id number] collaterals.
Echo 07/13/2022: Technically difficult study, Definity used, EF 61%, no gross segmental wall motion abnormalities, mild concentric LVH, no significant valvular pathology within the limits of study
Echo 11/08/2024: Moderately reduced systolic function, global hypokinesis, EF 30-35%, G3 DD, normal RV size and function, mild mean gradient 11 mmHg, trace TR PASP 24 mmHg
Plan:
-Presented with SOB and hypoxia. Admitted with acute heart failure and NSTEMI. ProBNP 9260 on arrival.
-New CM noted on echo 11/08, and underwent cardiac cath 11/11 w/ MV CAD and elevated LVEDP of 32 mmHg.
-Plan is for medical management of coronary disease as he is not a surgical candidate and noted to have poor targets for PCI.
-Diuresed w/ IV lasix, however developed BRODERICK and lasix now on hold. Weight was down to 286 lbs on 11/13, now up to 292 on 11/14 w/ holding lasix.
-Creat up to 2.4 11/14 w/ minimal urine output noted by RN overnight.
-Continue to hold lasix and Entresto. If renal function continues to worsen w/ decreased urine output, consider nephrology consult.
-Continue carvedilol and aspirin.
-Still notes ongoing stable chest pressure. No chest pain. Consider addition of Imdur, however hypotension may limit ability to add.
-Continue high intensity statin. LDL 44.
-Known h/o hypercoagulable state, on Coumadin as OP. Bridged w/ heparin, however w/ INR >2 this AM, heparin stopped.
-Wean O2 as able, on 2L NC.
Progress Note - Treater Helper
Subjective
Date of Service: November 14, 2024
Still w/ chest pressure, unchanged. No chest pain.
Objective
Labs:
11/14/24 05:01
11/14/24 05:01
Labs
Hgb 11.2 g/dL (13.0-18.0) L 11/14/24 05:01
Hct 34.5 % (39.0-52.0) L 11/14/24 05:01
Plt Count 79 10^3/uL (130-400) L 11/14/24 05:01
PT 23.3 Sec (11.4-14.6) H 11/14/24 05:01
INR 2.02 11/14/24 05:01
APTT 139.9 Sec (23.4-35.0) H 11/14/24 05:01
Sodium 137 mmol/L (135-145) 11/14/24 05:01
Potassium 3.8 mmol/L (3.5-5.1) 11/14/24 05:01
BUN 45 mg/dl (9-20) H 11/14/24 05:01
Creatinine 2.4 mg/dL (0.7-1.3) H 11/14/24 05:01
Glucose 177 mg/dl (70-99) H 11/14/24 05:01
Vital Signs and I&O:
Vital Signs
Temp Pulse Resp BP Pulse Ox
97.5 F 64 22 109/61 96
11/14/24 03:00 11/14/24 04:00 11/14/24 04:00 11/14/24 04:00 11/14/24 04:00
Vital Signs
Temp Pulse Resp BP Pulse Ox
97.5 F 64 22 109/61 96
11/14/24 03:00 11/14/24 04:00 11/14/24 04:00 11/14/24 04:00 11/14/24 04:00
Intake & Output
11/12/24 11/13/24 11/14/24 11/15/24
06:59 06:59 06:59 06:59
Intake Total 240 / 240 820 / 820
Output Total 900 / 900 200 / 200 150 / 150
Balance -900 / -900 40 / 40 670 / 670
Physical Exam
Physical Exam
GEN: No distress, awake, alert, oriented x3
HEENT: anicteric, mmm
LUNGS: Decreased breath sounds, no wheezes/rales
CV: Reg, S1/S2, no murmur
EXT: L BKA, R AKA noted
NEURO: Gross non-focal
SKIN: Warm, dry, no rash
[2024-11-14 08:00] LABS: Glucose - Point of Care 180 mg/dl (70-99)
[2024-11-14] MEDS: NOVOLOG FLEXPEN-MODERATE RESISTANCE 1 UNITS SC ×2 (08:14→17:24)
[2024-11-14] MEDS: DESENEX/MITRAZOL/ZEASORB 1 APPLIC TOPICAL ×2 (08:15→21:04)
[2024-11-14] MEDS: KCL 20 MEQ PO (08:15)
[2024-11-14] MEDS: MAGNESIUM OXIDE 500 MG PO (08:15)
[2024-11-14] MEDS: LOW STRENGTH ASPIRIN 81 MG PO (08:15)
[2024-11-14] MEDS: COREG 3.125 MG PO ×2 (08:15→21:02)
--- NOTE | 2024-11-14 09:00 | PTCARENOTE ---
Patient received from night time nanny. Patient resting comfortably in bed. AAO, VSS. No events noted overnight. No complaints of pain. Heparin gtt on hold at 1100 units/hr, 11mL/hr, elevated PT. INR >2, cardiology ok with stopping heparin gtt. No
fluids through IV. Qshift neurovascular checks. No BMs noted over past few day, reaching out for bowel regimen. No test scheduled at this time. Call read in reach.
[2024-11-14] MEDS: SENOKOT PO ×3 (10:13→21:05)
--- NOTE | 2024-11-14 10:29 | W.CON.NEPH ---
Consultation
-
Date/Time Consultation Requested: 11/14/2024 10:00 AM
Date/Time Consultation Performed: 11/14/2024 10:30 AM
Requesting Provider: Dr. Orellana
Performing Provider: Dr. Garcia
Reason for Consultation: Acute kidney injury
Medical History
-
Chief Complaint: Acute kidney injury
History of Present Illness:
The patient is a 68-year-old male with a past medical history of dyslipidemia maintained on statin therapy. He also has a history of diabetes and is chronically maintained on insulin therapy. He is chronically maintained on Coumadin due to his
history protein C deficiency with prior history of PE and DVT. He presented to the hospital on November 07, 2024 with increasing shortness of breath. It was determined that he had had new onset of congestive heart failure and he was diuresed.
Echocardiogram was obtained which revealed an EF of 30 to 35% with global hypokinesis. He eventually underwent cardiac catheterization on November 11, 2024. LVEDP at the time was 32. He was noted to have severe multivessel coronary artery disease and
no further interventions were taken. 48 hours post cardiac catheterization his creatinine started to rise to 1.5 and is now up to 2.4 nephrology was consulted for acute kidney injury. The patient has also been intermittently hypotensive over the
past 3 days.
Past Medical History
Type 2 diabetes
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
Neuropathy
Psoriasis
DVT PE
Right lower extremities gangrenous
left BKA
Left hip replacement
right eye removal
cardiac stent/CAD
right lower extremities angiogram with stent of right SFA and popliteal and peroneal artery
Toe amputation
Left BKA
Social History
Tobacco: Non-Smoker
Alcohol: None
Drug: None
Family History
Family History: Not Pertinent
Allergies / Home Medications
Allergy/AdvReac Type Severity Reaction Status Date / Time
pregabalin (From Lyrica) Allergy Unknown Verified 11/07/24 18:25
�Medication �Instructions �Recorded �Confirmed �Type
atorvastatin 10 mg tablet 10 mg PO DAILY High cholesterol 05/23/19 11/07/24 History
aspirin 81 mg chewable tablet 81 mg PO DAILY #0 tabs 07/14/22 11/07/24 Rx
insulin glargine U-300 conc 300 40 unit SC HS Diabetes 03/01/23 11/07/24 History
unit/mL (3 mL) subcutaneous pen
(Toujeo Max U-300 SoloStar)
insulin aspart U-100 100 unit/mL 1 sliding scale dose SC 11/07/24 11/07/24 History
subcutaneous solution (Novolog DIRECTED Diabetes
U-100 Insulin aspart)
warfarin 2 mg tablet 2 mg PO SUMOWEFRSA Blood Clot 11/07/24 11/11/24 History
Prevention/Tx
warfarin 3 mg tablet 3 mg PO TUTH Blood Clot 11/07/24 11/11/24 History
Prevention/Tx
Review of Systems
-
History Source: Patient
All other systems: Negative unless noted
EENT: No Symptoms and Other (right eye extracted)
Respiratory: Trouble Breathing
Cardiac: Chest Pain
Abdomen/GI: Abdominal Pain
: Difficulty Voiding
Physical Exam
Vital Signs
Vital Signs
Temp Pulse Resp BP Pulse Ox
97.8 F 65 22 115/58 98
11/14/24 08:10 11/14/24 08:15 11/14/24 04:00 11/14/24 08:15 11/14/24 08:46
Lab Results
11/14/24 05:01
11/14/24 05:01
WBC 7.1 10^3/uL (4.8-10.8) 11/14/24 05:01
RBC 4.13 10^6/uL (4.70-6.10) L 11/14/24 05:01
Hgb 11.2 g/dL (13.0-18.0) L 11/14/24 05:01
Hct 34.5 % (39.0-52.0) L 11/14/24 05:01
Plt Count 79 10^3/uL (130-400) L 11/14/24 05:01
Sodium 137 mmol/L (135-145) 11/14/24 05:01
Potassium 3.8 mmol/L (3.5-5.1) 11/14/24 05:01
Chloride 95 mmol/L (98-107) L 11/14/24 05:01
Carbon Dioxide 38 mmol/L (22-30) H 11/14/24 05:01
BUN 45 mg/dl (9-20) H 11/14/24 05:01
Creatinine 2.4 mg/dL (0.7-1.3) H 11/14/24 05:01
eGFR 28.32 11/14/24 05:01
Glucose 177 mg/dl (70-99) H 11/14/24 05:01
Calcium 8.5 mg/dl (8.4-10.2) 11/14/24 05:01
Rfb-G-Lrbyegrdyvz Pept 9260 pg/ml 11/07/24 19:19
Albumin 3.7 g/dl (3.5-5.0) 11/07/24 19:19
Physical Exam
General: AOx3, Nontoxic , NAD
HEENT: PERRL, EOMI,right eye extracted, Anicteric, Conjunctivae Clear, Ear/Nose Intact, Hearing Normal, Oropharynx Clear/Moist, Dentition Intact, Facial Symmetry, Neck Supple, Neck: Trachea Midline, No JVD and No Thyromegaly, no Bruits
Respiratory: Coarse to auscultation bilaterally with normal lung exersion
Cardiac: S1/S2 and Regular Rate/Rhythm
Breast: Deferred by me
Abdomen: Soft, Nontender, Nondistended, Normal Bowel Sounds and No Hepatosplenomegaly
Rectal: Deferred by Provider
Genito-urinary: No Costovertebral Tenderness
Extremities: No Clubbing, No Cyanosis and No Edema, left BKA, right foot amputated
Skin: No Rash or open lesions
Neuro: Nonfocal/Grossly Intact, CN II-XII (Intact) and Strength (Musculoskeletal exam 5 out of 5 both upper and lower extremities)
Hematologic/Lymphatic: No Cervical Lymphadenopathy, No Submandibular Lymphadenopathy and No Supraclavicular Lymphadenopathy
Psych: Mood/affect flat Insight/judgement good and Appropriate
Vascular: plus 1 radial pulsed
Data Reviewed
-
Radiology: Report Reviewed by me (Chest x-ray personally reviewed from 11/13/2022)
Labs: Labs Reviewed by me (BMP CBC urinalysis)
Old Records: Reviewed (Reviewed previous labs in old electronic medical record from 03/13/2023 creatinine 0.8)
Assessment/Plan
-
Impression:
BRODERICK
Metabolic Alkalosis
Acute hypoxic respiratory failure on presentation due to new onset of congestive heart
Ischemic CM EF 30 to 35%
HTN
Type II NSTEMI
R pleural effusion
LLE gangrene s/p L BKA
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
Legally blind, secondary to hypercoagulable state, s/p R eye removal 1985
Chronic SOB, secondary to history of L collapsed lung secondary PE and hypercoagulable state
Obesity
HLD
DM2
Diabetic neuropathy
Psoriasis
L hip replacement 1985
Plan:
BRODERICK:
- Likely due to contrast mediated renal failure following cardiac catheterization
- Need accurate I's and O's check postvoid bladder scan to evaluate for obstructive component (2 postvoid bladder scans were with negligible residual this am)
- Diuretics and Entresto held
- Urinalysis had noted underlying proteinuria likely consistent with diabetic nephropathy
- Quantitate underlying proteinuria with urine protein to creatinine ratio to
Metabolic Alkalosis
-Likely has a chronic component as on presentation the patient's bicarb was 32 possibly due to underlying chronic hypercapnia
-Likely exacerbated by diuretic administration
-VBG reviewed: Noted significant hypercapnia with pCO2 at 75 but with serum pH fairly normalized at 7.36
-Thus metabolic alkalosis is likely compensatory
-
--- NOTE | 2024-11-14 10:56 | CM ---
Patient with Hx legally blind, L BKA and R foot amputation with Dx pleural effusion, CHF, NSTEMI. O2 2L. Receiving IV Lasix, Heparin gtt. A/O.
Met with Arianna, who is asking for [facility] to come in and make modifications to patient's prosthetics. Messages with Dr Orellana who ordered [facility] Consult.
PT/OT recommend acute rehab. and CM present to observe PT/OT session. Patient's prosthetics applied and patient able to stand x2 with encouragement.
Plan follow up after seen by Physiatry.
[2024-11-14 12:00] LABS: Glucose - Point of Care 232 mg/dl (70-99)
--- NOTE | 2024-11-14 12:15 | W.PN.PUL3 ---
Today's Communication / Plan
-
- Patient does not want to pursue sleep study or use BIPAP nightly.
- Continue nasal cannula, may use BiPAP on an as-needed basis for shortness of breath
- Pulmonary team will sign off, please call as needed
Assessment
-
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
worsening shortness of breath and lower extremity edema. Patient was noted to have pleural effusions bilateral along with pulmonary edema and elevated BNP. Echocardiogram showed decreased EF to about 30 to 35%. Patient also noted to have mild
troponin leak. He was medically managed with aspirin, statins, heparin drip and cardiology service was consulted. Patient was taken to [facility] on 11/11. His admission ABG showed chronic hypercapnia with nearly normal pH. On 11/11, in the Cath
Lab, patient was noted to be more short of breath, hypoxic, orthopneic and ABG showed slightly worsening hypercapnia with acidosis. Patient was started on BiPAP. Pulmonary consultation was requested for further input.
Patient has never smoked and does not carry any diagnosis of emphysema COPD or cystic fibrosis. No history of childhood asthma. Patient does report snoring. No prior diagnosis of sleep apnea order sleep study in the past.
#1. Acute on suspect chronic hypoxic and hypercapnic respiratory failure.
- At baseline serum Bicarb chronically elevated, admission ABG 7.30/64/118, suggestive of chronic nearly compensated hypercapnia. Suspect has underlying OHS/GLEN considering hypoxia, elevated Bicarbonate and pCO2> 45.
- 11/11, suspect supine position worsened dyspnea and sedation prior to cath decreased ventilation with resultant worsened hypercapnia and hypoxia. Responded well to BiPAP with improving blood gas. Patient did not wear BiPAP overnight and is
awake, alert this morning on supplemental O2.
- Avoid sedation, avoid supine position
- Patient does not want to pursue sleep study and does not like to use BiPAP mask and wants to stick with nasal cannula for now.
#2. B/L Pleural effusion, Right greater then Left
- s/p Right sided Thoracentesis (11/11), 800 ml fluid removed, LDH 67, protein less than 2.0, suggestive of transudative effusion
- Left side appears to be trace effusion, monitor for now
- Pleural fluid cultures and cytology negative.
- Suspect effusions are related to underlying pulmonary edema and volume overload with congestive heart failure
- Lower lobe opacities are more suggestive of atelectasis related to pleural effusion rather than active pneumonia. Monitor off antibiotics. Patient is otherwise afebrile and has normal white count.
#3. Suspect OHS/GLEN
- High pretest probability of underlying sleep disordered breathing and possibly obesity hypoventilation syndrome
- Continue O2 support, optimize volume status. Avoid any sedating medication
- Patient does not want to pursue sleep study.
- Ideally should continue BiPAP nightly while patient is hypervolemic, however patient does not want to use it. VBG suggestive of compensated hypercapnia with normal pH. Also developing some contraction metabolic alkalosis reflected by compensated
increase in pCO2.
- Assess for need for home O2 prior to discharge. Once patient is euvolemic, will perform an overnight oximetry testing and monitor off positive airway pressure therapy.
#4. Acute on likely chronic congestive heart failure with reduced ejection fraction, EF 30 to 35%
- Patient still has significant bilateral lower extremity edema and overall appears volume overloaded. Diuretics currently being held due to rising creatinine.
- Cardiology service on case
#5. NSTEMI
- Patient has been on aspirin, statins, Coreg, heparin infusion. Cardiology service on case.
- Coronary angiogram, 11/11
#6. h/o DVT/PE, protein C deficiency.
- Chronically anticoagulated with Coumadin
- Currently on heparin drip
Other medical diagnoses
- History of coronary artery disease, PCI in 2012
- Severe peripheral vascular disease, status post PCI left lower extremity in 2013, history of BKA on the left, right partial foot amputation.
- Legal blindness
- Obesity
- Hyperlipidemia
- Diabetes
- Diabetes related neuropathy
Total time spent on this consultation/encounter _44__ minutes which includes review of history, physical exam, medications, laboratory data, personal review of imaging, extensive review of outpatient records, discussion with care team and
respiratory therapy.
Data:
CXR 10/2024: No radiographically demonstrable right pleural effusion.
Stable faint opacity at the left lung base. Subtle blunting of the left lateral costophrenic angle. Possible considerations include atelectasis, pneumonia, and/or trace pleural effusion.
ECHO 10/2024: 1. Left ventricle: Normal size with moderately reduced systolic function. The
ventricle is globally hypokinetic with an estimated ejection fraction of 30-35%
by Hightower's method of discs. There is stage III diastolic dysfunction
consistent with restrictive filling and increased filling pressures
2. Right ventricle: Normal
3. Atria: Mild left atrial dilation
4. Mitral valve: Trace mitral regurgitation
5. Aortic valve: Thickened and trileaflet aortic valve. Mild aortic stenosis
with a mean gradient of 11 mmHg. There is no aortic insufficiency
6. Tricuspid valve: Trace tricuspid regurgitation with estimated pulmonary
artery systolic pressures of 24 mmHg
7. When compared to his most recent echocardiogram from 07/13/2022, the LVEF is
now estimated at 30-35%. The LVEF on the prior study was 61%
Subjective Data
-
Date of Service:
Date of Service: November 14, 2024
Subjective:
Patient saturating well on supplemental oxygen, not in any respiratory distress. Does not report any significant change in symptoms over the last 24 hours
Review of Systems
Genitourinary: Other (No new symptoms reported.)
Objective Data
Data Reviewed
Vital Signs / I&O / Oxygen:
Vital Signs
Temp Pulse Resp BP Pulse Ox
98 F 65 22 115/58 98
11/14/24 11:08 11/14/24 08:15 11/14/24 04:00 11/14/24 08:15 11/14/24 08:46
Intake and Output
11/13/24 11/14/24 11/15/24
06:59 06:59 06:59
Intake Total 240 / 240 820 / 820 240 / 240
Output Total 200 / 200 150 / 150
Balance 40 / 40 670 / 670 240 / 240
SaO2 98
Nasal Cannula flow liters per 2
minute
Physical Exam
General: Comfortable
HEENT: Normocephalic
Cardiovascular: S1-S2, Regular Rhythm and Peripheral Edema (Unchanged bilateral lower extremity edema from yesterday)
Respiratory: Clear and Non-Labored Respirations
GI: Soft and Non Distended
Neurology: Awake and Alert
Labs/Micro/Reports
Lab Data
11/14/24 05:01
11/14/24 05:01
Laboratory Results
11/14/24
05:01
PT 23.3 H
INR 2.02
APTT 139.9 H
Microbiology
11/11/24 11:35 Pleural Fluid Body Fluid Culture - Final
No Growth After 72 Hours
11/11/24 11:35 Pleural Fluid Gram Stain - Final
[2024-11-14] MEDS: NOVOLOG FLEXPEN-MODERATE RESISTANCE 3 UNITS SC (13:05)
--- NOTE | 2024-11-14 13:56 | W.PN.HOSP.TC ---
Today's Communication/Plan
-
monitor labs
Assessment / Plan
Assessment / Plan
Assessment:
Acute on suspected chronic hypoxic and hypercapnic respiratory failure due to acute CHF (Pneumonia was ruled out)
- wean O2 as able
- wean BiPAP
- prn nebs
- pulm following
Acute on chronic HFrEF
- continue IV Lasix - requires intensive monitoring of I/Os, weights, lytes
- Echo: EF now 35% from 60%
- GDMT: Coreg/Entresto
BRODERICK
Metabolic alkalosis
- likely KENNY
- Cr 2.4
- Nephrology consult
- monitor I/Os, bladder scans
acute R pleural effusion from acute CHF
- s/p thoracentesis 11/11; 800 cc removed.
type 2 NSTEMI
CAD s/p stents 2014
- LHC: severe multivessel coronary artery disease, there is no PCI targets per Cardiology. CT surgery also evaluated and patient felt a poor surgical candidate
- continue medical management: ASA/Statin/BB
Right sided abdominal pain
- CT abdomen pelvis showed: No significant acute process in the abdomen or pelvis. Diverticulosis coli. Cholelithiasis.
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
Supratherapeutic INR
- continue Coumadin f/u INRs
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
Hx Right partial foot amputation
- PT/OT - SNF rehab
History of diabetes mellitus
- Continue home medication
- Insulin sliding scale
- Diabetic diet
- Hemoglobin A1c 5.6%
- Toujeo 25 units continued
Accelerated essential hypertension
- Blood pressure acceptable
DVT ppx: Coumadin
Code: Full
Anticipated Discharge: > 48 hours
Subjective/Interval History
-
Date of Service: November 14, 2024
Cr 2.4
weight slightly up
breathing slightly improved
Objective Data
-
Labs:
Laboratory Results
11/14/24
05:01
WBC 7.1
Hgb 11.2 L
Hct 34.5 L
Plt Count 79 L
PT 23.3 H
INR 2.02
APTT 139.9 H
Sodium 137
Potassium 3.8
Chloride 95 L
Carbon Dioxide 38 H
BUN 45 H
Creatinine 2.4 H
Glucose 177 H
Calcium 8.5
Vital Signs:
Vital Signs
Temp Pulse Resp BP Pulse Ox
98 F 65 22 115/58 98
11/14/24 11:08 11/14/24 08:15 11/14/24 04:00 11/14/24 08:15 11/14/24 08:46
I&O
11/13/24 11/14/24 11/15/24
06:59 06:59 06:59
Intake Total 240 / 240 820 / 820 240 / 240
Output Total 200 / 200 150 / 150
Balance 40 / 40 670 / 670 240 / 240
Physical Exam
-
General: No Apparent Distress and Appears Chronically Ill
HEENT: Normocephalic
Respiratory: Negative Wheezes
Cardiac: Regular Rhythm and S1/S2
GI: Soft
Genito-urinary: No Costovertebral Tender
Neuro: AO x 3
Psych: Calm
Data Reviewed
-
Total Time Spent with Patient (in minutes): 47
Labs: Labs Reviewed by me
--- NOTE | 2024-11-14 14:36 | PN.CDI ---
CDI
- -
CDI:
Physician Documentation Request
Admit Date: 11/07/24 21:20
Dear Doctor Esteban,
11/13 Potassium level: 3.4
11/13 Potassium chloride 20 meq PO administered
Based on the above, could you clarify in the progress notes, the appropriate diagnosis, if significant, that supports the above abnormalities and additional evaluation, monitoring and/or treatment rendered:
Hypokalemia
Abnormal lab value insignificant
Other
Use of terms such as suspected, likely, concern for, or probable (associated with a specific diagnosis that is being evaluated, monitored, or treated as if it exists) are acceptable and can be coded in the inpatient setting, when documented at the
time of discharge.
Thank you,
Saskia Cintron RN, BSN
CDI Specialist
Available via [facility] text
Please use your independent medical judgment in providing your response.
[2024-11-14 16:48] LABS: Glucose - Point of Care 181 mg/dl (70-99)
[2024-11-14] MEDS: LIPITOR 40 MG PO (17:25)
[2024-11-14] MEDS: COUMADIN 3 MG PO (17:25)
[2024-11-14 20:56] LABS: Glucose - Point of Care 259 mg/dl (70-99)
[2024-11-14] MEDS: LANTUS 0.2 UNITS SC (21:13)
--- NOTE | 2024-11-14 21:15 | PTCARENOTE ---
Received patient AAOx3, following commands, reporting soreness in right wrist cath site. Flat affect, withdrawn, legally blind in the left eye and right eye remains closed. Family at bedside. NS 60s-70s, normothermic, BP 100s/60s. +1 b/l LE edema,
weak left popliteal pulse and weak right pedal pulse. On 2 liters nasal cannula, saturating 96%, lung sounds diminished throughout with crackles in the bases. POLANCO, shallow, orthopneic. Last BM today. Patient occasionally incontinent of urine, tries
to use urinal. No toes on right foot, left BKA, psoriasis throughout body. Left PIV and right midline patent, WNL. Repositioned, call read within reach.
[2024-11-15] VITALS (15 sets, daily range): BP systolic 113–138; BP diastolic 44–97; BMI 37.9
[2024-11-15 04:51] LABS: Hematocrit 35.6 % (39.0-52.0); Hemoglobin 11.2 g/dL (13.0-18.0); Mean Corp Hgb Conc. 31.5 g/dL (33.0-37.0); Mean Corpuscular Volume 85.8 fL (80.0-94.0); Mean Platelet Volume 12.7 fL (7.4-10.4); Platelet Count 71 10^3/uL (130-400); Red Blood Cell Count 4.15 10^6/uL (4.70-6.10); Red Cell Dist. Width 14.6 % (11.5-14.5); White Blood Cell Count 8.2 10^3/uL (4.8-10.8)
[2024-11-15 05:07] LABS: Blood Urea Nitrogen 50 mg/dl (9-20); Calcium 8.5 mg/dl (8.4-10.2); Carbon Dioxide 37 mmol/L (22-30); Chloride 95 mmol/L (98-107); Estimated Creatinine Clearance 37 ml/min; Glucose 185 mg/dl (70-99); Potassium 3.8 mmol/L (3.5-5.1); Sodium 136 mmol/L (135-145); eGFR 25.72
[2024-11-15 08:05] LABS: Glucose - Point of Care 182 mg/dl (70-99)
[2024-11-15] MEDS: NOVOLOG FLEXPEN-MODERATE RESISTANCE 1 UNITS SC ×2 (08:21→18:00)
[2024-11-15] MEDS: COREG 3.125 MG PO ×2 (08:23→19:56)
[2024-11-15] MEDS: KCL 20 MEQ PO (08:23)
[2024-11-15] MEDS: MAGNESIUM OXIDE 500 MG PO (08:23)
[2024-11-15] MEDS: SENOKOT 8.6 MG PO (08:24)
[2024-11-15] MEDS: DESENEX/MITRAZOL/ZEASORB 1 APPLIC TOPICAL ×2 (08:24→19:56)
[2024-11-15] MEDS: LOW STRENGTH ASPIRIN 81 MG PO (08:24)
--- NOTE | 2024-11-15 09:11 | W.PN.CARDCBS ---
Addendum entered and electronically signed by Tomasz Keating MD 11/15/24 10:21:
I saw and examined the patient.
The NUCLEAR PHYSICS TEACHER or PA's note was reviewed and I agree with the note.
Comment: General: Well developed, well nourished in NAD.
Neck: Supple, no JVD, HJR, carotids +2 B/L, no bruits bilaterally.
Heart: Non displaced PMI, RRR, no murmurs, No S3, S4, no rubs.
Lungs: Scattered rhonchi
Extremities: No clubbing, cyanosis or edema bilaterally.
Neuro: Grossly nonfocal, awake, alert and oriented x3.
[facility] to be volume overloaded but Lasix and Entresto on hold due to renal insufficiency which continues to worsen slightly
Original Note:
Today's Communication / Plan
-
Continue to hold lasix, entresto
Continue coreg, aspirin, lipitor
Impression / Plan
-
Senior Pricing Analyst: None prior to admission, initially seen by Dr. Keating
Assessment:
Presented with SOB 11/07/2024
Acute hypoxic respiratory failure
Acute on chronic HFrEF
Ischemic CM EF 30 to 35%
Hypertensive urgency, improved
NSTEMI
R pleural effusion
s/p thoracentesis for 800 cc 11/11/2024
CAD
s/p BMS to RCA 03/2013 at [facility]
MV CAD by cath 11/11/2024
PVD
s/p LLE stenting per patient 2013
LLE gangrene s/p L BKA
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
Left distal SFA, mid SFA, proximal SFA stents x3, left peroneal artery/TP trunk angioplasty 06/2022
h/o clotting disorder, pt believes protein C&S deficiency, on chronic Coumadin
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
Legally blind, secondary to hypercoagulable state, s/p R eye removal 1985
Chronic SOB, secondary to history of L collapsed lung secondary PE and hypercoagulable state
Obesity
HLD
DM2
Diabetic neuropathy
Psoriasis
L hip replacement 1985
Cardiac catheterization 11/11/2024: LM: Diffuse 50% stenosis with significant pressure damping of about 30 to 40 mmhg upon selective engagement with 5 [place] catheter. LAD: Mid diffuse 70 to 80% stenosis banding across takeoff of 2 diagonal
branches. D2 small caliber with 60 to 70% ostial stenosis. D3 very small caliber with 70 to 80% ostial stenosis. Robust [id number] collaterals. Left circumflex: 70% proximal stenosis at OM1 takeoff. RCA: 100% in-stent chronic total occlusion
with [id number] collaterals.
Echo 07/13/2022: Technically difficult study, Definity used, EF 61%, no gross segmental wall motion abnormalities, mild concentric LVH, no significant valvular pathology within the limits of study
Echo 11/08/2024: Moderately reduced systolic function, global hypokinesis, EF 30-35%, G3 DD, normal RV size and function, mild mean gradient 11 mmHg, trace TR PASP 24 mmHg
Plan:
-Presented with SOB and hypoxia. Admitted with acute heart failure and NSTEMI. ProBNP 9260 on arrival.
-EF newly reduced at 30-35% by echo 11/08, underwent cardiac cath 11/11 w/ MV CAD and elevated LVEDP of 32 mmHg.
-Continue medical management of CAD. Not felt to be surgical candidate and poor PCI targets.
-Diuresed earlier in admission w/ IV lasix, however developed BRODERICK post-cath. Creat up to 2.6 11/15.
-Lasix and Entresto remain on hold. Nephrology following.
-Weight overall stable at 287 lbs.
-Continue coreg, aspirin. Notes no further chest pain this AM. If recurrent CP noted or if renal function does not improve, could consider addition of nitrates/hydralazine.
-Continue high intensity statin. LDL 44.
-Known h/o hypercoagulable state, on Coumadin as OP. INR 2.5 11/15.
-Wean O2 as able, on 2L NC.
Progress Note - Senior Pricing Analyst
Subjective
Date of Service: November 15, 2024
No CP this AM. Still w/ SOB
Objective
Labs:
11/15/24 04:23
11/15/24 04:23
Labs
Hgb 11.2 g/dL (13.0-18.0) L 11/15/24 04:23
Hct 35.6 % (39.0-52.0) L 11/15/24 04:23
Plt Count 71 10^3/uL (130-400) L 11/15/24 04:23
PT 27.0 Sec (11.4-14.6) H 11/15/24 04:23
INR 2.50 11/15/24 04:23
APTT 139.9 Sec (23.4-35.0) H 11/14/24 05:01
Sodium 136 mmol/L (135-145) 11/15/24 04:23
Potassium 3.8 mmol/L (3.5-5.1) 11/15/24 04:23
BUN 50 mg/dl (9-20) H 11/15/24 04:23
Creatinine 2.6 mg/dL (0.7-1.3) H 11/15/24 04:23
Glucose 185 mg/dl (70-99) H 11/15/24 04:23
Vital Signs and I&O:
Vital Signs
Temp Pulse Resp BP Pulse Ox
97.9 F 68 19 123/71 100
11/15/24 07:51 11/15/24 08:23 11/15/24 07:51 11/15/24 08:23 11/15/24 06:00
Vital Signs
Temp Pulse Resp BP Pulse Ox
97.9 F 68 19 123/71 100
11/15/24 07:51 11/15/24 08:23 11/15/24 07:51 11/15/24 08:23 11/15/24 06:00
Intake & Output
11/13/24 11/14/24 11/15/24 11/16/24
06:59 06:59 06:59 06:59
Intake Total 240 / 240 820 / 820 240 / 240
Output Total 200 / 200 150 / 150 70 / 70
Balance 40 / 40 670 / 670 170 / 170
Physical Exam
Physical Exam
GEN: No distress, awake, alert, oriented x3
HEENT: anicteric, mmm
LUNGS: Decreased breath sounds, no wheezes/rales
CV: Reg, S1/S2, no murmur
EXT: L BKA, R AKA noted
NEURO: Gross non-focal
SKIN: Warm, dry, no rash
[2024-11-15 12:02] LABS: Urine Protein 103 mg/dl
--- NOTE | 2024-11-15 12:38 | W.PN.NEPH.PH ---
Today's Communication / Plan
-
cont to hold diuresis and check labs in am
Assessment/Plan
-
Impression:
BRODERICK
Metabolic Alkalosis
Acute hypoxic respiratory failure on presentation due to new onset of congestive heart
Ischemic CM EF 30 to 35%
HTN
Type II NSTEMI
R pleural effusion
LLE gangrene s/p L BKA
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
Legally blind, secondary to hypercoagulable state, s/p R eye removal 1985
Chronic SOB, secondary to history of L collapsed lung secondary PE and hypercoagulable state
Obesity
HLD
DM2
Diabetic neuropathy
Psoriasis
L hip replacement 1985
Plan:
BRODERICK: cr cont to rise 2.6
- Likely due to contrast mediated renal failure following cardiac catheterization 11/11 and hypotension on 11/13
- UOP note measured, pt thinks urinating less , postvoid bladder scans were with negligible residual this am
- Diuretics and Entresto held
- Urinalysis had noted underlying proteinuria likely consistent with diabetic nephropathy
- Quantitate underlying proteinuria with urine protein to creatinine ratio
reviewed with pt about high risk of HD should his renal function cont to worse
Metabolic Alkalosis
-Likely has a chronic component as on presentation the patient's bicarb was 32 possibly due to underlying chronic hypercapnia
with holding diuretics
stable resp status
labs in am
plt decreasing-monitor
-
-
Date of Service: November 15, 2024
CC / HPI / ROS
-
Chief Complaint:
BRODERICK
History of Present Illness:
cr increasing to 2.6, UOP not measured, k normal
BP stable
on 1lit of O2
plt low 71k
Review of Systems:
chest pressure no change
no sob at rest
reports UOP decreased from baseline , incontinent
Labs
-
Labs:
WBC 8.2 10^3/uL (4.8-10.8) 11/15/24 04:23
RBC 4.15 10^6/uL (4.70-6.10) L 11/15/24 04:23
Hgb 11.2 g/dL (13.0-18.0) L 11/15/24 04:23
Hct 35.6 % (39.0-52.0) L 11/15/24 04:23
Plt Count 71 10^3/uL (130-400) L 11/15/24 04:23
Sodium 136 mmol/L (135-145) 11/15/24 04:23
Potassium 3.8 mmol/L (3.5-5.1) 11/15/24 04:23
Chloride 95 mmol/L (98-107) L 11/15/24 04:23
Carbon Dioxide 37 mmol/L (22-30) H 11/15/24 04:23
BUN 50 mg/dl (9-20) H 11/15/24 04:23
Creatinine 2.6 mg/dL (0.7-1.3) H 11/15/24 04:23
eGFR 25.72 11/15/24 04:23
Glucose 185 mg/dl (70-99) H 11/15/24 04:23
Calcium 8.5 mg/dl (8.4-10.2) 11/15/24 04:23
Avb-Z-Oqrwoupzevp Pept 9260 pg/ml 11/07/24 19:19
Albumin 3.7 g/dl (3.5-5.0) 11/07/24 19:19
Physical Exam
-
Vital Signs:
Vital Signs
Temp Pulse Resp BP Pulse Ox
97.6 F 68 19 123/71 98
11/15/24 12:18 11/15/24 08:23 11/15/24 07:51 11/15/24 08:23 11/15/24 11:41
Cardiovascular:: Regular rate and rhythm
Respiratory:: Bilateral: CTA (decreased)
Lung Excursion:: Normal
Abdomen:: Nontender and Soft
Extremity Edema:: +1: Bilateral:
Rowley Catheter: No
Other Findings::
left BKA and right TMA stump
[2024-11-15 13:10] LABS: Glucose - Point of Care 220 mg/dl (70-99)
[2024-11-15 13:12] LABS: Protein/creatinine Ratio 0.3
[2024-11-15] MEDS: NOVOLOG FLEXPEN-MODERATE RESISTANCE 3 UNITS SC (13:26)
--- NOTE | 2024-11-15 13:33 | W.PN.HOSP.TC ---
Today's Communication/Plan
-
monitor labs, urine output
follow cards/renal recs
Assessment / Plan
Assessment / Plan
Assessment:
Acute on suspected chronic hypoxic and hypercapnic respiratory failure due to acute CHF (Pneumonia was ruled out)
- wean O2 as able
- wean BiPAP
- prn nebs
- pulm following
Acute on chronic HFrEF
- holding IV Lasix for BRODERICK
- Echo: EF now 35% from 60%
- GDMT: Coreg/Entresto
BRODERICK
Metabolic alkalosis
- likely KENNY
- Cr 2.6
- Nephrology following
- remains off nephrotoxins
- monitor I/Os, bladder scans
acute R pleural effusion from acute CHF
- s/p thoracentesis 11/11; 800 cc removed.
type 2 NSTEMI
CAD s/p stents 2014
- LHC: severe multivessel coronary artery disease, there is no PCI targets per Cardiology. CT surgery also evaluated and patient felt a poor surgical candidate
- continue medical management: ASA/Statin/BB
Right sided abdominal pain
- CT abdomen pelvis showed: No significant acute process in the abdomen or pelvis. Diverticulosis coli. Cholelithiasis.
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
Supratherapeutic INR
- continue Coumadin, reduce to 1mg daily. f/u INRs
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
Hx Right partial foot amputation
- PT/OT - SNF rehab
History of diabetes mellitus
- Continue home medication
- Insulin sliding scale
- Diabetic diet
- Hemoglobin A1c 5.6%
- Toujeo 25 units continued
Accelerated essential hypertension
- Blood pressure acceptable
Hypokalemia - replete prn
DVT ppx: Coumadin
Code: Full
Anticipated Discharge: > 48 hours
Subjective/Interval History
-
Date of Service: November 15, 2024
off O2, resting comfortably
lowering urine output, Cr 2.6
Objective Data
-
Labs:
Laboratory Results
11/15/24
04:23
WBC 8.2
Hgb 11.2 L
Hct 35.6 L
Plt Count 71 L
PT 27.0 H
INR 2.50
Sodium 136
Potassium 3.8
Chloride 95 L
Carbon Dioxide 37 H
BUN 50 H
Creatinine 2.6 H
Glucose 185 H
Calcium 8.5
Vital Signs:
Vital Signs
Temp Pulse Resp BP Pulse Ox
97.6 F 72 22 126/79 98
11/15/24 12:18 11/15/24 12:00 11/15/24 12:00 11/15/24 12:00 11/15/24 11:41
I&O
11/14/24 11/15/24 11/16/24
06:59 06:59 06:59
Intake Total 820 / 820 240 / 240 120 / 120
Output Total 150 / 150 70 / 70 30 / 30
Balance 670 / 670 170 / 170 90 / 90
Physical Exam
-
General: No Apparent Distress and Appears Chronically Ill
HEENT: Normocephalic and Atraumatic
Respiratory: Negative Wheezes
Cardiac: Regular Rhythm and S1/S2
GI: Soft
Genito-urinary: No Costovertebral Tender
Neuro: AO x 3
Psych: Calm
Data Reviewed
-
Total Time Spent with Patient (in minutes): 45
Labs: Labs Reviewed by me
--- NOTE | 2024-11-15 13:37 | PTCARENOTE ---
Patient is making small amounts of urine today, clear cortes in color in the urinal. Post void residual minimal. Discussed with Dr. Jones, urine labs sent.
--- NOTE | 2024-11-15 15:33 | PTCARENOTE ---
Patient right radial site s/p cath is tender to touch. Notified Myrna TAFOYA and patient was examined at bedside. Dressing removed.
[2024-11-15 15:47] LABS: Urine Albumin 3+ (Neg - Trace); Urine Bilirubin Negative (Negative); Urine Character Clear (Clear); Urine Color Yellow; Urine Glucose Negative (Negative); Urine Ketone Negative (Negative); Urine Leukocyte 1+ (Negative); Urine Nitrite Negative (Negative); Urine Occult Blood 3+ (Negative); Urine Specific Gravity 1.025 (<1.030); Urine Urobilinogen 1+ (Neg - 1+)
[2024-11-15 16:11] LABS: Urine Amorphous Seen; Urine Bacteria Few (Negative); Urine Squamous Cell 0-2 /LPF (Few)
[2024-11-15 16:32] LABS: Protein/creatinine Ratio 0.3; Urine Protein 75 mg/dl; Urine Sodium 34 mmol/L (30-90)
[2024-11-15 17:34] LABS: Glucose - Point of Care 185 mg/dl (70-99)
[2024-11-15] MEDS: LIPITOR 40 MG PO (17:59)
[2024-11-15] MEDS: COUMADIN 1 MG PO (17:59)
[2024-11-15] MEDS: DUONEB 3 ML INH (19:35)
[2024-11-15] MEDS: SENOKOT PO (19:57)
[2024-11-15 21:23] LABS: Glucose - Point of Care 244 mg/dl (70-99)
[2024-11-15] MEDS: LANTUS 0.32 UNITS SC (21:49)
--- NOTE | 2024-11-15 22:14 | PTCARENOTE ---
Pt received resting in bed. at bedside. Pt denies any pain or discomfort. POX RA 95% Does desat into the low 80's intermittently. Placed on 2L NC. pox 94%. VSS. Afebrile. SR/PAC/PVC on CM. Right radial + pulse. No dressing in place. Right groin
dressing c/d/i. +2 RLE edema, +1 LLE edema. Foam wedge in place under left stump. [address] under right lower extremity. Rhonchi to bases. POLANCO. Rest of assessment as documented. Maintained on Q2hr turns. Call read remains within reach. Will
continue to monitor.
[2024-11-16] VITALS (15 sets, daily range): BP systolic 111–144; BP diastolic 61–95; PULSE 68; O2SAT 99; BMI 37.9
[2024-11-16 03:58] LABS: INR 2.99; PT 30.9 Sec (11.4-14.6)
[2024-11-16 04:08] LABS: Blood Urea Nitrogen 55 mg/dl (9-20); Calcium 8.9 mg/dl (8.4-10.2); Carbon Dioxide 37 mmol/L (22-30); Chloride 96 mmol/L (98-107); Estimated Creatinine Clearance 46 ml/min; Glucose 178 mg/dl (70-99); Potassium 4.1 mmol/L (3.5-5.1); Sodium 136 mmol/L (135-145); eGFR 33.24
[2024-11-16 04:13] LABS: Hematocrit 34.6 % (39.0-52.0); Hemoglobin 11.4 g/dL (13.0-18.0); Mean Corp Hgb Conc. 32.9 g/dL (33.0-37.0); Mean Corpuscular Hgb 27.8 pg (27.0-31.0); Mean Corpuscular Volume 84.4 fL (80.0-94.0); Mean Platelet Volume 12.5 fL (7.4-10.4); Platelet Count 69 10^3/uL (130-400); Red Cell Dist. Width 14.6 % (11.5-14.5); White Blood Cell Count 7.1 10^3/uL (4.8-10.8)
[2024-11-16 07:35] LABS: Glucose - Point of Care 167 mg/dl (70-99)
[2024-11-16 07:58] LABS: Glucose - Point of Care 167 mg/dl (70-99)
[2024-11-16] MEDS: MAGNESIUM OXIDE 500 MG PO (08:14)
[2024-11-16] MEDS: COREG 3.125 MG PO ×2 (08:14→19:34)
[2024-11-16] MEDS: DESENEX/MITRAZOL/ZEASORB 1 APPLIC TOPICAL ×2 (08:14→19:35)
[2024-11-16] MEDS: LOW STRENGTH ASPIRIN 81 MG PO (08:14)
[2024-11-16] MEDS: SENOKOT PO ×3 (08:14→19:35)
[2024-11-16] MEDS: NOVOLOG FLEXPEN-MODERATE RESISTANCE 300 UNITS SC (08:15)
--- NOTE | 2024-11-16 08:29 | W.PN.CARDCBS ---
Today's Communication / Plan
-
Please resume warfarin
I added Imdur
Medical management of CAD would be a high risk operative candidate
Creatinine is improving
Likely can resume oral Lasix on November 16
Will follow with you
Impression / Plan
-
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
Assessment:
Presented with SOB 11/07/2024
Acute hypoxic respiratory failure
Acute on chronic HFrEF
Ischemic CM EF 30 to 35%
Hypertensive urgency, improved
NSTEMI
R pleural effusion
s/p thoracentesis for 800 cc 11/11/2024
CAD
s/p BMS to RCA 03/2013 at [place]
MV CAD by cath 11/11/2024
PVD
s/p LLE stenting per patient 2013
LLE gangrene s/p L BKA
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
Left distal SFA, mid SFA, proximal SFA stents x3, left peroneal artery/TP trunk angioplasty 06/2022
h/o clotting disorder, pt believes protein C&S deficiency, on chronic Coumadin
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
Legally blind, secondary to hypercoagulable state, s/p R eye removal 1985
Chronic SOB, secondary to history of L collapsed lung secondary PE and hypercoagulable state
Obesity
HLD
DM2
Diabetic neuropathy
Psoriasis
L hip replacement 1985
Cardiac catheterization 11/11/2024: LM: Diffuse 50% stenosis with significant pressure damping of about 30 to 40 mmhg upon selective engagement with 5 Syriac catheter. LAD: Mid diffuse 70 to 80% stenosis banding across takeoff of 2 diagonal
branches. D2 small caliber with 60 to 70% ostial stenosis. D3 very small caliber with 70 to 80% ostial stenosis. Robust [id number] collaterals. Left circumflex: 70% proximal stenosis at OM1 takeoff. RCA: 100% in-stent chronic total occlusion
with [id number] collaterals.
Echo 07/13/2022: Technically difficult study, Definity used, EF 61%, no gross segmental wall motion abnormalities, mild concentric LVH, no significant valvular pathology within the limits of study
Echo 11/08/2024: Moderately reduced systolic function, global hypokinesis, EF 30-35%, G3 DD, normal RV size and function, mild mean gradient 11 mmHg, trace TR PASP 24 mmHg
Plan:
-Presented with SOB and hypoxia. Admitted with acute heart failure and NSTEMI. ProBNP 9260 on arrival.
-EF newly reduced at 30-35% by echo 11/08, underwent cardiac cath 11/11 w/ MV CAD and elevated LVEDP of 32 mmHg and left main disease.
-Continue medical management of CAD. Not felt to be surgical candidate and poor PCI targets-Case was reviewed by CT surgery
-Diuresed earlier in admission w/ IV lasix, however developed BRODERICK post-cath. Creat up to 2.6 11/15. Creatinine is now 2.1 on 11/16, I would resume at least oral Lasix on 11/17 if creatinine continues to improve
-Lasix and Entresto remain on hold. Nephrology following.
-Weight overall stable at 287 lbs.
-Continue coreg, aspirin. Notes no further chest pain this AM. As needed hydralazine is noted and I ordered Imdur as another antianginal
-Continue high intensity statin. LDL 44.
-Known h/o hypercoagulable state, on Coumadin as OP. INR 2.5 11/15. Please resume warfarin to goal INR 2-3
-Wean O2 as able, on 2L NC. We will follow with you
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
Subjective
Date of Service: November 16, 2024
Some dyspnea/ chest heaviness this morning
Objective
Labs:
11/16/24 03:22
11/16/24 03:22
Labs
Hgb 11.4 g/dL (13.0-18.0) L 11/16/24 03:22
Hct 34.6 % (39.0-52.0) L 11/16/24 03:22
Plt Count 69 10^3/uL (130-400) L 11/16/24 03:22
PT 30.9 Sec (11.4-14.6) H 11/16/24 03:22
INR 2.99 11/16/24 03:22
APTT 139.9 Sec (23.4-35.0) H 11/14/24 05:01
Sodium 136 mmol/L (135-145) 11/16/24 03:22
Potassium 4.1 mmol/L (3.5-5.1) 11/16/24 03:22
BUN 55 mg/dl (9-20) H 11/16/24 03:22
Creatinine 2.1 mg/dL (0.7-1.3) H 11/16/24 03:22
Glucose 178 mg/dl (70-99) H 11/16/24 03:22
Vital Signs and I&O:
Vital Signs
Temp Pulse Resp BP Pulse Ox
97.5 F 65 24 132/82 97
11/16/24 03:47 11/16/24 08:14 11/16/24 06:00 11/16/24 08:14 11/16/24 06:00
Vital Signs
Temp Pulse Resp BP Pulse Ox
97.5 F 65 24 132/82 97
11/16/24 03:47 11/16/24 08:14 11/16/24 06:00 11/16/24 08:14 11/16/24 06:00
Intake & Output
11/14/24 11/15/24 11/16/24 11/17/24
06:59 06:59 06:59 06:59
Intake Total 820 / 820 240 / 240 240 / 240
Output Total 150 / 150 70 / 70 160 / 160
Balance 670 / 670 170 / 170 80 / 80
Physical Exam
Physical Exam
����Physical Exam
���������������������General:��no apparent distress, not acutely ill
���������������������������Neck:��supple. no meningeal signs. normal psoterior pharynx
������������������������
���������������������������Heart:��s1/s2 regular rate and rhythm, no murmur. equal radial pulses.
��������������������������Lungs: ��no acute respiratory distress. clear bilaterally
����������������������Abdomen:�normal bowel sounds. not tender. no CVAT
��������������������������Neuro:��alert and oriented. no focal neurological deficits
������������������������������Skin: ��no rash
�����������������������Psychiatric:�well kept. interactive and cooperative
�����������������������Extremities:��no edema. no calf tenderness. negative homans. good distal pulses
��
�
[2024-11-16] MEDS: IMDUR (EXTENDED RELEASE) 30 MG PO (10:06)
--- NOTE | 2024-11-16 10:39 | W.PN.NEPH.PH ---
Today's Communication / Plan
-
follow labs
Assessment/Plan
-
Impression:
BRODERICK
Metabolic Alkalosis
Acute hypoxic respiratory failure on presentation due to new onset of congestive heart
Ischemic CM EF 30 to 35%
HTN
Type II NSTEMI
R pleural effusion
LLE gangrene s/p L BKA
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
Legally blind, secondary to hypercoagulable state, s/p R eye removal 1985
Chronic SOB, secondary to history of L collapsed lung secondary PE and hypercoagulable state
Obesity
HLD
DM2
Diabetic neuropathy
Psoriasis
L hip replacement 1985
Plan:
BRODERICK: cr better at 2.1
- Likely due to contrast mediated renal failure following cardiac catheterization 11/11 and hypotension on 11/13
postvoid bladder scans were with negligible residual
cont ot hold Diuretics and Entresto
- Urinalysis had noted underlying proteinuria likely consistent with diabetic nephropathy 300mg/gm of cr
stable Metabolic Alkalosis from chr resp acidosis/ hypercapnia
stable resp status, likely resume lasix in am
labs in am
plt decreasing-monitor
-
-
Date of Service: November 16, 2024
CC / HPI / ROS
-
Chief Complaint:
BRODERICK
History of Present Illness:
cr increasing to 2.1, UOP not measured, k normal
BP stable
off O2
plt low 69k
Review of Systems:
no sob at rest
no n/v
no abd pain
Labs
-
Labs:
WBC 7.1 10^3/uL (4.8-10.8) 11/16/24 03:22
RBC 4.10 10^6/uL (4.70-6.10) L 11/16/24 03:22
Hgb 11.4 g/dL (13.0-18.0) L 11/16/24 03:22
Hct 34.6 % (39.0-52.0) L 11/16/24 03:22
Plt Count 69 10^3/uL (130-400) L 11/16/24 03:22
Sodium 136 mmol/L (135-145) 11/16/24 03:22
Potassium 4.1 mmol/L (3.5-5.1) 11/16/24 03:22
Chloride 96 mmol/L (98-107) L 11/16/24 03:22
Carbon Dioxide 37 mmol/L (22-30) H 11/16/24 03:22
BUN 55 mg/dl (9-20) H 11/16/24 03:22
Creatinine 2.1 mg/dL (0.7-1.3) H 11/16/24 03:22
eGFR 33.24 11/16/24 03:22
Glucose 178 mg/dl (70-99) H 11/16/24 03:22
Calcium 8.9 mg/dl (8.4-10.2) 11/16/24 03:22
Hha-T-Sjageqskosj Pept 9260 pg/ml 11/07/24 19:19
Albumin 3.7 g/dl (3.5-5.0) 11/07/24 19:19
Physical Exam
-
Vital Signs:
Vital Signs
Temp Pulse Resp BP Pulse Ox
97.5 F 65 24 132/82 93
11/16/24 09:04 11/16/24 08:14 11/16/24 06:00 11/16/24 08:14 11/16/24 09:40
Cardiovascular:: Regular rate and rhythm
Respiratory:: Bilateral: CTA (decreased)
Lung Excursion:: Normal
Abdomen:: Nontender and Soft
Extremity Edema:: +1: Bilateral:
Rowley Catheter: No
Other Findings::
left BKA and right TMA stump
[2024-11-16 11:49] LABS: Glucose - Point of Care 207 mg/dl (70-99)
[2024-11-16] MEDS: NOVOLOG FLEXPEN-MODERATE RESISTANCE 3 UNITS SC (12:16)
--- NOTE | 2024-11-16 13:39 | W.PN.HOSP.TC ---
Today's Communication/Plan
-
likely resume Lasix tomorrow
continue 1mg Coumadin HS and follow INRs
DC planning to SNF
Assessment / Plan
Assessment / Plan
Assessment:
Acute on suspected chronic hypoxic and hypercapnic respiratory failure due to acute CHF (Pneumonia was ruled out)
- wean O2 as able
- weaned BiPAP; now using prn HS
- prn nebs
- pulm following
Acute on chronic HFrEF
- holding IV Lasix for BRODERICK; possible resume tomorrow per Cards/Renal
- Echo: EF now 35% from 60%
- GDMT: Coreg/Entresto
BRODERICK
Metabolic alkalosis
- likely KENNY
- Cr 2.1
- Nephrology following
- remains off nephrotoxins
- monitor I/Os, bladder scans
acute R pleural effusion from acute CHF
- s/p thoracentesis 11/11; 800 cc removed.
type 2 NSTEMI
CAD s/p stents 2014
- LHC: severe multivessel coronary artery disease, there is no PCI targets per Cardiology. CT surgery also evaluated and patient felt a poor surgical candidate
- continue medical management: ASA/Statin/BB/Imdur
Right sided abdominal pain
- CT abdomen pelvis showed: No significant acute process in the abdomen or pelvis. Diverticulosis coli. Cholelithiasis.
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
Supratherapeutic INR
- continue Coumadin, reduce to 1mg daily after discussion with pharmacy. f/u INRs
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
Hx Right partial foot amputation
- PT/OT - SNF rehab
History of diabetes mellitus
- Continue home medication
- Insulin sliding scale
- Diabetic diet
- Hemoglobin A1c 5.6%
- Toujeo 25 units continued
Accelerated essential hypertension
- Blood pressure acceptable
Hypokalemia - replete prn
DVT ppx: Coumadin
Code: Full
Anticipated Discharge: > 48 hours
Subjective/Interval History
-
Date of Service: November 16, 2024
resting comfortably, no complaints
Objective Data
-
Labs:
Laboratory Results
11/16/24
03:22
WBC 7.1
Hgb 11.4 L
Hct 34.6 L
Plt Count 69 L
PT 30.9 H
INR 2.99
Sodium 136
Potassium 4.1
Chloride 96 L
Carbon Dioxide 37 H
BUN 55 H
Creatinine 2.1 H
Glucose 178 H
Calcium 8.9
Vital Signs:
Vital Signs
Temp Pulse Resp BP Pulse Ox
98.2 F 65 24 132/82 93
11/16/24 11:29 11/16/24 08:14 11/16/24 06:00 11/16/24 08:14 11/16/24 09:40
I&O
11/15/24 11/16/24 11/17/24
06:59 06:59 06:59
Intake Total 240 / 240 240 / 240 480 / 480
Output Total 70 / 70 160 / 160
Balance 170 / 170 80 / 80 480 / 480
Physical Exam
-
General: No Apparent Distress
HEENT: Normocephalic and Atraumatic
Respiratory: Negative Wheezes
Cardiac: Regular Rhythm and S1/S2
GI: Soft and Nontender
Musculoskeletal: Edema, Right Lower Extrem and Edema, Left Lower Extrem
Neuro: AO x 3
Psych: Calm
Data Reviewed
-
Total Time Spent with Patient (in minutes): 45
Labs: Labs Reviewed by me
[2024-11-16 16:18] LABS: Glucose - Point of Care 164 mg/dl (70-99)
[2024-11-16] MEDS: LIPITOR 40 MG PO (17:04)
[2024-11-16] MEDS: COUMADIN 1 MG PO (17:04)
[2024-11-16] MEDS: NOVOLOG FLEXPEN-MODERATE RESISTANCE 1 UNITS SC (17:05)
[2024-11-16] MEDS: LANTUS 0.32 UNITS SC (21:54)
[2024-11-16] MEDS: OFIRMEV 100 IV (21:55)
[2024-11-16] MEDS: FLUSH (NSS) 2 FLUSH IV (21:56)
[2024-11-16 22:03] LABS: Glucose - Point of Care 328 mg/dl (70-99)
[2024-11-17] VITALS (12 sets, daily range): BP systolic 102–136; BP diastolic 51–108; BMI 37.8
--- NOTE | 2024-11-17 02:48 | PTCARENOTE ---
Pt received at beginning of shift resting in bed. C/o right wrist pain earlier in shift 12/05. Kiana HOLLEY on floor and made aware and assessed pt's wrist. Pt did not want PO Tylenol but was agreeable to IV Tylenol. Medication given as ordered and pt
had good relief. No change in assessment of right wrist from previous. VSS. Afebrile. SB/SR/ST 50's-122 on CM. POX RA 95-98%. Urinating small amounts in urinal. No change from previous assessment. Maintained on Q2hr turns. Call read remains within
reach. Will continue to monitor.
[2024-11-17 04:06] LABS: Hemoglobin 10.4 g/dL (13.0-18.0); Mean Corp Hgb Conc. 31.5 g/dL (33.0-37.0); Mean Corpuscular Hgb 26.9 pg (27.0-31.0); Mean Corpuscular Volume 85.5 fL (80.0-94.0); Mean Platelet Volume 12.6 fL (7.4-10.4); Platelet Count 75 10^3/uL (130-400); Red Blood Cell Count 3.86 10^6/uL (4.70-6.10); Red Cell Dist. Width 14.6 % (11.5-14.5); White Blood Cell Count 5.9 10^3/uL (4.8-10.8)
[2024-11-17 04:10] LABS: INR 3.24; PT 32.9 Sec (11.4-14.6)
[2024-11-17 04:21] LABS: Blood Urea Nitrogen 57 mg/dl (9-20); Calcium 8.4 mg/dl (8.4-10.2); Carbon Dioxide 36 mmol/L (22-30); Chloride 95 mmol/L (98-107); Estimated Creatinine Clearance 54 ml/min; Glucose 235 mg/dl (70-99); Magnesium 2.7 mg/dl (1.6-2.3); Sodium 135 mmol/L (135-145); eGFR 39.99
--- NOTE | 2024-11-17 04:51 | W.PN.UPDATE ---
Update Note
Progress Note Update
Patient noted w/7 beat run of Vtach around 1:45 am, patient sleeping. Magnesium level added to am labs. Magnesium resulted at 2.7, Supplemental magnesium Oxide 500mg PO daily placed on hold, to be reviewed by attending.
[2024-11-17 07:49] LABS: Glucose - Point of Care 202 mg/dl (70-99)
--- NOTE | 2024-11-17 08:12 | W.PN.HOSP.TC ---
Today's Communication/Plan
-
adjust coumadin dose to 0.5mg
increase Coreg to 6.25 mg bid
US of rt radial artery, in area of ABG
ID input, ?low grade cellulitis
input of cardio regarding NSVT
Assessment / Plan
Assessment / Plan
Assessment:
Acute on suspected chronic hypoxic and hypercapnic respiratory failure due to acute CHF (Pneumonia was ruled out)
- 98% on room air
- weaned BiPAP; now using prn HS
- prn nebs
- pulm signed off 11/14
Acute on chronic HFrEF
- holding IV Lasix for BRODERICK; possible per Cards/Renal
Creat 2.6-->2.1-->1.8
- Echo: EF now 35% from 60%
- GDMT: Coreg/Entresto
with continued chest pain, card would like to increase Coreg to 6.25 mg
BRODERICK
Metabolic alkalosis
- likely KENNY
- Nephrology following
- remains off nephrotoxins
- monitor I/Os, bladder scans
acute R pleural effusion from acute CHF
- s/p thoracentesis 11/11; 800 cc removed.
type 2 NSTEMI
CAD s/p stents 2014
- LHC: severe multivessel coronary artery disease, there is no PCI targets per Cardiology. CT surgery also evaluated and patient felt a poor surgical candidate
- continue medical management: ASA/Statin/BB/Imdur
Right sided abdominal pain
- CT abdomen pelvis showed: No significant acute process in the abdomen or pelvis. Diverticulosis coli. Cholelithiasis.
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
Supratherapeutic INR
- continue Coumadin, will order 0.5 mg for today with INR now 2.99-->3.24
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
Hx Right partial foot amputation
- PT/OT - SNF rehab
monitor noted 7 beat run of asymptomatic V-Tach
cardio made aware
Rt wrist pain
area of pain is very tender, red, but not warm. Will order US of area and request ID input, ?atypical infection
History of diabetes mellitus
- Continue home medication
- Insulin sliding scale
- Diabetic diet
- Hemoglobin A1c 5.6%
- Toujeo 25 units continued
glu 164-->328
continue current insulin dosing with improving renal fxn, may need to adjust moving forward
Accelerated essential hypertension
- Blood pressure acceptable
110/72
Hypokalemia - resolved, 4.0
DVT ppx: Coumadin
Code: Full
Anticipated Discharge: > 48 hours
Subjective/Interval History
-
Date of Service: November 17, 2024
Still with substernal chest heaviness, mild, but not resolved. Dr. Morris is aware
Objective Data
-
Labs:
Laboratory Results
11/17/24
03:20
WBC 5.9
Hgb 10.4 L
Hct 33.0 L
Plt Count 75 L
PT 32.9 H
INR 3.24
Sodium 135
Potassium 4.0
Chloride 95 L
Carbon Dioxide 36 H
BUN 57 H
Creatinine 1.8 H
Glucose 235 H
Calcium 8.4
Vital Signs:
Vital Signs
Temp Pulse Resp BP Pulse Ox
97.6 F 55 18 110/72 98
11/17/24 03:00 11/17/24 04:00 11/17/24 04:00 11/17/24 04:00 11/17/24 04:00
I&O
11/16/24 11/17/24 11/18/24
06:59 06:59 06:59
Intake Total 240 / 240 970 / 970
Output Total 260 / 260 450 / 450
Balance -20 / -20 520 / 520
Review of Systems
-
History Source: Patient, Physician (reviewed with Dr. Morris) and Coordinated Provider (reviewed with MIKAELA Paulino)
Respiratory: Reports No Symptoms; Denies Trouble Breathing
Cardiac: Reports Chest Pain
Abdomen/GI: Reports No Symptoms
Musculoskeletal: Reports Other (rt wrist pain)
Physical Exam
-
General: No Apparent Distress
HEENT: Normocephalic and Atraumatic
Respiratory: Negative Wheezes
Cardiac: Regular Rhythm and S1/S2
GI: Soft and Nontender
Musculoskeletal: Edema, Right Lower Extrem and Other (left BKA, rt wrist in area of pain, over radial artery is red, but not warm)
Skin: Rash (?rt wrist cellulitis)
Neuro: AO x 3
Psych: Calm
[2024-11-17] MEDS: NOVOLOG FLEXPEN-MODERATE RESISTANCE 3 UNITS SC ×2 (08:56→17:15)
[2024-11-17] MEDS: DESENEX/MITRAZOL/ZEASORB 1 APPLIC TOPICAL ×2 (08:57→20:08)
[2024-11-17] MEDS: IMDUR (EXTENDED RELEASE) 30 MG PO (08:58)
[2024-11-17] MEDS: SENOKOT PO ×2 (08:58→20:08)
[2024-11-17] MEDS: LOW STRENGTH ASPIRIN 81 MG PO (08:58)
[2024-11-17] MEDS: COREG 6.25 MG PO ×2 (09:14→20:07)
--- NOTE | 2024-11-17 10:38 | W.PN.CARDCBS ---
Today's Communication / Plan
-
Increasing Coreg
Resuming daily Lasix
Added Imdur
Continue aspirin
Holding Entresto
Creatinine continues to improve
Medical management of CAD
He does have less chest symptoms today with titration of medicines
Perhaps ready to leave the IMU over the next 24 hours
Impression / Plan
-
Pre K Lead Teacher: None prior to admission, initially seen by Dr. Keating
Assessment:
Presented with SOB 11/07/2024
Acute hypoxic respiratory failure
Acute on chronic HFrEF
Ischemic CM EF 30 to 35%
Hypertensive urgency, improved
NSTEMI
R pleural effusion
s/p thoracentesis for 800 cc 11/11/2024
CAD
s/p BMS to RCA 03/2013 at [place]
MV CAD by cath 11/11/2024
PVD
s/p LLE stenting per patient 2013
LLE gangrene s/p L BKA
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
Left distal SFA, mid SFA, proximal SFA stents x3, left peroneal artery/TP trunk angioplasty 06/2022
h/o clotting disorder, pt believes protein C&S deficiency, on chronic Coumadin
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
Legally blind, secondary to hypercoagulable state, s/p R eye removal 1985
Chronic SOB, secondary to history of L collapsed lung secondary PE and hypercoagulable state
Obesity
HLD
DM2
Diabetic neuropathy
Psoriasis
L hip replacement 1985
Cardiac catheterization 11/11/2024: LM: Diffuse 50% stenosis with significant pressure damping of about 30 to 40 mmhg upon selective engagement with 5 Slovak catheter. LAD: Mid diffuse 70 to 80% stenosis banding across takeoff of 2 diagonal
branches. D2 small caliber with 60 to 70% ostial stenosis. D3 very small caliber with 70 to 80% ostial stenosis. Robust [id number]-za-[id number] collaterals. Left circumflex: 70% proximal stenosis at OM1 takeoff. RCA: 100% in-stent chronic total occlusion
with [id number] collaterals.
Echo 07/13/2022: Technically difficult study, Definity used, EF 61%, no gross segmental wall motion abnormalities, mild concentric LVH, no significant valvular pathology within the limits of study
Echo 11/08/2024: Moderately reduced systolic function, global hypokinesis, EF 30-35%, G3 DD, normal RV size and function, mild mean gradient 11 mmHg, trace TR PASP 24 mmHg
Plan:
-Presented with SOB and hypoxia. Admitted with acute heart failure and NSTEMI. ProBNP 9260 on arrival.
-EF newly reduced at 30-35% by echo 11/08, underwent cardiac cath 11/11 w/ MV CAD and elevated LVEDP of 32 mmHg and left main disease.
-Continue medical management of CAD. Not felt to be surgical candidate and poor PCI targets-Case was reviewed by CT surgery
-Diuresed earlier in admission w/ IV lasix, however developed BRODERICK post-cath. Creat up to 2.6 11/15. Creatinine continues to improve, Resuming daily IV lasix 11/17
-Entresto remains on hold. Nephrology following.
-Weight overall stable at 287 lbs.
-Continue coreg which we are increasing on November 17, aspirin. Notes no further chest pain this AM. As needed hydralazine is noted and I ordered Imdur as another antianginal which she seems to be tolerating at 30 mg daily
-Continue high intensity statin. LDL 44.
-Known h/o hypercoagulable state, on Coumadin as OP. INR 2.5 11/15. Please resume warfarin to goal INR 2-3
-Wean O2 as able, on 2L NC. We will follow with you
-Will ultrasound right wrist given pain he is had ABGs and radial access and that region
Progress Note - Pre K Lead Teacher
Subjective
Date of Service: November 17, 2024
Chest pain is improved and kidney function is improved
Objective
Labs:
11/17/24 03:20
11/17/24 03:20
Labs
Hgb 10.4 g/dL (13.0-18.0) L 11/17/24 03:20
Hct 33.0 % (39.0-52.0) L 11/17/24 03:20
Plt Count 75 10^3/uL (130-400) L 11/17/24 03:20
PT 32.9 Sec (11.4-14.6) H 11/17/24 03:20
INR 3.24 11/17/24 03:20
APTT 139.9 Sec (23.4-35.0) H 11/14/24 05:01
Sodium 135 mmol/L (135-145) 11/17/24 03:20
Potassium 4.0 mmol/L (3.5-5.1) 11/17/24 03:20
BUN 57 mg/dl (9-20) H 11/17/24 03:20
Creatinine 1.8 mg/dL (0.7-1.3) H 11/17/24 03:20
Glucose 235 mg/dl (70-99) H 11/17/24 03:20
Vital Signs and I&O:
Vital Signs
Temp Pulse Resp BP Pulse Ox
97.5 F 71 18 110/72 98
11/17/24 07:05 11/17/24 09:14 11/17/24 04:00 11/17/24 04:00 11/17/24 04:00
Vital Signs
Temp Pulse Resp BP Pulse Ox
97.5 F 71 18 110/72 98
11/17/24 07:05 11/17/24 09:14 11/17/24 04:00 11/17/24 04:00 11/17/24 04:00
Intake & Output
11/15/24 11/16/24 11/17/24 11/18/24
06:59 06:59 06:59 06:59
Intake Total 240 / 240 240 / 240 970 / 970
Output Total 70 / 70 260 / 260 450 / 450
Balance 170 / 170 -20 / -20 520 / 520
Physical Exam
Physical Exam
����Physical Exam
���������������������General:��no apparent distress, not acutely ill
���������������������������Neck:��supple. no meningeal signs. normal psoterior pharynx
������������������������
���������������������������Heart:��s1/s2 regular rate and rhythm, no murmur. equal radial pulses.
��������������������������Lungs: ��no acute respiratory distress. clear bilaterally
����������������������Abdomen:�normal bowel sounds. not tender. no CVAT
��������������������������Neuro:��alert and oriented. no focal neurological deficits
������������������������������Skin: ��no rash
�����������������������Psychiatric:�well kept. interactive and cooperative
�����������������������Extremities:��no edema. no calf tenderness. negative homans. good distal pulses
��
�
[2024-11-17] MEDS: COREG PO (10:45)
--- NOTE | 2024-11-17 10:48 | W.PN.NEPH.PH ---
Today's Communication / Plan
-
ok to resume lasix
Assessment/Plan
-
Impression:
BRODERICK
Metabolic Alkalosis
Acute hypoxic respiratory failure on presentation due to new onset of congestive heart
Ischemic CM EF 30 to 35%
HTN
Type II NSTEMI
R pleural effusion
LLE gangrene s/p L BKA
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
Legally blind, secondary to hypercoagulable state, s/p R eye removal 1985
Chronic SOB, secondary to history of L collapsed lung secondary PE and hypercoagulable state
Obesity
HLD
DM2
Diabetic neuropathy
Psoriasis
L hip replacement 1985
Plan:
BRODERICK: cr better at 1.8
- Likely due to contrast mediated renal failure following cardiac catheterization 11/11 and hypotension on 11/13
postvoid bladder scans were with negligible residual
cont to hold Entresto
may resume lasix , med adjustment per cards
- Urinalysis had noted underlying proteinuria likely consistent with diabetic nephropathy 300mg/gm of cr
stable Metabolic Alkalosis from chr resp acidosis/ hypercapnia
labs in am
-
-
Date of Service: November 17, 2024
CC / HPI / ROS
-
Chief Complaint:
BRODERICK
History of Present Illness:
cr better at 1.8, UOP not measured, k normal
BP stable , met alkalosis bicarb 36
off O2
plt low 75k
Review of Systems:
no sob at rest
no n/v
no abd pain
Labs
-
Labs:
WBC 5.9 10^3/uL (4.8-10.8) 11/17/24 03:20
RBC 3.86 10^6/uL (4.70-6.10) L 11/17/24 03:20
Hgb 10.4 g/dL (13.0-18.0) L 11/17/24 03:20
Hct 33.0 % (39.0-52.0) L 11/17/24 03:20
Plt Count 75 10^3/uL (130-400) L 11/17/24 03:20
Sodium 135 mmol/L (135-145) 11/17/24 03:20
Potassium 4.0 mmol/L (3.5-5.1) 11/17/24 03:20
Chloride 95 mmol/L (98-107) L 11/17/24 03:20
Carbon Dioxide 36 mmol/L (22-30) H 11/17/24 03:20
BUN 57 mg/dl (9-20) H 11/17/24 03:20
Creatinine 1.8 mg/dL (0.7-1.3) H 11/17/24 03:20
eGFR 39.99 11/17/24 03:20
Glucose 235 mg/dl (70-99) H 11/17/24 03:20
Calcium 8.4 mg/dl (8.4-10.2) 11/17/24 03:20
Rrk-O-Dbpcfcqgusv Pept 9260 pg/ml 11/07/24 19:19
Albumin 3.7 g/dl (3.5-5.0) 11/07/24 19:19
Physical Exam
-
Vital Signs:
Vital Signs
Temp Pulse Resp BP Pulse Ox
97.4 F 65 21 119/60 81
11/17/24 11:05 11/17/24 12:00 11/17/24 12:00 11/17/24 12:00 11/17/24 12:00
Cardiovascular:: Regular rate and rhythm
Respiratory:: Bilateral: CTA (decreased)
Lung Excursion:: Normal
Abdomen:: Nontender and Soft
Extremity Edema:: +1: Bilateral:
Rowley Catheter: No
Other Findings::
left BKA and right TMA stump
[2024-11-17 13:00] LABS: Glucose - Point of Care 265 mg/dl (70-99)
[2024-11-17] MEDS: NOVOLOG FLEXPEN-MODERATE RESISTANCE 5 UNITS SC (13:15)
[2024-11-17] MEDS: LASIX 80 MG IV (13:16)
--- NOTE | 2024-11-17 14:48 | CON.ID ---
Consultation
-
Date/Time Consultation Requested: November 17, 2024 0837
Date/Time Consultation Performed: November 17, 2024 1450
Requesting Provider: Dr. Ty Owen
Performing Provider: Dr. Deepa Gerard
Reason for Consultation: Redness at ABG arterial site
Chief Complaint / Past History
Chief Complaint
Shortness of breath
History of Present Illness
68-year-old male with history of diabetes mellitus, CAD, protein C deficiency who presented to the hospital on November 07 for 2-week history of worsening dyspnea and lower extremity edema. He was hypoxic. Chest x-ray showed acute CHF. Positive
non-ST elevation IN. Echocardiogram EF 30 to 35%. November 11 cardiac catheterization via right radial site showed severe multivessel CAD without PCI targets. November 13, ABG collected from right radial artery. Patient reports since the last ABG, he
has pain over the radial artery site extending to his elbow. Otherwise no fevers or chills. Shortness of breath is improving.
Past History
Additional Past Medical History:
Type 2 diabetes
Neuropathy
Psoriasis
Protein C deficiency
DVT PE
CAD status post stent
Blind
Obesity BMI 37.8
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
Right foot TMA
Left hip replacement
Right eye enucleation
Allergy History:
pregabalin (From Lyrica) Allergy (Verified 11/07/24 18:25)
Unknown
Medications Reviewed: Yes
Current Antibiotics:
None
Social History
Tobacco: Non-Smoker
Alcohol: None
Drug: None
Personal:
Family History
Family History: Not Pertinent
Review of Systems
Review of Systems
General: Negative Fever, Chills or Change in Appetite
HEENT: Negative Sinus Problems or Headache
Gasteroenterology: Negative Nausea, Vomiting or Diarrhea
Genital / Urological: Negative Dysuria or Flank Pain
Endocrine: Weakness
All systems: All other systems were reviewed and were negative
Vital Signs
Temp Pulse Resp BP Pulse Ox
97.4 F 65 21 119/60 81
11/17/24 11:05 11/17/24 12:00 11/17/24 12:00 11/17/24 12:00 11/17/24 12:00
Physical Exam
Physical Exam
Constitutional: Comfortable and Obese
Head: Other (No frontal or max or sinus tenderness)
Cardiovascular: Regular Rate and S1/S2
Pulmonary: Rales
Gastrointestinal: Soft, Non Tender, Non Distended and Normal Bowel Sounds
Extremities: Edema and Other (Right wrist radial artery puncture site with scab, minimal erythema, no induration, fingers cool)
Skin: Rash (Diffuse scattered dry white plaques)
Neurological: AO x 3
Lab / Diagnostic Study Results
11/17/24 03:20
11/17/24 03:20
Abs Immat Gran (auto) 0.0 10^3/uL (0-0.05) 11/07/24 19:19
Absolute Neuts (auto) 8.8 10^3/uL (1.4-6.5) H 11/07/24 19:19
Absolute Lymphs (auto) 1.1 10^3/uL (1.2-3.4) L 11/07/24 19:19
Absolute Monos (auto) 0.7 10^3/uL (0.1-0.6) H 11/07/24 19:19
Absolute Basos (auto) 0.0 10^3/uL (0-0.2) 11/07/24 19:19
Immature Gran % 0.3 % (0-0.5) 11/07/24 19:19
Neutrophils % 82.1 % (42.2-75.2) H 11/07/24 19:19
Lymphocytes % 10.2 % (20.5-51.1) L 11/07/24 19:19
Monocytes % 6.4 % (1.7-9.3) 11/07/24 19:19
Eosinophils % 0.7 % (0-6) 11/07/24 19:19
Basophils % 0.3 % (0-2) 11/07/24 19:19
PT 32.9 Sec (11.4-14.6) H 11/17/24 03:20
INR 3.24 11/17/24 03:20
Urine WBC 3-5 /HPF (0-5) 11/15/24 15:08
Ur Squamous Epith Cells 0-2 /LPF (Few) 11/15/24 15:08
Microbiology Results
Micro:
11/11/24 11:35 Body Fluid Culture - Final
Pleural Fluid No Growth After 72 Hours
Gram Stain - Final
11/07/24 21:12 Urine Culture - Final
Urine
11/08/24 00:33 MRSA Screen - Final
Nose No Methicillin Resistant Staphylococcus aureus isolated.
11/13/24 CXR: No pneumothorax. Low lung volumes. Left basilar opacity again seen without significant change which could represent subsegmental atelectasis and/for pneumonia and possible small left pleural effusion.
11/07/24 CT a/p: No significant acute process in the abdomen or pelvis. Diverticulosis coli. Cholelithiasis.
Assessment / Plan
# Suspect right radial arteritis from ABG stick vs cardiac cath dye
- Agree with US
- Apply warm compress qid
- Observe off abx
# NSTEMI
# Acute HFrEF 30%
- 11/11 s/p cardiac cath- severe MV CAD without PCI targets
# Conditions APPLICATION HELPER
Type 2 diabetes
Neuropathy
Psoriasis
Protein C deficiency
DVT PE
CAD status post stent
Blind
Obesity BMI 37.8
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
Right foot TMA
Left hip replacement
Right eye enucleation
[2024-11-17 16:59] LABS: Glucose - Point of Care 244 mg/dl (70-99)
[2024-11-17] MEDS: LIPITOR 40 MG PO (17:16)
[2024-11-17] MEDS: COUMADIN 0.5 MG PO (17:16)
[2024-11-17] MEDS: TYLENOL 1000 MG PO (20:07)
--- NOTE | 2024-11-17 20:34 | PTCARENOTE ---
Pt reports ongoing R wrist pain, concerned with possible clot - informed Ultrasound was ordered for tomorrow. Heat pack provided; SINGLE CORNER CUTTER contacted and Tylenol requested for pain - ordered; Tylenol administered with minimal relief. Will continue to
monitor and assess.
[2024-11-17] MEDS: LANTUS 0.32 UNITS SC (21:36)
[2024-11-17 21:40] LABS: Glucose - Point of Care 253 mg/dl (70-99)
[2024-11-18] VITALS (15 sets, daily range): BP systolic 109–141; BP diastolic 62–87; PULSE 73–74; BMI 38.1
[2024-11-18 04:20] LABS: Hematocrit 34.9 % (39.0-52.0); Hemoglobin 11.1 g/dL (13.0-18.0); Mean Corp Hgb Conc. 31.8 g/dL (33.0-37.0); Mean Corpuscular Hgb 27.2 pg (27.0-31.0); Mean Corpuscular Volume 85.5 fL (80.0-94.0); Mean Platelet Volume 12.9 fL (7.4-10.4); Platelet Count 80 10^3/uL (130-400); Red Blood Cell Count 4.08 10^6/uL (4.70-6.10); Red Cell Dist. Width 14.4 % (11.5-14.5)
[2024-11-18 04:32] LABS: Blood Urea Nitrogen 47 mg/dl (9-20); Carbon Dioxide 39 mmol/L (22-30); Chloride 95 mmol/L (98-107); Estimated Creatinine Clearance 61 ml/min; Glucose 191 mg/dl (70-99); Sodium 138 mmol/L (135-145); eGFR 46.06
[2024-11-18 04:48] LABS: Calcium 8.7 mg/dl (8.4-10.2); Magnesium 2.5 mg/dl (1.6-2.3)
[2024-11-18 07:59] LABS: Glucose - Point of Care 181 mg/dl (70-99)
[2024-11-18] MEDS: LASIX 80 MG IV (08:10)
[2024-11-18] MEDS: NOVOLOG FLEXPEN-MODERATE RESISTANCE 1 UNITS SC ×2 (08:10→14:28)
[2024-11-18] MEDS: LOW STRENGTH ASPIRIN 81 MG PO (08:11)
[2024-11-18] MEDS: DESENEX/MITRAZOL/ZEASORB 1 APPLIC TOPICAL ×2 (08:11→20:04)
[2024-11-18] MEDS: IMDUR (EXTENDED RELEASE) 30 MG PO (08:11)
[2024-11-18] MEDS: COREG 6.25 MG PO ×2 (08:11→20:04)
[2024-11-18] MEDS: SENOKOT PO ×2 (08:17→20:05)
--- NOTE | 2024-11-18 11:17 | W.PN.CARDCBS ---
Addendum entered and electronically signed by Rogerio Shelley MD 11/18/24 14:29:
INR is 3, platelets are 80, will need to follow
Addendum entered and electronically signed by Rogerio Shelley MD 11/18/24 14:22:
Unfortunate 68-year-old man with multiple medical comorbidities admitted November 07 with acute heart failure. Found to have ejection fraction of 30-35% at admission, cardiac catheterization November 11 with multivessel CAD, left main disease, turndown for
PCI and CABG, and BRODERICK on CKD
PMH/PSH: CAD with bare-metal stent to RCA, protein C&S deficiency, legally blind with enucleation of right eye in 1985, PAD with left BKA, right transmetatarsal potation, left lower extremity stenting 2013, and repeat SFA and left peroneal/tibial
peroneal angioplasty 2022, history of DVT/PE, obesity, hyperlipidemia, diabetes with neuropathy, psoriasis and left total hip arthroplasty
Current medications: Aspirin 81 mg a day, Entresto 24/26 mg twice daily, atorvastatin 40 mg a day, magnesium, potassium 20 mill equivalents daily, Senokot, Lantus, Imdur 30 mg a day, carvedilol 6.25 twice daily, warfarin 0.5 mg and furosemide 80 mg
IV daily. Entresto, magnesium and potassium are on hold
129/81, pulse 65, respiratory 21, afebrile, weight is 131.1 kg up 1.3 kg, on admission weight was 137 kg, no acute distress, enucleated right eye, low vision left eye, obese, pleasant, lungs are clear, regular rate and rhythm, soft systolic murmur,
JVD probably okay, abdomen obese, left BKA, right transmetatarsal, neuro nonfocal
Hemoglobin is 11.1, platelets are 80, BUN/creatinine are 47 and 1.6, creatinine was 1.1 on admission, peaked at 2.6 on the , was 1.8 yesterday, potassium is 4.0, proBNP was 9260 on admission, troponin 0.071
Plan:
Still somewhat volume overloaded with shortness of breath. Furosemide had been held related to BRODERICK, and resumed furosemide 80 mg IV daily., Creatinine still above baseline but is improving. Continue furosemide 80 mg a day.
No chest pain despite severe three-vessel disease with moderate left main disease. Medical management is the only realistic option at present.
He is on carvedilol. Entresto has been held. Consider restart in the morning if creatinine continues to improve. Would be desirable to add an SGLT2 antagonist and will reassess day by day. Currently may be best to withhold spironolactone though
mineralocorticoid would be useful as well if feasible from a renal standpoint.
Radial arterial ultrasound is pending, preliminary assessment by me is that he does not have a pseudoaneurysm
We will continue to follow.
Original Note:
Today's Communication / Plan
-
Restart Entresto 24/26 mg BID in AM if Cre stable, labs ordered by me
Updated by phone for 15:26 min
Impression / Plan
-
PCP: Dr. Bairon Winchester
Circular Knife Cutter Machine: None prior to admission, initially seen by Dr. Keating
Assessment:
Presented with SOB 11/07/2024
Acute hypoxic respiratory failure
Acute on chronic HFrEF
Ischemic CM EF 30 to 35%
Hypertensive urgency, improved
NSTEMI, peak Troponin 0.073
R pleural effusion
s/p thoracentesis for 800 cc 11/11/2024
CAD
s/p BMS to RCA at [facility] 03/2013
MV CAD by cath 11/11/2024
PVD
s/p LLE stenting per patient 2013
LLE gangrene s/p L BKA
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
Left distal SFA, mid SFA, proximal SFA stents x3, left peroneal artery/TP trunk angioplasty 06/2022
h/o clotting disorder, pt believes protein C&S deficiency, on chronic Coumadin
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
Legally blind, secondary to hypercoagulable state, s/p R eye removal 1985
Chronic SOB, secondary to history of L collapsed lung secondary PE and hypercoagulable state
Obesity
HLD
DM2
Diabetic neuropathy
Psoriasis
L hip replacement 1985
Cardiac catheterization 11/11/2024: LM: Diffuse 50% stenosis with significant pressure damping of about 30 to 40 mmHg upon selective engagement with 5 Azerbaijani catheter. LAD: Mid diffuse 70 to 80% stenosis banding across takeoff of 2 diagonal
branches. D2 small caliber with 60 to 70% ostial stenosis. D3 very small caliber with 70 to 80% ostial stenosis. Robust pmco-vt-ybhip collaterals. Left circumflex: 70% proximal stenosis at OM1 takeoff. RCA: 100% in-stent chronic total occlusion
with [id number]-atwym collaterals.
Echo 07/13/2022: Technically difficult study, Definity used, EF 61%, no gross segmental wall motion abnormalities, mild concentric LVH, no significant valvular pathology within the limits of study
Echo 11/08/2024: Moderately reduced systolic function, global hypokinesis, EF 30-35%, G3 DD, normal RV size and function, mild mean gradient 11 mmHg, trace TR PASP 24 mmHg
Plan:
-Patient with SOB and hypoxia on admission in the setting of acute HFrEF, new ICM and NSTEMI.
-Patient weighed 289 lbs on admission and weighs 289 lbs 11/18/24. Weight peaked at 293 lbs on 11/12/24. Patient diuresed with initially Lasix 40 mg IV BID and then briefly increased to Lasix 80 mg IV BID, but then held due to BRODERICK. Most recently
ordered Lasix 80 mg IV daily starting 11/17/2024. Patient was not taking a loop diuretic prior to admission
-EF 30 to 35% by echo 11/08/2024 and is being managed as ICM
-New to Coreg 6.25 mg BID this admission
-Patient was not taking JESSICA/ARB/ARNI/aldosterone antagonist prior to admission, but was started on Entresto 24/26 mg BID and then held due to post cath BRODERICK. Cre as high as 2.6 on 11/15/2024. Cre improved to 1.6 on 11/18/2024 on labs reviewed by me,
will plan to restart Entresto 24/26 mg BID if stable Cre on labs 11/19/24. Patient and agreeable to higher initial upfront cost of Entresto and expect the cost will drop once they meet their deductible.
-Patient manage as NSTEMI with peak troponin 0.073 this admission.
-Outpatient dose of aspirin 81 mg daily continued not sure if there was a role for switching to Plavix given NSTEMI
-Patient is also chronically on warfarin and INR is therapeutic at 3.0 on labs reviewed by me 11/18/2024
-LDL 44 an outpatient dose of atorvastatin was increased to 40 mg daily this admission
-Patient is not a candidate for cardiac rehab at this time because he needs ongoing work with PT and his prosthesis, More rehab is being considered and that would be patient and preference as well
-Plan is for medical management of CAD. Not felt to be surgical candidate and poor PCI targets and not felt to be CT surgery candidate
-New to Imdur ER 30 mg daily on 11/16/2024 and no recurrence of chest pain
-Talked with patient's by phone in room with patient for 15 minutes 26 seconds on 11/18/2024 and reviewed admission thus far and all medication changes in detail. We also talked about their desire for More rehab to help improve gait and use of
prosthesis.
Progress Note - Circular Knife Cutter Machine
Subjective
Date of Service: November 18, 2024
Some pain in the right wrist, no CP
Objective
Labs:
11/18/24 03:50
11/18/24 03:50
Labs
Hgb 11.1 g/dL (13.0-18.0) L 11/18/24 03:50
Hct 34.9 % (39.0-52.0) L 11/18/24 03:50
Plt Count 80 10^3/uL (130-400) L 11/18/24 03:50
PT 31.0 Sec (11.4-14.6) H 11/18/24 03:50
INR 3.00 11/18/24 03:50
APTT 139.9 Sec (23.4-35.0) H 11/14/24 05:01
Sodium 138 mmol/L (135-145) 11/18/24 03:50
Potassium 4.0 mmol/L (3.5-5.1) 11/18/24 03:50
BUN 47 mg/dl (9-20) H 11/18/24 03:50
Creatinine 1.6 mg/dL (0.7-1.3) H 11/18/24 03:50
Glucose 191 mg/dl (70-99) H 11/18/24 03:50
Vital Signs and I&O:
Vital Signs
Temp Pulse Resp BP Pulse Ox
97.6 F 65 21 129/81 89
11/18/24 10:58 11/18/24 10:08 11/18/24 10:08 11/18/24 10:08 11/18/24 02:00
Vital Signs
Temp Pulse Resp BP Pulse Ox
97.6 F 65 21 129/81 89
11/18/24 10:58 11/18/24 10:08 11/18/24 10:08 11/18/24 10:08 11/18/24 02:00
Intake & Output
11/16/24 11/17/24 11/18/24 11/19/24
06:59 06:59 06:59 06:59
Intake Total 240 / 240 970 / 970
Output Total 260 / 260 450 / 450 1100 / 1100 150 / 150
Balance -20 / -20 520 / 520 -1100 / -1100 -150 / -150
Physical Exam
Physical Exam
GEN: AAOx3
LUNGS: RA. No audible wheeze
CV: SR on tele.
EXT: L BKA, R AKA noted
NEURO: Gross non-focal
SKIN: Warm, dry, no rash
--- NOTE | 2024-11-18 11:57 | W.PN.NEPH.PH ---
Today's Communication / Plan
-
Continue diuretics
Assessment/Plan
-
Impression:
BRODERICK
Metabolic Alkalosis
Acute hypoxic respiratory failure on presentation due to new onset of congestive heart
Ischemic CM EF 30 to 35%
HTN
Type II NSTEMI
R pleural effusion
LLE gangrene s/p L BKA
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
Legally blind, secondary to hypercoagulable state, s/p R eye removal 1985
Chronic SOB, secondary to history of L collapsed lung secondary PE and hypercoagulable state
Obesity
HLD
DM2
Diabetic neuropathy
Psoriasis
L hip replacement 1985
Plan:
BRODERICK: cr better at 1.8>1.6
- Likely due to contrast mediated renal failure following cardiac catheterization 11/11 and hypotension on 11/13
postvoid bladder scans were with negligible residual
cont to hold Entresto
Lasix continued, med adjustment per cards
- Urinalysis had noted underlying proteinuria likely consistent with diabetic nephropathy 300mg/gm of cr
stable Metabolic Alkalosis from chr resp acidosis/ hypercapnia
-
-
Date of Service: November 18, 2024
CC / HPI / ROS
-
Chief Complaint:
BRODERICK
History of Present Illness:
cr better at 1.8, UOP not measured, k normal
BP stable , met alkalosis bicarb 36
off O2
plt low 75k
Review of Systems:
no sob at rest
no n/v
no abd pain
Labs
-
Labs:
WBC 6.0 10^3/uL (4.8-10.8) 11/18/24 03:50
RBC 4.08 10^6/uL (4.70-6.10) L 11/18/24 03:50
Hgb 11.1 g/dL (13.0-18.0) L 11/18/24 03:50
Hct 34.9 % (39.0-52.0) L 11/18/24 03:50
Plt Count 80 10^3/uL (130-400) L 11/18/24 03:50
Sodium 138 mmol/L (135-145) 11/18/24 03:50
Potassium 4.0 mmol/L (3.5-5.1) 11/18/24 03:50
Chloride 95 mmol/L (98-107) L 11/18/24 03:50
Carbon Dioxide 39 mmol/L (22-30) H 11/18/24 03:50
BUN 47 mg/dl (9-20) H 11/18/24 03:50
Creatinine 1.6 mg/dL (0.7-1.3) H 11/18/24 03:50
eGFR 46.06 11/18/24 03:50
Glucose 191 mg/dl (70-99) H 11/18/24 03:50
Calcium 8.7 mg/dl (8.4-10.2) 11/18/24 03:50
Qur-Y-Iabpoyrmjaz Pept 9260 pg/ml 11/07/24 19:19
Albumin 3.7 g/dl (3.5-5.0) 11/07/24 19:19
Physical Exam
-
Vital Signs:
Vital Signs
Temp Pulse Resp BP Pulse Ox
97.6 F 65 21 129/81 89
11/18/24 10:58 11/18/24 10:08 11/18/24 10:08 11/18/24 10:08 11/18/24 02:00
Cardiovascular:: Regular rate and rhythm
Respiratory:: Bilateral: CTA (decreased)
Lung Excursion:: Normal
Abdomen:: Nontender and Soft
Extremity Edema:: +1: Bilateral:
Rowley Catheter: No
Other Findings::
left BKA and right TMA stump
[2024-11-18 12:27] LABS: Glucose - Point of Care 176 mg/dl (70-99)
--- NOTE | 2024-11-18 13:18 | W.PN.ID1 ---
Date of Service
Date of Service: November 18, 2024
Today's Communication
Await arterial US.
Assessment / Plan
# Suspect right radial arteritis from ABG stick vs cardiac cath dye
- Arterial US pending
- Continue warm compress qid
- Observe off abx
# NSTEMI
# Acute HFrEF 30%
- 11/11 s/p cardiac cath- severe MV CAD without PCI targets
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
Type 2 diabetes
Neuropathy
Psoriasis
Protein C deficiency
DVT PE
CAD status post stent
Blind
Obesity BMI 37.8
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
Right foot TMA
Left hip replacement
Right eye enucleation
Chief Complaint
-: Other
Subjective / Review of Systems
right wrist continues to be painful.
Vital Signs / Physical Exam
Vital Signs
Vital Signs
Temp Pulse Resp BP Pulse Ox
97.6 F 72 17 129/81 96
11/18/24 10:58 11/18/24 12:00 11/18/24 12:00 11/18/24 10:08 11/18/24 13:06
Physical Exam
Constitutional: No Acute Distress
Cardiovascular: Regular Rate and S1/S2
Gastrointestinal: Soft, Non Tender and Non Distended
Extremities: Edema
Skin: Other (RUE + induration along radial artery, no erythema)
Neurological: AO x 3
Objective Data
Lab Data
Lab Results
11/18/24 03:50
11/18/24 03:50
PT 31.0 Sec (11.4-14.6) H 11/18/24 03:50
INR 3.00 11/18/24 03:50
APTT 139.9 Sec (23.4-35.0) H 11/14/24 05:01
Estimated Creat Clear 61 ml/min 11/18/24 03:50
Total Bilirubin 1.2 mg/dl (0.2-1.3) 11/07/24 19:19
AST 23 U/L (17-59) 11/07/24 19:19
ALT 23 U/L (0-50) 11/07/24 19:19
Alkaline Phosphatase 78 U/L (38-126) 11/07/24 19:19
Most recent labs reviewed.
Micro Results:
11/11/24 11:35 Body Fluid Culture - Final
Pleural Fluid No Growth After 72 Hours
Gram Stain - Final
11/07/24 21:12 Urine Culture - Final
Urine
11/08/24 00:33 MRSA Screen - Final
Nose No Methicillin Resistant Staphylococcus aureus isolated.
11/13/24 CXR: No pneumothorax. Low lung volumes. Left basilar opacity again seen without significant change which could represent subsegmental atelectasis and/for pneumonia and possible small left pleural effusion.
11/07/24 CT a/p: No significant acute process in the abdomen or pelvis. Diverticulosis coli. Cholelithiasis.
--- NOTE | 2024-11-18 14:06 | W.PN.HOSP.TC ---
Today's Communication/Plan
-
Vasc Surg consult
Assessment / Plan
Assessment / Plan
Assessment:
Acute on suspected chronic hypoxic and hypercapnic respiratory failure due to acute CHF (Pneumonia was ruled out)
- 98% on room air
- weaned BiPAP; now using prn HS
- prn nebs
- pulm signed off 11/14
Acute on chronic HFrEF
- resumed IV Lasix as per cardio
Creat 2.6-->2.1-->1.8-->1.6
- Echo: EF now 35% from 60%
- GDMT: Coreg 6.25 bid/Entresto remains on hold
with continued chest pain, card would like to increase Coreg to 6.25 mg, which was done and he is now stating he has less chest pain
BRODERICK
Metabolic alkalosis
- likely KENNY
- Nephrology following
- remains off nephrotoxins
- monitor I/Os, bladder scans
acute R pleural effusion from acute CHF
- s/p thoracentesis 11/11; 800 cc removed.
type 2 NSTEMI
CAD s/p stents 2014
- LHC: severe multivessel coronary artery disease, there is no PCI targets per Cardiology. CT surgery also evaluated and patient felt a poor surgical candidate
- continue medical management: ASA/Statin/BB/Imdur
Right sided abdominal pain
- CT abdomen pelvis showed: No significant acute process in the abdomen or pelvis. Diverticulosis coli. Cholelithiasis.
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
Supratherapeutic INR
- continue Coumadin, will order 1 mg for today with INR now 2.99-->3.24-->3.0
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
Hx Right partial foot amputation
- PT/OT - SNF rehab
monitor noted 7 beat run of asymptomatic V-Tach
cardio made aware
Rt wrist pain
area of pain is very tender, red, but not warm. Will order US of area, did not have results, call placed to radiology and reported as radial artery is occluded at the mid and distal forearm level
History of diabetes mellitus
- Continue home medication
- Insulin sliding scale
- Diabetic diet
- Hemoglobin A1c 5.6%
- Toujeo 25 units continued
glu [id number]
continue current insulin dosing with improving renal fxn, may need to adjust moving forward
Accelerated essential hypertension
- Blood pressure acceptable
129/81
Hypokalemia - resolved, 4.0
DVT ppx: Coumadin
Code: Full
Cardio has cleared pt to be transferred to tele, discussed with Vascular Surgery, they prefer to continue in IMU
Anticipated Discharge: > 48 hours
Subjective/Interval History
-
Date of Service: November 18, 2024
Generally feeling better. Chest heaviness has lessened
Objective Data
-
Labs:
Laboratory Results
11/18/24
03:50
WBC 6.0
Hgb 11.1 L
Hct 34.9 L
Plt Count 80 L
PT 31.0 H
INR 3.00
Sodium 138
Potassium 4.0
Chloride 95 L
Carbon Dioxide 39 H
BUN 47 H
Creatinine 1.6 H
Glucose 191 H
Calcium 8.7
Vital Signs:
Vital Signs
Temp Pulse Resp BP Pulse Ox
97.6 F 72 17 129/81 96
11/18/24 10:58 11/18/24 12:00 11/18/24 12:00 11/18/24 10:08 11/18/24 13:06
I&O
11/17/24 11/18/24 11/19/24
06:59 06:59 06:59
Intake Total 970 / 970
Output Total 450 / 450 1100 / 1100 575 / 575
Balance 520 / 520 -1100 / -1100 -575 / -575
Review of Systems
-
History Source: Patient and Coordinated Provider (reviewed with MIKAELA Paulino)
Respiratory: Reports No Symptoms; Denies Trouble Breathing
Cardiac: Reports Chest Pain (heaviness has lessened)
Abdomen/GI: Reports No Symptoms
Musculoskeletal: Reports Other (rt wrist pain)
Physical Exam
-
General: No Apparent Distress
HEENT: Normocephalic and Atraumatic
Respiratory: Negative Wheezes
Cardiac: Regular Rhythm and S1/S2
GI: Soft and Nontender
Musculoskeletal: Edema, Right Lower Extrem and Other (left BKA, rt wrist in area of pain, over radial artery is red, but not warm, Rt foot transmetatarsal amputation)
Skin: Rash (?rt wrist cellulitis)
Neuro: AO x 3
Psych: Calm
--- NOTE | 2024-11-18 14:14 | CM ---
CM reviewed chart- ADC>48 hours
Awaiting outcome of PMR consult
If rehab is needed on dc, pt will require auth
Discharge Disposition- TBD
--- NOTE | 2024-11-18 14:52 | CON.VAS ---
Addendum entered and electronically signed by Francisco Javier Waldron MD 11/19/24 07:28:
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 Agree with findings below. This is a late entry. RUE discomfort in volar wrist. No R hand/finger pain or weakness. s/p puncture for arterial blood gas. On exam/ R volar forearm with perhaps mild redness,
though not pronounced. No pulsatile mass. Slightly sensitive to touch. Hand is warm with full motor/sensory function.
Duplex reviewed.
Plan/ Thrombosed RUE radial artery. Patent ulnar. No evidence ischemia. Pain likely secondary to thrombosis. Warm compresses/NSAIDs. Will sign off. Please call with questions.
Original Note:
Consultation
Consultation Request
Date/Time Consultation Performed: 11/18/24 1400
Requesting Provider: Ty Owen MD
Performing Provider: Deepa Agee NP-C for Francisco Javier Waldron MD
Reason for Consultation: Right radial artery occlusion
Medical History
-
Chief Complaint: Right radial artery occlusion
History of Present Illness:
This is a 68 year old male patient with significant past medical history for DM, DVT/PE, psoriasis, protein C&S deficiency on Coumadin, CAD, PAD, and blindness who has presented to [facility] on 11/07/2024 with worsening shortness of breath,
and was subsequently admitted for acute hypoxic respiratory failure following new CHF diagnosis. Cardiology following and recommended ischemic evaluation and he underwent cardiac catheterization on 11/10/2024. He also required 2 arterial blood gas
readings to monitor hypoxic state on 11/11 and 11/13, he notes following the cardiac cath (or shortly there after he cannot specifically recall the day) he began having redness and pain over his forearm, which has significantly increased over time. He
endorses forearm is tender to touch and warm. He denies any accompanying hand pain, hand coolness, paraesthesia, or hand motor changes. Arterial US was obtained demonstrating right radial artery occlusion at the level of the mid and distal forearm
with right ulnar artery is patent. Patient is known to our service for history of left BKA.
Past Vascular Surgical History:
05/24/19- Left ultrasound-guided common femoral artery puncture. Right lower extremity arteriogram with third-order catheterization. Angioplasty and stent of the right SFA and popliteal artery using a 6 x 140 Zilver PTX. Angioplasty of the popliteal
artery using a 4 mm angioplasty balloon. Angioplasty of the peroneal artery using a 2.[address] Galarza
07/05/22- 1. Aortogram and pelvic angiogram. Left lower extremity arteriogram. Third order vessel catheterization of left common femoral artery via right common femoral artery puncture. Left distal superficial femoral artery/popliteal artery
[id number] balloon angioplasty and stent with 6 mm x 4 cm Zilver PTX stent. Left mid superficial femoral artery 6 mm x 8 cm Zilver PTX stent placement. Balloon angioplasty of left peroneal/TP trunk/below-knee popliteal artery with 3 mm
angioplasty balloon. Balloon angioplasty/stent placement left proximal superficial femoral artery with 5 mm angioplasty balloon followed by [address] Zilver [address]X stent[address] Dr. Waldron
11/23/22- Left below the knee amputation Dr. Waldron
Past Medical History
Past Medical History: Other (DM, DVT/PE, psoriasis, protein C&S deficiency on Coumadin, CAD, PAD, and blindness)
Past Surgical History: Other (Left hip replacement, Right arteriogram with SFA and popliteal artery stent (2019)) and Other Right syme amputation, cardiac catheterization with intervention)
Social History
Tobacco: Non-Smoker
Alcohol: None
Drug: None
Personal:
Living: With Family
Allergies / Home Medications
Allergy/AdvReac Type Severity Reaction Status Date / Time
pregabalin (From Lyrica) Allergy Unknown Verified 11/07/24 18:25
�Medication �Instructions �Recorded �Confirmed �Type
atorvastatin 10 mg tablet 10 mg PO DAILY High cholesterol 05/23/19 11/07/24 History
aspirin 81 mg chewable tablet 81 mg PO DAILY #0 tabs 07/14/22 11/07/24 Rx
insulin glargine U-300 conc 300 40 unit SC HS Diabetes 03/01/23 11/07/24 History
unit/mL (3 mL) subcutaneous pen
(Toujeo Max U-300 SoloStar)
insulin aspart U-100 100 unit/mL 1 sliding scale dose SC 11/07/24 11/07/24 History
subcutaneous solution (Novolog DIRECTED Diabetes
U-100 Insulin aspart)
warfarin 2 mg tablet 2 mg PO SUMOWEFRSA Blood Clot 11/07/24 11/11/24 History
Prevention/Tx
warfarin 3 mg tablet 3 mg PO TUTH Blood Clot 11/07/24 11/11/24 History
Prevention/Tx
Review of Systems
-
History Source: Patient
Constitutional: Reports No Symptoms
EENT: Reports No Symptoms
Respiratory: Reports Trouble Breathing
Cardiac: Reports No Symptoms
Abdomen/GI: Reports No Symptoms
: Reports No Symptoms
Musculoskeletal: Reports No Symptoms
Skin: Reports Other (erythema, pain, and warmth at mid forearm )
Neurological: Reports No Symptoms
Endocrine: Reports No Symptoms
Physical Exam
Vital Signs
Temp Pulse Resp BP Pulse Ox
97.6 F 72 17 129/81 96
11/18/24 10:58 11/18/24 12:00 11/18/24 12:00 11/18/24 10:08 11/18/24 13:06
Lab Results
11/18/24 03:50
11/18/24 03:50
Troponin I 0.066 ng/ml H* 11/10/24 14:00
Qoa-J-Nhjtksyvubo Pept 9260 pg/ml 11/07/24 19:19
Physical Exam
General: No Apparent Distress
HEENT: Normocephalic, Anicteric and Atraumatic
Respiratory: Non Labored Respirations
Cardiac: Negative JVD
GI: Non Distended
Musculoskeletal: No Edema
Skin: Warm, Dry and Other (right hand warm, cap refill less than 3 seconds, motor and sensation intact, erythma and warmth over forearm)
Neuro: Awake and Alert
Assessment / Plan
-
Assessment: 68 year old male s/p right heart cath on 11/11/24 found to have right radial occlusion on US with patent ulnar
Plan:
Given he has ultrasound evidence of patent ulnar artery and right hand with no physial exam evidence of ischemia would not recommend with surgical intervention at this time. Patient seen and examined with attending Dr. Francisco Javier Waldron who agreess with
plan.
[2024-11-18 16:52] LABS: Glucose - Point of Care 226 mg/dl (70-99)
--- NOTE | 2024-11-18 16:55 | PTCARENOTE ---
Rec'd pt this AM. Pt has clot in right arm. per Dr. Waldron, OK to keep midline in upper arm on that side. Pt using urinal with good urine output. 2L NC placed as pt desat on RA.
--- NOTE | 2024-11-18 17:23 | PTCARENOTE ---
Placed pt on 2L NC for O2 sat 86% on RA. at bedside.
[2024-11-18] MEDS: NOVOLOG FLEXPEN-MODERATE RESISTANCE 3 UNITS SC (17:43)
[2024-11-18] MEDS: LIPITOR 40 MG PO (17:44)
[2024-11-18] MEDS: COUMADIN 1 MG PO (17:44)
[2024-11-18 21:43] LABS: Glucose - Point of Care 232 mg/dl (70-99)
[2024-11-18] MEDS: LANTUS 0.32 UNITS SC (22:16)
[2024-11-19] VITALS (13 sets, daily range): BP systolic 109–156; BP diastolic 45–96; PULSE 62; O2SAT 93–96; BMI 37.5; BMI 37.1
--- NOTE | 2024-11-19 03:41 | PTCARENOTE ---
Received pt at change of shift. Pt in good spirits; at bedside. C/o pain in right wrist; pain in right leg when touched but it is not new. Pt desatted to 82% on RA; [address] with pulse ox at 99%. Resting in bed with call read in
reach.
[2024-11-19 04:53] LABS: INR 2.47; PT 26.8 Sec (11.4-14.6)
[2024-11-19 05:05] LABS: Blood Urea Nitrogen 45 mg/dl (9-20); Calcium 8.9 mg/dl (8.4-10.2); Carbon Dioxide 38 mmol/L (22-30); Chloride 96 mmol/L (98-107); Estimated Creatinine Clearance 69 ml/min; Glucose 182 mg/dl (70-99); Potassium 4.4 mmol/L (3.5-5.1); Sodium 138 mmol/L (135-145); eGFR 54.07
--- NOTE | 2024-11-19 07:22 | CON.MD ---
Consultation - Medical
-
Chief Complaint:�Difficulty walking with acute heart failure
�
History of Present Illness:�68-year-old male with PMH (as below) presented to [facility] on 11/07/2024 with a 2-week history of worsening shortness of breath, right-sided abdominal pain, increased bilateral lower extremity edema and poor
appetite. He was found to have acute hypoxic respiratory failure secondary to new onset CHF, requiring 4 L of O2 and he was started on diuretics. BNP elevated at 9260. Hypertensive. INR was supratherapeutic over 8 and given 1 mg of vitamin K.
He also had chest pain with troponin of 0.073 and inferior T wave inversions and diagnosed with NSTEMI. Switch to heparin drip for cardiac catheterization. Noted with right pleural effusion on CT status post right thoracentesis 11/11/2024. Left
heart cath 11/11/2024 noting significant multivessel coronary artery disease. There were no PCI targets. He was evaluated for a CABG but is not a candidate because of his comorbidities. CT of the abdomen for right-sided pain with no significant
acute process, diverticulosis, cholelithiasis. Noted with hypercapnia and seen by pulmonary. Thought to have bilateral pleural effusion secondary to volume overload from CHF. Suspected to have obstructive sleep apnea and/or obesity
hypoventilation syndrome. Will need outpatient sleep study, but patient refuses study. Given BiPAP in the hospital. Echocardiogram noting EF 30-35% down from 61% in 2022 with globally hypokinetic left ventricle. Noted with elevated creatinine
thought secondary to contrast-induced nephropathy. Seen by nephrology with diuretics and Entresto held, UA with proteinuria likely secondary to diabetic nephropathy. Developed right wrist pain with concern for cellulitis. Seen by infectious
disease and felt to have right radial artery radius from AVG stick and cardiac cath dye. Applying warm compress and no antibiotics at this time. Developed thrombocytopenia, on warfarin and heparin stopped. Right wrist ultrasound noting occluded
radial artery at the mid and distal forearm level. Vascular surgery consulted. Continue with warm compress, pain thought to be secondary to thrombosed radial artery. No neuromuscular compromise and vascular signed off.
Was doing outpatient therapy and making good progress until he started having fatigue concerns and trouble fitting into his prosthetics. Was doing outpatient therapy at [place]. Currently feeling deconditioned but looking forward to getting to
rehab and then back home.
�
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
Procedure History:Right distal foot amputation, left distal SFA, mid SFA, proximal SFA stents x3, left peroneal artery/tibialis posterior trunk angioplasty, cardiac stents, left transtibial amputation 11/23/2022.
Family History:�None pertinent
�
Social History:�
Functional Level Premorbidly:�Independent with upper body dressing and toileting. assist with lower body dressing and donning of prosthetic. She helps with sponge bathing and homemaking. Ambulating with rolling walker and bilateral lower
extremity prosthetics.
Functional Level Currently:�Dependent lower extremity dressing, mod assist of 2 for bed mobility with right upper extremity nonweightbearing at the wrist. Supervision to min assist for sitting balance edge of bed. Decreased endurance,
deconditioning and general weakness with impaired balance and decreased activity tolerance with therapy suggesting acute rehab.
�
Tobacco:�Denies�
Alcohol:�Denies�
Drug use:�Denies�
�
Lives with:�Spouse
24-hour assistance available:�Yes
Number of floors:�2
# steps to enter:�Ramp to enter
# steps to second floor: Full flight, stays on first floor
Potential First floor set up:�Yes
Driving:�No
Occupation:�Retired
�
�
Allergies:�
Allergy/AdvReac Type Severity Reaction Status Date / Time
pregabalin (From Lyrica) Allergy Unknown Verified 11/07/24 18:25
�
Review of Systems:�
Constitutional: (x) abNormal _ fatigue
Eye: (x) abNormal _ vision better in eye with higher blood pressure.
Ear/Nose/Throat: (x) Normal _
Respiratory: (x) Normal _
Cardiovascular: (x) abNormal _heart failure and CAD on cath
Gastrointestinal: (x) Normal _
Genitourinary: (x) Normal _
Musculoskeletal: (x) Normal _
Integumentary: (x) Normal _
Neurologic: (x) Normal _
Psychiatric: (x) Normal _
Endocrine: (x) Normal _
Hematologic/Lymphatic: (x) Normal _
Allergic/Immunologic: (x) Normal _
�
Medications:�
Active Current Visit Medication List
Category Date Time Status
Acetaminophen [Tylenol] Med 11/17/24 19:28 Active
1,000 mg PO Q6HPRN PRN
Aspirin Chewable [Low Strength Aspirin] Med 11/08/24 08:00 Active
81 mg PO DAILY
Atorvastatin [Lipitor] Med 11/12/24 18:00 Active
40 mg PO QPM
Carvedilol [Coreg] Med 11/17/24 08:30 Active
6.25 mg PO BID
Dextrose 50%-Water [Dextrose 50% Syringe] Med 11/07/24 22:23 Active
12.5 grams IV H35NOHC PRN
Flush (0.9% Sodium Chloride) [Flush (Nss)] Med 11/07/24 22:00 Active
See Dose Instructions IV PER PROTOCOL
Furosemide [Lasix] Med 11/17/24 11:00 Active
80 mg IV DAILY
Glucagon [GlucaGen] Med 11/07/24 22:23 Active
1 mg IM PRN PRN
HydrALAZINE [Apresoline] Med 11/07/24 22:23 Active
10 mg IV Q4HPRN PRN
ISOSORBIDE MONOnitrate ER [Imdur (Extended Release)] Med 11/16/24 09:00 Active
30 mg PO DAILY
Insulin Aspart Corrective Mod [Novolog Flexpen-Moderate Med 11/13/24 16:30 Active
Resistance]
See Protocol SC AC
Insulin Glargine Lantus [Lantus] 32 units Med 11/15/24 22:00 Active
Subcutaneous Insulin Syringe [Syringe-Insulin] 0 unit
SC HS
Ipratropium/Albuterol Sulfate [Duoneb] Med 11/08/24 08:54 Active
3 ml INH R Q4HPRN PRN
Magnesium Oxide Med 11/13/24 16:00 Hold
500 mg PO DAILY
Miconazole Nitrate [Desenex/Mitrazol/Zeasorb] Med 11/08/24 08:00 Active
See Dose Instructions TOPICAL BID
Nitroglycerin Sublingual [Nitrostat (Sublingual)] Med 11/07/24 20:34 Active
0.4 mg SL [id number] PRN
Potassium Chloride [KCl] Med 11/13/24 16:00 Hold
20 meq PO DAILY
Sacubitril 24/Valsartan 26 [Entresto 24 mg/26 mg] Med 11/12/24 13:00 Hold
1 tab PO BID
Sennosides [Senokot] Med 11/14/24 10:00 Active
8.6 mg PO BID
Warfarin [Coumadin] Med 11/18/24 18:00 Active
1 mg PO QPM
�
Vitals:�
Temp Pulse Resp BP Pulse Ox
97.5 F 76 25 120/85 97
11/19/24 03:31 11/19/24 04:00 11/19/24 04:00 11/19/24 02:00 11/19/24 00:00
Height 6 ft 1 in
Actual Weight 129 kg
Body Mass Index (BMI) 37.5
�
Physical Exam:�
General Appearance/Observation: Well-developed, well-nourished male in no apparent distress.
Pain/Comfort Assessment: Right wrist pain
Mood/Affect: Appropriate
Integumentary/Operative Site: Left transtibial amputation site well-healed.
-Has significant psoriasis all over the body.�
-Right leg with dry flaking skin.
Eyes: Conjunctiva/Lids: Right eye absent��� pupils: Left pupil round
Ears/Nose/Throat: oral mucosa moist,� throat clear.������������� Lips/Teeth/Gums: normal
Cardiovascular: Heart: regular, no murmur
Respiratory: Respiratory Effort/Chest Expansion: normal ������ Auscultation: Clear to auscultation bilaterally
Gastrointestinal: abdomen not tender, no distension, normal abdominal bowel sounds
Genitourinary: No Rowley
Extremities:�Edema: Left residual limb swelling�cyanosis: None�Trophic�changes: None
-Right lower extremity amputation at the level of the calcaneus, has right AFO brace.
Neurology Exam:
Orientation: Alert, Oriented to self, Time, Place
Memory: Intact
Comprehension: Intact
Two step command: Intact
Cranial Nerves:
�� CN VII:�Facial movement: Symmetric
�� CN VIII:�Hearing: Normal
�� CN IX/X:�Speech & swallow: Normal,�Position of Uvula: Midline
�� CN XI:�Shoulder shrug: Symmetric
�� CN XII:�Tongue protrusion: Midline
Sensory:
�� Light touch: Intact in bilateral upper extremities
Cerebellar: Dysmetria/Ataxia: None
Musculoskeletal: � Motor: (Manual muscle scale 0-5)
� � �
Muscle� � � ���SA�� � ���EF� � � ���WE� � � ���EE� � � ���FF� � � ���FA� � � ���HF� � � ���KE� � � ���DF� � � ���EHL� � � ���PF�� �
� � ��Right� ���� � ���5�� � � � ���5�� � � � ���5�� � � � ���5�� � � � ���5�� � � � � � � � � � ���5�� � � � ���5�� � � � ���5�� � � � ���-�� � � � ���5� � � �
� � ��Left�� � ���5� � � ���5� � � ���5� � � ���5� � � ���5� � � �� � � � ���4� � � ���4� � � ���-� � � ���-� � � ���-�� �
� � � �� �� �� �� �� �� �� �� �� �� �� �
Tone: Normal in all extremities
Range of Motion: Passively within functional limits in all extremities
�
Lab Results
Laboratory Data
11/18/24 03:50
11/19/24 04:23
PT 26.8 Sec (11.4-14.6) H 11/19/24 04:23
INR 2.47 11/19/24 04:23
APTT 139.9 Sec (23.4-35.0) H 11/14/24 05:01
Total Bilirubin 1.2 mg/dl (0.2-1.3) 11/07/24 19:19
AST 23 U/L (17-59) 11/07/24 19:19
ALT 23 U/L (0-50) 11/07/24 19:19
Alkaline Phosphatase 78 U/L (38-126) 11/07/24 19:19
Total Protein 6.1 g/dl (6.3-8.2) L 11/11/24 05:42
Albumin 3.7 g/dl (3.5-5.0) 11/07/24 19:19
�
Diagnostic Results:�as per HPI�
�
Assessment
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
multivessel disease but not candidate for CABG, acute CHF with pleural effusions status post right thoracentesis, acute kidney injury thought secondary to diuresis and dye, right radial artery occlusion with pain limiting activity, concern for GLEN
obesity hypoventilation syndrome���resulting in ADL and ambulatory dysfunction.
�
Plan�
PM&R�PT/OT to increase independence with ADLs, improve balance, coordination, endurance, strength, mobility, community reintegration, decreased burden of care on others and family education.�
Acute CHF: EF 30-35%, beta mich, monitor fluid status. Discussed monitoring weight.
Old Left transtibial Amputation: Monitor skin, has had volume fluctuation and many revisions to the socket. Needs to keep CHF under control.
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 Needs to keep CHF under control.
Protein C&S deficiency: Has had numerous complications including DVT, PE, blindness, numerous amputations, CAD.� On aspirin and warfarin.
HTN: Not taking medication, monitor
HLD: Statin
Coronary artery disease: Aspirin, statin, not on beta-mich. Multivessle disease on cath this admission. Not a surgical candidate for CABG, medical mangement.
Peripheral artery disease: Aspirin, statin, warfarin
DM II: Accu-Cheks, insulin sliding scale, aspart, lantus.
Chronic anemia: Hemoglobin normal.
FEN:�carb controlled diet
Psych: Psychology consult.� Monitor mood, medications as needed.
Skin: monitor for pressure sores/rashes/lesions.� Uses triamcinolone cream for psoriasis.� Monitor.
Pain: acetaminophen or oxycodone 20 mg as needed.�
Bowel: MiraLAX and Senna, PRN bisacodyl.
Bladder: Monitor urine output
DVT Prophylaxis: Coumadin goal INR 2.5-3, INR 2.78 on 03/11 and 03/12.� Current regimen of 2 mg daily except 3 mg on Mon/Wed/Fri.
Morbid obesity: Continue to counselor marriage and family patient about diet adjustments to control obesity. Body habitus and increased force to move body and extremities causes further difficulty with functional tasks.
Safety: Continue to reinforce assistance with all transfers.
Code Status:� Full code
Dispo�(date/plan/equipment needs): Home with family care.
Functional and Medical Goals:�Return to baseline functioning. Was able to walk 700 feet with walker. manages LE dressing.
Discharge Destination:�Acute inpatient rehabilitation to manage CHF, adjust prosthesis as needed and return to baseline. Needs extra assistance with vision loss.
�
Thank you for allowing me to care for your patient. Please contact me with any questions or concerns.
Consultation
-
Date/Time Consultation Performed: 11/19/24
Requesting Provider: Dr. Andrez Orellana
Performing Provider: Dr. Rogerio Johnson
Reason for Consultation: Rehabilitation placement
[2024-11-19 08:06] LABS: Glucose - Point of Care 176 mg/dl (70-99)
[2024-11-19] MEDS: NOVOLOG FLEXPEN-MODERATE RESISTANCE 1 UNITS SC (09:20)
[2024-11-19] MEDS: COREG 6.25 MG PO ×2 (09:21→20:45)
[2024-11-19] MEDS: IMDUR (EXTENDED RELEASE) 30 MG PO (09:21)
[2024-11-19] MEDS: LOW STRENGTH ASPIRIN 81 MG PO (09:21)
[2024-11-19] MEDS: SENOKOT 8.6 MG PO (09:21)
[2024-11-19] MEDS: LASIX 80 MG IV (09:21)
[2024-11-19] MEDS: DESENEX/MITRAZOL/ZEASORB 1 APPLIC TOPICAL ×2 (09:22→20:48)
--- NOTE | 2024-11-19 10:49 | PTCARENOTE ---
POx alarming 85% found sleeping. Jennifer to 93% when awake.
--- NOTE | 2024-11-19 11:01 | W.PN.HOSP.TC ---
Today's Communication/Plan
-
adjust coumadin dosing
transfer to tele
Assessment / Plan
Assessment / Plan
Assessment:
Acute on suspected chronic hypoxic and hypercapnic respiratory failure due to acute CHF (Pneumonia was ruled out)
- 98% on room air
- weaned BiPAP; now using prn HS
- prn nebs
- pulm signed off 11/14
Acute on chronic HFrEF
significantly improved
- resumed IV Lasix 80 mg daily as per cardio
Creat 2.6-->2.1-->1.8-->1.6-->1.4
- Echo: EF now 35% from 60%
- GDMT: Coreg 6.25 bid/Entresto remains on hold
with continued chest pain, card would like to increase Coreg to 6.25 mg, which was done and he is now stating he has less chest pain
BRODERICK
Metabolic alkalosis
- likely KENNY
- Nephrology following
- remains off nephrotoxins
- monitor I/Os, bladder scans
acute R pleural effusion from acute CHF
- s/p thoracentesis 11/11; 800 cc removed.
type 2 NSTEMI
CAD s/p stents 2014
- LHC: severe multivessel coronary artery disease, there is no PCI targets per Cardiology. CT surgery also evaluated and patient felt a poor surgical candidate
- continue medical management: ASA/Statin/BB/Imdur
Right sided abdominal pain
- CT abdomen pelvis showed: No significant acute process in the abdomen or pelvis. Diverticulosis coli. Cholelithiasis.
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
Supratherapeutic INR previously, now perfect
- continue Coumadin, will order 2 mg daily with INR now 2.99-->3.24-->3.0-->2.47
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
Hx Right partial foot amputation
- PT/OT - SNF rehab
monitor noted 7 beat run of asymptomatic V-Tach
cardio made aware
Rt wrist pain
area of pain is very tender, red, but not warm. US: FINDINGS and IMPRESSION: Right radial artery is patent at the level of the proximal forearm. Right radial artery is occluded at the level of the mid and distal forearm.
Right ulnar artery is patent. Normal multiphasic waveform is seen at the level of the proximal forearm, and a monophasic waveform is seen at the level of the distal forearm.
Input of Dr. Waldron appreciated, thrombosed RT radial artery
History of diabetes mellitus
- Continue home medication
- Insulin sliding scale
- Diabetic diet
- Hemoglobin A1c 5.6%
- Toujeo 25 units continued
glu 176-253
continue current insulin dosing with improving renal fxn, may need to adjust moving forward
Accelerated essential hypertension
- Blood pressure acceptable
129/81
Hypokalemia - resolved, 4.0-->4.4
DVT ppx: Coumadin
Code: Full
time on complex management 55 minutes
Cardio has cleared pt to be transferred to tele,will transfer now
Anticipated Discharge: > 48 hours
Subjective/Interval History
-
Date of Service: November 19, 2024
chest heaviness has lessened
Objective Data
-
Labs:
Laboratory Results
11/19/24
04:23
PT 26.8 H
INR 2.47
Sodium 138
Potassium 4.4
Chloride 96 L
Carbon Dioxide 38 H
BUN 45 H
Creatinine 1.4 H
Glucose 182 H
Calcium 8.9
Vital Signs:
Vital Signs
Temp Pulse Resp BP Pulse Ox
97.8 F 70 26 123/67 88
11/19/24 08:21 11/19/24 10:42 11/19/24 10:42 11/19/24 10:42 11/19/24 10:42
I&O
11/18/24 11/19/24 11/20/24
06:59 06:59 06:59
Intake Total 480 / 480
Output Total 1100 / 1100 1875 / 1875
Balance -1100 / -1100 -1395 / -1395
Review of Systems
-
History Source: Patient and Coordinated Provider (reviewed with MIKAELA Paulino)
Respiratory: Reports No Symptoms; Denies Trouble Breathing
Cardiac: Reports Chest Pain (heaviness has lessened)
Abdomen/GI: Reports No Symptoms
Musculoskeletal: Reports Other (rt wrist pain has not resolved, but may be slightly less intense)
Neuro: Reports No Symptoms
Physical Exam
-
General: No Apparent Distress
HEENT: Normocephalic and Atraumatic
Respiratory: Negative Wheezes
Cardiac: Regular Rhythm and S1/S2
GI: Soft and Nontender
Musculoskeletal: Edema, Right Lower Extrem and Other (left BKA, rt wrist in area of pain, over radial artery is red, but has decreased but not warm, Rt foot transmetatarsal amputation)
Skin: Rash (rt wrist less intense)
Neuro: AO x 3
Psych: Calm
--- NOTE | 2024-11-19 11:08 | W.PN.CARDCBS ---
Addendum entered and electronically signed by Ryan Henao DO 11/19/24 12:30:
I saw and examined the patient.
The Hospital Social Worker's note was reviewed and I agree with the note.
Comment:
Plan:
Cont IV diuresis
Wt coming down and cr improving.
Cont to adjust GDMT for ischemic CM
Entresto started
New to Coreg this admit
Cont medical management of CAD. Not felt to be surgical candidate and poor PCI targets and not felt to be CT surgery candidate
-New to Imdur ER 30 mg daily on 11/16/2024 and no recurrence of chest pain
Patient with right radial artery occlusion on U/S 11/18/2024. The ulnar artery is patent. Vascular surgery consultation appreciated, no intervention planned.
More rehab being considered
Original Note:
Today's Communication / Plan
-
Restart Entresto 24/26 mg BID, ordered by me
Impression / Plan
-
PCP: Dr. Bairon Winchester
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 Keating
Assessment:
Presented with SOB 11/07/2024
Acute hypoxic respiratory failure
Acute on chronic HFrEF
Ischemic CM EF 30 to 35%
Hypertensive urgency, improved
NSTEMI, peak Troponin 0.073
R pleural effusion
s/p thoracentesis for 800 cc 11/11/2024
CAD
s/p BMS to RCA at [place]'s 03/2013
MV CAD by cath 11/11/2024
PVD
s/p LLE stenting per patient 2013
LLE gangrene s/p L BKA
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
Left distal SFA, mid SFA, proximal SFA stents x3, left peroneal artery/TP trunk angioplasty 06/2022
h/o clotting disorder, pt believes protein C&S deficiency, on chronic Coumadin
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
Legally blind, secondary to hypercoagulable state, s/p R eye removal 1985
Chronic SOB, secondary to history of L collapsed lung secondary PE and hypercoagulable state
Obesity
HLD
DM2
Diabetic neuropathy
Psoriasis
L hip replacement 1985
Right radial occlusion on u/s 11/18/24
Cardiac catheterization 11/11/2024: LM: Diffuse 50% stenosis with significant pressure damping of about 30 to 40 mmHg upon selective engagement with 5 Serbian catheter. LAD: Mid diffuse 70 to 80% stenosis banding across takeoff of 2 diagonal
branches. D2 small caliber with 60 to 70% ostial stenosis. D3 very small caliber with 70 to 80% ostial stenosis. Robust [id number] collaterals. Left circumflex: 70% proximal stenosis at OM1 takeoff. RCA: 100% in-stent chronic total occlusion
with [id number] collaterals.
Echo 07/13/2022: Technically difficult study, Definity used, EF 61%, no gross segmental wall motion abnormalities, mild concentric LVH, no significant valvular pathology within the limits of study
Echo 11/08/2024: Moderately reduced systolic function, global hypokinesis, EF 30-35%, G3 DD, normal RV size and function, mild mean gradient 11 mmHg, trace TR PASP 24 mmHg
Plan:
-Patient with SOB and hypoxia on admission in the setting of acute HFrEF, new ICM and NSTEMI.
-Patient weighed 289 lbs on admission and weighs 289 lbs 11/18/24. Weight peaked at 293 lbs on 11/12/24. Patient diuresed with initially Lasix 40 mg IV BID and then briefly increased to Lasix 80 mg IV BID, but then held due to BRODERICK. Most recently
ordered Lasix 80 mg IV daily starting 11/17/2024. Patient was not taking a loop diuretic prior to admission
-EF 30 to 35% by echo 11/08/2024 and is being managed as ICM
-New to Coreg 6.25 mg BID this admission
-Cre continues to improve and is 1.4 on labs reviewed by me 11/19/2024. Patient was not taking JESSICA/ARB/ARNI/aldosterone antagonist prior to admission. Entresto 24/26 mg BID started and stopped earlier this admission due to post cath BRODERICK. Restart
Entresto 24/26 mg BID 11/19/24, ordered by me. Patient and agreeable to higher initial upfront cost of Entresto and expect the cost will drop once they meet their deductible.
-Patient manage as NSTEMI with peak troponin 0.073 this admission.
-Outpatient dose of aspirin 81 mg daily continued. Not sure if there is a role for switching to Plavix given NSTEMI
-Patient is also chronically on warfarin and INR is therapeutic at 2.47 on labs reviewed by me 11/19/2024
-LDL 44 an outpatient dose of atorvastatin was increased to 40 mg daily this admission
-Patient is not a candidate for cardiac rehab at this time because he needs ongoing work with PT and his prosthesis, More rehab is being considered and that would be patient and preference as well
-Plan is for medical management of CAD. Not felt to be surgical candidate and poor PCI targets and not felt to be CT surgery candidate
-Patient with right radial artery occlusion on U/S6 2324. The ulnar artery is patent. Vascular surgery consultation reviewed by me and no intervention planned.
-New to Imdur ER 30 mg daily on 11/16/2024 and no recurrence of chest pain
Progress Note - Outboard Motor Assembler
Subjective
Date of Service: November 19, 2024
Right wrist is uncomrfotable at times, no chest pain
Objective
Labs:
11/18/24 03:50
11/19/24 04:23
Labs
Hgb 11.1 g/dL (13.0-18.0) L 11/18/24 03:50
Hct 34.9 % (39.0-52.0) L 11/18/24 03:50
Plt Count 80 10^3/uL (130-400) L 11/18/24 03:50
PT 26.8 Sec (11.4-14.6) H 11/19/24 04:23
INR 2.47 11/19/24 04:23
APTT 139.9 Sec (23.4-35.0) H 11/14/24 05:01
Sodium 138 mmol/L (135-145) 11/19/24 04:23
Potassium 4.4 mmol/L (3.5-5.1) 11/19/24 04:23
BUN 45 mg/dl (9-20) H 11/19/24 04:23
Creatinine 1.4 mg/dL (0.7-1.3) H 11/19/24 04:23
Glucose 182 mg/dl (70-99) H 11/19/24 04:23
Vital Signs and I&O:
Vital Signs
Temp Pulse Resp BP Pulse Ox
97.8 F 70 26 123/67 88
11/19/24 08:21 11/19/24 10:42 11/19/24 10:42 11/19/24 10:42 11/19/24 10:42
Vital Signs
Temp Pulse Resp BP Pulse Ox
97.8 F 70 26 123/67 88
11/19/24 08:21 11/19/24 10:42 11/19/24 10:42 11/19/24 10:42 11/19/24 10:42
Intake & Output
11/17/24 11/18/24 11/19/24 11/20/24
06:59 06:59 06:59 06:59
Intake Total 970 / 970 480 / 480
Output Total 450 / 450 1100 / 1100 1875 / 1875
Balance 520 / 520 -1100 / -1100 -1395 / -1395
Physical Exam
Physical Exam
GEN: AAOx3
LUNGS: RA. No audible wheeze
CV: SR on tele.
EXT: L BKA, R AKA noted
NEURO: Gross non-focal
SKIN: Warm, dry, no rash
[2024-11-19 12:09] LABS: Glucose - Point of Care 218 mg/dl (70-99)
[2024-11-19] MEDS: NOVOLOG FLEXPEN-MODERATE RESISTANCE 3 UNITS SC ×2 (12:47→18:13)
[2024-11-19] MEDS: ENTRESTO 24 MG/26 MG 1 TAB PO ×2 (12:47→20:44)
--- NOTE | 2024-11-19 12:53 | W.PN.NEPH.PH ---
Today's Communication / Plan
-
Diuretics
Assessment/Plan
-
Impression:
BRODERICK
Metabolic Alkalosis
Acute hypoxic respiratory failure on presentation due to new onset of congestive heart
Ischemic CM EF 30 to 35%
HTN
Type II NSTEMI
R pleural effusion
LLE gangrene s/p L BKA
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
Legally blind, secondary to hypercoagulable state, s/p R eye removal 1985
Chronic SOB, secondary to history of L collapsed lung secondary PE and hypercoagulable state
Obesity
HLD
DM2
Diabetic neuropathy
Psoriasis
L hip replacement 1985
Plan:
BRODERICK: cr better at 1.8>1.6>1.4
- Likely due to contrast mediated renal failure following cardiac catheterization 11/11 and hypotension on 11/13
postvoid bladder scans were with negligible residual
Lasix and Entresto restarted
-
-
Date of Service: November 19, 2024
CC / HPI / ROS
-
Chief Complaint:
BRODERICK
History of Present Illness:
cr better at 1.8, UOP not measured, k normal
BP stable , met alkalosis bicarb 36
off O2
plt low 75k
Review of Systems:
no sob at rest
no n/v
no abd pain
Labs
-
Labs:
WBC 6.0 10^3/uL (4.8-10.8) 11/18/24 03:50
RBC 4.08 10^6/uL (4.70-6.10) L 11/18/24 03:50
Hgb 11.1 g/dL (13.0-18.0) L 11/18/24 03:50
Hct 34.9 % (39.0-52.0) L 11/18/24 03:50
Plt Count 80 10^3/uL (130-400) L 11/18/24 03:50
Sodium 138 mmol/L (135-145) 11/19/24 04:23
Potassium 4.4 mmol/L (3.5-5.1) 11/19/24 04:23
Chloride 96 mmol/L (98-107) L 11/19/24 04:23
Carbon Dioxide 38 mmol/L (22-30) H 11/19/24 04:23
BUN 45 mg/dl (9-20) H 11/19/24 04:23
Creatinine 1.4 mg/dL (0.7-1.3) H 11/19/24 04:23
eGFR 54.07 11/19/24 04:23
Glucose 182 mg/dl (70-99) H 11/19/24 04:23
Calcium 8.9 mg/dl (8.4-10.2) 11/19/24 04:23
Owj-I-Rzfzutnqzyc Pept 9260 pg/ml 11/07/24 19:19
Albumin 3.7 g/dl (3.5-5.0) 11/07/24 19:19
Physical Exam
-
Vital Signs:
Vital Signs
Temp Pulse Resp BP Pulse Ox
97.4 F 70 26 123/67 88
11/19/24 12:13 11/19/24 10:42 11/19/24 10:42 11/19/24 10:42 11/19/24 10:42
Cardiovascular:: Regular rate and rhythm
Respiratory:: Bilateral: CTA (decreased)
Lung Excursion:: Normal
Abdomen:: Nontender and Soft
Extremity Edema:: +1: Bilateral:
Rowley Catheter: No
Other Findings::
left BKA and right TMA stump
--- NOTE | 2024-11-19 14:18 | W.PN.ID1 ---
Date of Service
Date of Service: November 19, 2024
Today's Communication
ID will sign off.
Assessment / Plan
# Distal R radial artery occlusion.
- Vascular managing.
# NSTEMI
# Acute HFrEF 30%
- 11/11 s/p cardiac cath- severe MV CAD without PCI targets
ID will sign off.
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
Type 2 diabetes
Neuropathy
Psoriasis
Protein C deficiency
DVT PE
CAD status post stent
Blind
Obesity BMI 37.8
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
Right foot TMA
Left hip replacement
Right eye enucleation
Chief Complaint
-: Other
Subjective / Review of Systems
+ wrist pain
Vital Signs / Physical Exam
Vital Signs
Vital Signs
Temp Pulse Resp BP Pulse Ox
97.4 F 70 26 123/67 88
11/19/24 12:13 11/19/24 10:42 11/19/24 10:42 11/19/24 10:42 11/19/24 10:42
Physical Exam
Constitutional: No Acute Distress
Cardiovascular: Regular Rate and S1/S2
Gastrointestinal: Soft, Non Tender and Non Distended
Extremities: Edema
Skin: Other (RUE + induration along radial artery, no erythema)
Neurological: AO x 3
Objective Data
Lab Data
Lab Results
11/18/24 03:50
11/19/24 04:23
PT 26.8 Sec (11.4-14.6) H 11/19/24 04:23
INR 2.47 11/19/24 04:23
APTT 139.9 Sec (23.4-35.0) H 11/14/24 05:01
Estimated Creat Clear 69 ml/min 11/19/24 04:23
Total Bilirubin 1.2 mg/dl (0.2-1.3) 11/07/24 19:19
AST 23 U/L (17-59) 11/07/24 19:19
ALT 23 U/L (0-50) 11/07/24 19:19
Alkaline Phosphatase 78 U/L (38-126) 11/07/24 19:19
Most recent labs reviewed.
Micro Results:
11/11/24 11:35 Body Fluid Culture - Final
Pleural Fluid No Growth After 72 Hours
Gram Stain - Final
11/07/24 21:12 Urine Culture - Final
Urine
11/08/24 00:33 MRSA Screen - Final
Nose No Methicillin Resistant Staphylococcus aureus isolated.
11/18/24 RUE arterial study: Right radial artery is patent at the level of the proximal forearm. Right radial artery is occluded at the level of the mid and distal forearm.
11/13/24 CXR: No pneumothorax. Low lung volumes. Left basilar opacity again seen without significant change which could represent subsegmental atelectasis and/for pneumonia and possible small left pleural effusion.
11/07/24 CT a/p: No significant acute process in the abdomen or pelvis. Diverticulosis coli. Cholelithiasis.
--- NOTE | 2024-11-19 14:49 | CM ---
Patient with Hx legally blind, L BKA and R foot amputation with Dx pleural effusion, CHF, NSTEMI. O2 2L last charted. Receiving IV Lasix, Coumadin. PT/OT recommend [facility]. Physiatry Consult pending.
Plan follow up after seen by Physiatry.
--- NOTE | 2024-11-19 18:01 | PTCARENOTE ---
Transferred to [facility]- present assisted with prothesis and supplies/
[2024-11-19] MEDS: LIPITOR 40 MG PO (18:16)
[2024-11-19] MEDS: COUMADIN 2 MG PO (18:17)
--- NOTE | 2024-11-19 18:43 | PTCARENOTE ---
received pt to 3W as transfer from IMU, oriented to room, tele#[id number], NSR w/PVC, VSS, call read within reach, follow plan of care
[2024-11-19] MEDS: SENOKOT PO (20:49)
[2024-11-19 21:01] LABS: Glucose - Point of Care 243 mg/dl (70-99)
[2024-11-19] MEDS: LANTUS 0.32 UNITS SC (21:46)
[2024-11-19] MEDS: DUONEB 3 ML INH (21:48)
[2024-11-20 03:00] VITALS: BP 105/55
[2024-11-20 06:00] VITALS: BMI 36.4
[2024-11-20 07:07] LABS: INR 2.39; PT 26.5 Sec (11.4-14.6)
[2024-11-20 07:21] LABS: Blood Urea Nitrogen 34 mg/dl (9-20); Carbon Dioxide 36 mmol/L (22-30); Chloride 99 mmol/L (98-107); Estimated Creatinine Clearance 73 ml/min; Glucose 157 mg/dl (70-99); Potassium 4.2 mmol/L (3.5-5.1); Sodium 139 mmol/L (135-145)
[2024-11-20 07:30] VITALS: BP 153/57
[2024-11-20 08:07] LABS: Glucose - Point of Care 158 mg/dl (70-99)
[2024-11-20] MEDS: IMDUR (EXTENDED RELEASE) 30 MG PO (08:13)
[2024-11-20] MEDS: LASIX 80 MG IV (08:14)
[2024-11-20] MEDS: LOW STRENGTH ASPIRIN 81 MG PO (08:14)
[2024-11-20] MEDS: COREG 6.25 MG PO ×2 (08:18→19:48)
[2024-11-20] MEDS: NOVOLOG FLEXPEN-MODERATE RESISTANCE 1 UNITS SC ×2 (08:19→17:20)
[2024-11-20] MEDS: ENTRESTO 24 MG/26 MG 1 TAB PO ×2 (08:20→19:48)
[2024-11-20] MEDS: DESENEX/MITRAZOL/ZEASORB 1 APPLIC TOPICAL ×2 (08:25→19:49)
[2024-11-20] MEDS: SENOKOT PO ×2 (08:27→19:49)
[2024-11-20 09:04] LABS: Glucose - Point of Care 198 mg/dl (70-99)
--- NOTE | 2024-11-20 11:23 | W.PN.NEPH.PH ---
Today's Communication / Plan
-
follow labs on diuretics
Assessment/Plan
-
Impression:
BRODERICK
Metabolic Alkalosis
Acute hypoxic respiratory failure on presentation due to new onset of congestive heart
Ischemic CM EF 30 to 35%
HTN
Type II NSTEMI
R pleural effusion
LLE gangrene s/p L BKA
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
Legally blind, secondary to hypercoagulable state, s/p R eye removal 1985
Chronic SOB, secondary to history of L collapsed lung secondary PE and hypercoagulable state
Obesity
HLD
DM2
Diabetic neuropathy
Psoriasis
L hip replacement 1985
Plan:
BRODERICK: cr better at 1.3
- Likely due to contrast mediated renal failure following cardiac catheterization 11/11 and hypotension on 11/13
postvoid bladder scans were with negligible residual
cotn Lasix per cards, wt is down and off O2
Bp are high , back on Entresto -titrate per cards
follow labs
-
-
Date of Service: November 20, 2024
CC / HPI / ROS
-
Chief Complaint:
BRODERICK
History of Present Illness:
cr better at 1.3, UOP not measured, k normal
BP stable , met alkalosis bicarb 36
off O2
plt low 80k
Review of Systems:
intermittent sob at rest
no n/v
no abd pain
Labs
-
Labs:
WBC 6.0 10^3/uL (4.8-10.8) 11/18/24 03:50
RBC 4.08 10^6/uL (4.70-6.10) L 11/18/24 03:50
Hgb 11.1 g/dL (13.0-18.0) L 11/18/24 03:50
Hct 34.9 % (39.0-52.0) L 11/18/24 03:50
Plt Count 80 10^3/uL (130-400) L 11/18/24 03:50
Sodium 139 mmol/L (135-145) 11/20/24 06:43
Potassium 4.2 mmol/L (3.5-5.1) 11/20/24 06:43
Chloride 99 mmol/L (98-107) 11/20/24 06:43
Carbon Dioxide 36 mmol/L (22-30) H 11/20/24 06:43
BUN 34 mg/dl (9-20) H 11/20/24 06:43
Creatinine 1.3 mg/dL (0.7-1.3) 11/20/24 06:43
eGFR 59.10 11/20/24 06:43
Glucose 157 mg/dl (70-99) H 11/20/24 06:43
Calcium 9.0 mg/dl (8.4-10.2) 11/20/24 06:43
Qvk-Z-Tnyweznxhqo Pept 9260 pg/ml 11/07/24 19:19
Albumin 3.7 g/dl (3.5-5.0) 11/07/24 19:19
Physical Exam
-
Vital Signs:
Vital Signs
Temp Pulse Resp BP Pulse Ox
98.4 F 68 18 153/57 96
11/20/24 07:30 11/20/24 08:14 11/20/24 07:30 11/20/24 08:14 11/20/24 07:30
Cardiovascular:: Regular rate and rhythm
Respiratory:: Bilateral: CTA (decreased)
Lung Excursion:: Normal
Abdomen:: Nontender and Soft
Extremity Edema:: +1: Bilateral: (chronic)
Rowley Catheter: No
Other Findings::
left BKA and right TMA stump
[2024-11-20 11:45] VITALS: BP 118/44
[2024-11-20 11:52] LABS: Glucose - Point of Care 213 mg/dl (70-99)
[2024-11-20] MEDS: NOVOLOG FLEXPEN-MODERATE RESISTANCE 3 UNITS SC (12:32)
--- NOTE | 2024-11-20 12:57 | CM ---
Addendum entered by Bernadette Gomez 11/20/24 15:37:
spoke with Fadia from [facility]
bed available Monday at [facility]
diuretic will be changed to oral per hospitalist
CM will start to initiate auth tomorrow after PT/OT evals
PLAN: [facility] once auth approved
Original Note:
Patient seen at bedside
Physiatry consult completed yesterday-accepted to [facility]
Spoke with Fadia at [facility], states will need to be off of IV Lasix
Spoke to patient & . Prefer [facility] [place]-Fadia aware
will need updated PT/OT notes & will need to obtain insurance auth
[facility] NPI #: [id number]
DR. JENSEN NPI #: [id number]
PLAN: [facility] when stable, will need ins auth & updated PT/OT notes
--- NOTE | 2024-11-20 14:17 | W.PN.CARDCBS ---
Addendum entered and electronically signed by Bairon Lindo MD 11/20/24 15:22:
I saw and examined the patient.
The Shorer's note was reviewed and I agree with the note.
Comment:
GEN: No distress, awake, Ox3
HEENT: supple, anicteric, mmm
LUNGS: CTA, no wheezes/rales
CV: Reg, S1/S2, /6 syst LSB, no gallop
ABD: soft, BS+, NT/ND
EXT: Left BKA
NEURO: Gross non-focal
SKIN: No rash
Plan:
He is overall doing much better. His creatinine has improved and is down to 1.3 and he is diuresed well.
Continue medical therapy for severe coronary artery disease.
Continue aspirin, atorvastatin, carvedilol, Imdur and Entresto. He has no new chest pains.
Will switch his diuretics over to Lasix 80 mg daily in AM.
He is stable for discharge to [place] rehab from cardiology standpoint.
Original Note:
Today's Communication / Plan
-
Change to Lasix 80 mg PO daily in AM
Impression / Plan
-
PCP: Dr. Bairon Winchester
Uptwist Spinner: None prior to admission, initially seen by Dr. Keating
Assessment:
Presented with SOB 11/07/2024
Acute hypoxic respiratory failure
Acute on chronic HFrEF
Ischemic CM EF 30 to 35%
Hypertensive urgency, improved
NSTEMI, peak Troponin 0.073
R pleural effusion
s/p thoracentesis for 800 cc 11/11/2024
CAD
s/p BMS to RCA at [facility] 03/2013
MV CAD by cath 11/11/2024
PVD
s/p LLE stenting per patient 2013
LLE gangrene s/p L BKA
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
Left distal SFA, mid SFA, proximal SFA stents x3, left peroneal artery/TP trunk angioplasty 06/2022
h/o clotting disorder, pt believes protein C&S deficiency, on chronic Coumadin
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
Legally blind, secondary to hypercoagulable state, s/p R eye removal 1985
Chronic SOB, secondary to history of L collapsed lung secondary PE and hypercoagulable state
Obesity
HLD
DM2
Diabetic neuropathy
Psoriasis
L hip replacement 1985
Right radial occlusion on u/s 11/18/24
Cardiac catheterization 11/11/2024: LM: Diffuse 50% stenosis with significant pressure damping of about 30 to 40 mmHg upon selective engagement with 5 Mongolian catheter. LAD: Mid diffuse 70 to 80% stenosis banding across takeoff of 2 diagonal
branches. D2 small caliber with 60 to 70% ostial stenosis. D3 very small caliber with 70 to 80% ostial stenosis. Robust hzbp-db-qtrhp collaterals. Left circumflex: 70% proximal stenosis at OM1 takeoff. RCA: 100% in-stent chronic total occlusion
with depk-sc-wlwog collaterals.
Echo 07/13/2022: Technically difficult study, Definity used, EF 61%, no gross segmental wall motion abnormalities, mild concentric LVH, no significant valvular pathology within the limits of study
Echo 11/08/2024: Moderately reduced systolic function, global hypokinesis, EF 30-35%, G3 DD, normal RV size and function, mild mean gradient 11 mmHg, trace TR PASP 24 mmHg
Plan:
-Patient with SOB and hypoxia on admission in the setting of acute HFrEF, new ICM and NSTEMI.
-Patient weighed 289 lbs on admission and weighs 276 lbs 11/19/24. Weight peaked at 293 lbs on 11/12/24. Patient diuresed with initially Lasix 40 mg IV BID and then briefly increased to Lasix 80 mg IV BID, but then held due to BRODERICK. Most recently
ordered Lasix 80 mg IV daily starting 11/17/2024. Patient was not taking a loop diuretic prior to admission. Will switch to Lasix 80 mg PO daily on 11/21/2024, orders placed by me.
-EF 30 to 35% by echo 11/08/2024 and is being managed as ICM
-New to Coreg 6.25 mg BID this admission, tolerating all doses thus far
-Entresto 24/26 mg BID started and stopped earlier this admission due to post cath BRODERICK. Restarted Entresto 24/26 mg BID 11/19/24 and Cre stable and overall improved at 1.3 on labs reviewed by me 11/20/24. Patient and agreeable to higher initial
upfront cost of Entresto and expect the cost will drop once they meet their deductible.
-Patient manage as NSTEMI with peak troponin 0.073 this admission.
-Plan is for medical management of CAD. Not felt to be surgical candidate and poor PCI targets and not felt to be CT surgery candidate
-Patient with right radial artery occlusion on U/S6 2324. The ulnar artery is patent. Vascular surgery consultation reviewed by me and no intervention planned.
-New to Imdur ER 30 mg daily on 11/16/2024 and no recurrence of chest pain
-Outpatient dose of aspirin 81 mg daily continued. Not sure if there is a role for switching to Plavix given NSTEMI
-Patient is also chronically on warfarin and INR is therapeutic at 2.47 on labs reviewed by me 11/19/2024
-LDL 44 an outpatient dose of atorvastatin was increased to 40 mg daily this admission
-Patient is not a candidate for cardiac rehab at this time because he needs ongoing work with PT and his prosthesis, More rehab is being considered and that would be patient and preference as well
Progress Note - Uptwist Spinner
Subjective
Date of Service: November 20, 2024
Feels less SOB, no CP
Objective
Labs:
11/18/24 03:50
11/20/24 06:43
Labs
Hgb 11.1 g/dL (13.0-18.0) L 11/18/24 03:50
Hct 34.9 % (39.0-52.0) L 11/18/24 03:50
Plt Count 80 10^3/uL (130-400) L 11/18/24 03:50
PT 26.5 Sec (11.4-14.6) H 11/20/24 06:43
INR 2.39 11/20/24 06:43
APTT 139.9 Sec (23.4-35.0) H 11/14/24 05:01
Sodium 139 mmol/L (135-145) 11/20/24 06:43
Potassium 4.2 mmol/L (3.5-5.1) 11/20/24 06:43
BUN 34 mg/dl (9-20) H 11/20/24 06:43
Creatinine 1.3 mg/dL (0.7-1.3) 11/20/24 06:43
Glucose 157 mg/dl (70-99) H 11/20/24 06:43
Vital Signs and I&O:
Vital Signs
Temp Pulse Resp BP Pulse Ox
97.9 F 63 18 118/44 96
11/20/24 11:45 11/20/24 11:45 11/20/24 11:45 11/20/24 11:45 11/20/24 13:19
Vital Signs
Temp Pulse Resp BP Pulse Ox
97.9 F 63 18 118/44 96
11/20/24 11:45 11/20/24 11:45 11/20/24 11:45 11/20/24 11:45 11/20/24 13:19
Intake & Output
11/18/24 11/19/24 11/20/24 11/21/24
06:59 06:59 06:59 06:59
Intake Total 480 / 480 480 / 480
Output Total 1100 / 1100 1875 / 1875 790 / 790
Balance -1100 / -1100 -1395 / -1395 -310 / -310
Physical Exam
Physical Exam
GEN: AAOx3
LUNGS: RA. No audible wheeze
CV: SR on tele.
--- NOTE | 2024-11-20 15:26 | W.PN.HOSP.TC ---
Addendum entered and electronically signed by Ty Owen MD 11/20/24 15:57:
correction, Entresto has been resumed by cardio along with Coreg
Original Note:
Today's Communication/Plan
-
continue Coumadin 2 mg daily
await cardio change diuretic to oral
Assessment / Plan
Assessment / Plan
Assessment:
Acute on suspected chronic hypoxic and hypercapnic respiratory failure due to acute CHF (Pneumonia was ruled out)
- 98% on room air
- weaned BiPAP; now using prn HS
- prn nebs
- pulm signed off 11/14
Acute on chronic HFrEF
significantly improved
- resumed IV Lasix 80 mg daily as per cardio
Creat 2.6-->2.1-->1.8-->1.6-->1.4-->1.3
- Echo: EF now 35% from 60%
- GDMT: Coreg 6.25 bid/Entresto remains on hold
with continued chest pain, card would like to increase Coreg to 6.25 mg, which was done and he is now stating he has less chest pain
BRODERICK
Metabolic alkalosis
- likely KENNY
- Nephrology following
- remains off nephrotoxins
- monitor I/Os, bladder scans
acute R pleural effusion from acute CHF
- s/p thoracentesis 11/11; 800 cc removed.
type 2 NSTEMI
CAD s/p stents 2014
- LHC: severe multivessel coronary artery disease, there is no PCI targets per Cardiology. CT surgery also evaluated and patient felt a poor surgical candidate
- continue medical management: ASA/Statin/BB/Imdur
Right sided abdominal pain
- CT abdomen pelvis showed: No significant acute process in the abdomen or pelvis. Diverticulosis coli. Cholelithiasis.
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
Supratherapeutic INR previously, now perfect
- continue Coumadin, will order 2 mg daily with INR now 2.99-->3.24-->3.0-->2.47-->2.39
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
Hx Right partial foot amputation
- PT/OT - SNF rehab
monitor noted 7 beat run of asymptomatic V-Tach
cardio made aware
Rt wrist pain
area of pain is very tender, red, but not warm. US: FINDINGS and IMPRESSION: Right radial artery is patent at the level of the proximal forearm. Right radial artery is occluded at the level of the mid and distal forearm.
Right ulnar artery is patent. Normal multiphasic waveform is seen at the level of the proximal forearm, and a monophasic waveform is seen at the level of the distal forearm.
Input of Dr. Waldron appreciated, thrombosed RT radial artery
History of diabetes mellitus
- Continue home medication
- Insulin sliding scale
- Diabetic diet
- Hemoglobin A1c 5.6%
- Toujeo 25 units continued
glu 176-253
continue current insulin dosing with improving renal fxn, may need to adjust moving forward
Accelerated essential hypertension
- Blood pressure acceptable
129/81
Hypokalemia - resolved, 4.0-->4.4
DVT ppx: Coumadin
Code: Full
time on complex management 45 minutes
Cardio has cleared pt to be transferred to [facility],discussed with CM. Potential transfer to [facility] in 2 days pending insurance aspects
Anticipated Discharge: 24 - 48 hours
Subjective/Interval History
-
Date of Service: November 20, 2024
Still with wrist pain
Objective Data
-
Labs:
Laboratory Results
11/20/24
06:43
PT 26.5 H
INR 2.39
Sodium 139
Potassium 4.2
Chloride 99
Carbon Dioxide 36 H
BUN 34 H
Creatinine 1.3
Glucose 157 H
Calcium 9.0
Vital Signs:
Vital Signs
Temp Pulse Resp BP Pulse Ox
97.9 F 63 18 118/44 96
11/20/24 11:45 11/20/24 11:45 11/20/24 11:45 11/20/24 11:45 11/20/24 13:19
I&O
11/19/24 11/20/24 11/21/24
06:59 06:59 06:59
Intake Total 480 / 480 480 / 480
Output Total 1875 / 1875 790 / 790
Balance -1395 / -1395 -310 / -310
Review of Systems
-
History Source: Patient and Coordinated Provider
Constitutional: Denies Fever
EENT: Reports No Symptoms Reported
Respiratory: Reports No Symptoms; Denies Trouble Breathing
Cardiac: Reports Chest Pain (heaviness has lessened)
Abdomen/GI: Reports No Symptoms
Musculoskeletal: Reports Other (rt wrist pain has not resolved, but may be slightly less intense)
Neuro: Reports No Symptoms
Physical Exam
-
General: No Apparent Distress
HEENT: Normocephalic and Atraumatic
Respiratory: Negative Wheezes
Cardiac: Regular Rhythm and S1/S2
GI: Soft and Nontender
Musculoskeletal: Edema, Right Lower Extrem and Other (left BKA, rt wrist in area of pain has persisted, over radial artery is red, but has decreased but not warm, Rt foot transmetatarsal amputation)
Skin: Rash (rt wrist less intense)
Neuro: AO x 3
Psych: Calm
[2024-11-20 16:00] VITALS: BP 125/56
[2024-11-20 16:59] LABS: Glucose - Point of Care 189 mg/dl (70-99)
[2024-11-20] MEDS: COUMADIN 2 MG PO (17:19)
[2024-11-20] MEDS: LIPITOR 40 MG PO (17:20)
[2024-11-20] MEDS: DUONEB 3 ML INH (18:40)
[2024-11-20 19:13] VITALS: BP 140/58
[2024-11-20 20:28] LABS: Glucose - Point of Care 191 mg/dl (70-99)
[2024-11-20] MEDS: LANTUS 0.32 UNITS SC (21:22)
[2024-11-20 23:31] VITALS: BP 138/44
[2024-11-21] VITALS (7 sets, daily range): BP systolic 107–144; BP diastolic 50–71; PULSE 67; BMI 36.7
[2024-11-21 06:25] LABS: INR 2.26; PT 25.4 Sec (11.4-14.6)
[2024-11-21 06:43] LABS: Blood Urea Nitrogen 30 mg/dl (9-20); Calcium 8.9 mg/dl (8.4-10.2); Carbon Dioxide 30 mmol/L (22-30); Chloride 103 mmol/L (98-107); Estimated Creatinine Clearance 74 ml/min; Glucose 134 mg/dl (70-99); Potassium 4.2 mmol/L (3.5-5.1); Sodium 139 mmol/L (135-145)
[2024-11-21] MEDS: LASIX 80 MG PO (07:47)
[2024-11-21] MEDS: IMDUR (EXTENDED RELEASE) 30 MG PO (07:48)
[2024-11-21] MEDS: ENTRESTO 24 MG/26 MG 1 TAB PO ×2 (07:49→21:18)
[2024-11-21] MEDS: COREG 6.25 MG PO ×2 (07:49→21:19)
[2024-11-21] MEDS: LOW STRENGTH ASPIRIN 81 MG PO (07:49)
[2024-11-21] MEDS: SENOKOT PO ×2 (07:54→21:18)
[2024-11-21] MEDS: DESENEX/MITRAZOL/ZEASORB 1 APPLIC TOPICAL ×2 (07:57→21:21)
[2024-11-21 08:00] LABS: Glucose - Point of Care 134 mg/dl (70-99)
[2024-11-21] MEDS: NOVOLOG FLEXPEN-MODERATE RESISTANCE SC ×3 (08:45→16:55)
[2024-11-21 12:55] LABS: Glucose - Point of Care 194 mg/dl (70-99)
--- NOTE | 2024-11-21 14:27 | W.PN.HOSP.TC ---
Today's Communication/Plan
-
adjust coumadin
hopefully will receive auth and will be dc to [facility]
Assessment / Plan
Assessment / Plan
Assessment:
Acute on suspected chronic hypoxic and hypercapnic respiratory failure due to acute CHF (Pneumonia was ruled out)
- 98% on room air
- weaned BiPAP; now using prn HS
- prn nebs
- pulm signed off 11/14
Acute on chronic HFrEF
significantly improved
- resumed IV Lasix 80 mg daily as per cardio
Creat 2.6-->2.1-->1.8-->1.6-->1.4-->1.3-->1.3
- Echo: EF now 35% from 60%
- GDMT: Coreg 6.25 bid/Entresto resumed
with continued chest pain, card would like to increase Coreg to 6.25 mg, which was done and he is now stating he has less chest pain
BRODERICK
Metabolic alkalosis
- likely KENNY
- Nephrology following
- remains off nephrotoxins
- monitor I/Os, bladder scans
acute R pleural effusion from acute CHF
- s/p thoracentesis 11/11; 800 cc removed.
type 2 NSTEMI
CAD s/p stents 2014
- LHC: severe multivessel coronary artery disease, there is no PCI targets per Cardiology. CT surgery also evaluated and patient felt a poor surgical candidate
- continue medical management: ASA/Statin/BB/Imdur
Right sided abdominal pain
- CT abdomen pelvis showed: No significant acute process in the abdomen or pelvis. Diverticulosis coli. Cholelithiasis.
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
Supratherapeutic INR previously, now perfect
- continue Coumadin, will order 2 mg daily with INR now 2.99-->3.24-->3.0-->2.47-->2.39-->2.26
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
Hx Right partial foot amputation
- PT/OT - SNF rehab
monitor noted 7 beat run of asymptomatic V-Tach
cardio made aware
Rt wrist pain
area of pain is very tender, red, but not warm. US: FINDINGS and IMPRESSION: Right radial artery is patent at the level of the proximal forearm. Right radial artery is occluded at the level of the mid and distal forearm.
Right ulnar artery is patent. Normal multiphasic waveform is seen at the level of the proximal forearm, and a monophasic waveform is seen at the level of the distal forearm.
Input of Dr. Waldron appreciated, thrombosed RT radial artery. Call placed and discussed with Dr. Waldron 11/21, recommend conservative management
History of diabetes mellitus
- Continue home medication
- Insulin sliding scale
- Diabetic diet
- Hemoglobin A1c 5.6%
- Toujeo 25 units continued
glu 134-194
continue current insulin dosing with improving renal fxn, may need to adjust moving forward
Accelerated essential hypertension
- Blood pressure acceptable
129/81
Hypokalemia - resolved, 4.0-->4.4-->4.2
DVT ppx: Coumadin
Code: Full
time on complex management 45 minutes
reviewed with DEONDRE Peña and by phone>35 minutes. Await insurance authorization
will resume preadmit Coumadin, BMP, Mag, INR in AM
time 60 minutes
Anticipated Discharge: 24 - 48 hours
Subjective/Interval History
-
Date of Service: November 21, 2024
Still with chest heaviness, cardio is aware. Also with wrist pain
Objective Data
-
Labs:
Laboratory Results
11/21/24
05:58
PT 25.4 H
INR 2.26
Sodium 139
Potassium 4.2
Chloride 103
Carbon Dioxide 30
BUN 30 H
Creatinine 1.3
Glucose 134 H
Calcium 8.9
Vital Signs:
Vital Signs
Temp Pulse Resp BP Pulse Ox
98.0 F 66 18 129/63 98
11/21/24 12:58 11/21/24 12:58 11/21/24 12:58 11/21/24 12:58 11/21/24 12:58
I&O
11/20/24 11/21/24 11/22/24
06:59 06:59 06:59
Intake Total 480 / 480 1040 / 1040
Output Total 790 / 790 1450 / 1450 120 / 120
Balance -310 / -310 -410 / -410 -120 / -120
Review of Systems
-
History Source: Patient and Coordinated Provider
Constitutional: Denies Fever
EENT: Reports No Symptoms Reported
Respiratory: Reports No Symptoms; Denies Trouble Breathing
Cardiac: Reports Chest Pain (heaviness has lessened, but not resolved)
Abdomen/GI: Reports No Symptoms
Musculoskeletal: Reports Other (rt wrist pain has not resolved, but may be slightly less intense)
Neuro: Reports No Symptoms
Physical Exam
-
General: No Apparent Distress
HEENT: Normocephalic and Atraumatic
Respiratory: Negative Wheezes
Cardiac: Regular Rhythm and S1/S2
GI: Soft and Nontender
Musculoskeletal: Edema, Right Lower Extrem and Other (left BKA, rt wrist in area of pain has persisted, over radial artery is red, but has decreased but not warm, Rt foot transmetatarsal amputation)
Skin: Rash (rt wrist less intense)
Neuro: AO x 3
Psych: Calm
--- NOTE | 2024-11-21 14:30 | W.PN.NEPH.PH ---
Today's Communication / Plan
-
follow labs on diuretics
Assessment/Plan
-
Impression:
BRODERICK
Metabolic Alkalosis
Acute hypoxic respiratory failure on presentation due to new onset of congestive heart
Ischemic CM EF 30 to 35%
HTN
Type II NSTEMI
R pleural effusion
LLE gangrene s/p L BKA
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
Legally blind, secondary to hypercoagulable state, s/p R eye removal 1985
Chronic SOB, secondary to history of L collapsed lung secondary PE and hypercoagulable state
Obesity
HLD
DM2
Diabetic neuropathy
Psoriasis
L hip replacement 1985
Plan:
BRODERICK: cr stable at 1.3
cotn Lasix per cards, changed to po
Bp are stable on Entresto
follow labs
will s/o, call with ?s
-
-
Date of Service: November 21, 2024
CC / HPI / ROS
-
Chief Complaint:
BRODERICK
History of Present Illness:
cr stable at 1.3, UOP not measured, k normal
BP stable , met alkalosis bicarb 30
off O2
wt is up slightly
Review of Systems:
intermittent sob at rest
no n/v
no abd pain
Labs
-
Labs:
WBC 6.0 10^3/uL (4.8-10.8) 11/18/24 03:50
RBC 4.08 10^6/uL (4.70-6.10) L 11/18/24 03:50
Hgb 11.1 g/dL (13.0-18.0) L 11/18/24 03:50
Hct 34.9 % (39.0-52.0) L 11/18/24 03:50
Plt Count 80 10^3/uL (130-400) L 11/18/24 03:50
Sodium 139 mmol/L (135-145) 11/21/24 05:58
Potassium 4.2 mmol/L (3.5-5.1) 11/21/24 05:58
Chloride 103 mmol/L (98-107) 11/21/24 05:58
Carbon Dioxide 30 mmol/L (22-30) 11/21/24 05:58
BUN 30 mg/dl (9-20) H 11/21/24 05:58
Creatinine 1.3 mg/dL (0.7-1.3) 11/21/24 05:58
eGFR 59.10 11/21/24 05:58
Glucose 134 mg/dl (70-99) H 11/21/24 05:58
Calcium 8.9 mg/dl (8.4-10.2) 11/21/24 05:58
Flt-G-Qthdjyhwfgi Pept 9260 pg/ml 11/07/24 19:19
Albumin 3.7 g/dl (3.5-5.0) 11/07/24 19:19
Physical Exam
-
Vital Signs:
Vital Signs
Temp Pulse Resp BP Pulse Ox
98.0 F 66 18 129/63 98
11/21/24 12:58 11/21/24 12:58 11/21/24 12:58 11/21/24 12:58 11/21/24 12:58
Cardiovascular:: Regular rate and rhythm
Respiratory:: Bilateral: CTA (decreased)
Lung Excursion:: Normal
Abdomen:: Nontender and Soft
Extremity Edema:: +1: Bilateral: (chronic)
Rowley Catheter: No
Other Findings::
left BKA and right TMA stump
--- NOTE | 2024-11-21 14:39 | CM ---
Patient seen at bedside
Spoke with Fadia from [facility] [place] - Bed available at [facility] tomorrow
Patient and agreeable.
[facility] NPI #: [id number]
Dr. Montalvo NPI #: [id number]
Initiated authorization - Call [id number] and spoke with Sindy
start date 11/22/24
PENDING REFERENCE #: [id number]
will send to medical scientist - Sindy will get back to
PLAN: [facility] tomorrow, pending auth approval
transportation forms on chart
[2024-11-21 16:55] LABS: Glucose - Point of Care 138 mg/dl (70-99)
[2024-11-21] MEDS: LIPITOR 40 MG PO (17:00)
[2024-11-21] MEDS: COUMADIN 3 MG PO (17:02)
[2024-11-21 20:46] LABS: Glucose - Point of Care 208 mg/dl (70-99)
[2024-11-21] MEDS: LANTUS 0.32 UNITS SC (21:19)
[2024-11-22] MEDS: DILAUDID 0.25 MG IV (00:44)
[2024-11-22 02:52] VITALS: BP 134/71
[2024-11-22 06:18] VITALS: BMI 36.6
[2024-11-22 06:18] LABS: Blood Urea Nitrogen 29 mg/dl (9-20); Calcium 8.9 mg/dl (8.4-10.2); Carbon Dioxide 29 mmol/L (22-30); Chloride 103 mmol/L (98-107); Estimated Creatinine Clearance 74 ml/min; Glucose 161 mg/dl (70-99); Magnesium 1.9 mg/dl (1.6-2.3); Potassium 4.4 mmol/L (3.5-5.1); Sodium 138 mmol/L (135-145)
[2024-11-22 07:05] VITALS: BP 138/75
[2024-11-22 07:05] LABS: INR 2.32; PT 25.6 Sec (11.4-14.6)
[2024-11-22 07:10] LABS: Glucose - Point of Care 152 mg/dl (70-99)
[2024-11-22] MEDS: ENTRESTO 24 MG/26 MG 1 TAB PO (08:13)
[2024-11-22] MEDS: IMDUR (EXTENDED RELEASE) 30 MG PO (08:13)
[2024-11-22] MEDS: NOVOLOG FLEXPEN-MODERATE RESISTANCE 1 UNITS SC ×2 (08:13→13:19)
[2024-11-22] MEDS: COREG 6.25 MG PO (08:14)
[2024-11-22] MEDS: DESENEX/MITRAZOL/ZEASORB 1 APPLIC TOPICAL (08:14)
[2024-11-22] MEDS: LASIX 80 MG PO (08:14)
[2024-11-22] MEDS: SENOKOT PO (08:14)
[2024-11-22] MEDS: LOW STRENGTH ASPIRIN 81 MG PO (08:14)
[2024-11-22 10:48] LABS: Glucose - Point of Care 196 mg/dl (70-99)
[2024-11-22 11:00] VITALS: BP 131/67
--- NOTE | 2024-11-22 11:02 | CM ---
Addendum entered by Micki Smith 11/22/24 12:56:
Ambulance picking machine operator scheduled @ 1600; and facility notified via phone
Addendum entered by Micki Smith 11/22/24 11:38:
notified of discharge plan via phone
Addendum entered by Micki Smith 11/22/24 11:29:
Keila Sherman
Report # [phone]

Original Note:
Plan: Discharge to [place] [facility] @ [facility] today; Authorization for facility and ambulance transport approved
Acute Rehab authorization # [id number] approved starting today, 11/22/2024 - 11/27/2024; for concurrent review, call #
Ambulance Authorization approved for today; Auth # [id number]
--- NOTE | 2024-11-22 13:28 | W.PN.HOSP.TC ---
Today's Communication/Plan
-
dc to [facility]
Assessment / Plan
Assessment / Plan
Assessment:
Acute on suspected chronic hypoxic and hypercapnic respiratory failure due to acute CHF (Pneumonia was ruled out)
resolved
- 98% on room air
- weaned BiPAP; now using prn HS
- prn nebs
- pulm signed off 11/14
Acute on chronic HFrEF
significantly improved
- resumed IV Lasix 80 mg daily as per cardio
Creat 2.6-->2.1-->1.8-->1.6-->1.4-->1.3-->1.3-->1.3
- Echo: EF now 35% from 60%
- GDMT: Coreg 6.25 bid/Entresto resumed
with continued chest pain, card would like to increase Coreg to 6.25 mg, which was done and he is now stating he has less chest pain
BRODERICK
Metabolic alkalosis
- likely KENNY
- Nephrology following
- remains off nephrotoxins
- monitor I/Os, bladder scans
acute R pleural effusion from acute CHF
- s/p thoracentesis 11/11; 800 cc removed.
type 2 NSTEMI
CAD s/p stents 2014
- LHC: severe multivessel coronary artery disease, there is no PCI targets per Cardiology. CT surgery also evaluated and patient felt a poor surgical candidate
- continue medical management: ASA/Statin/BB/Imdur
Chest pain today when became upset. EKG ordered, less ST changes when compared to admission EKG. Went back to room for second visit. By time of revisit, pain had essentially gone back to baseline. Met with pt and . Reviewed high risk
cardiovascular intervention and need for rehab. Pt was agreeable to proceed with transfer to [facility]. Is aware that will need follow up with cardio.
Right sided abdominal pain
- CT abdomen pelvis showed: No significant acute process in the abdomen or pelvis. Diverticulosis coli. Cholelithiasis.
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
Supratherapeutic INR previously, now perfect
- continue Coumadin, will order 2 mg daily with INR now 2.99-->3.24-->3.0-->2.47-->2.39-->2.26
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
Hx Right partial foot amputation
- PT/OT - SNF rehab
monitor noted 7 beat run of asymptomatic V-Tach
cardio made aware
Rt wrist pain
area of pain is very tender, red, but not warm. US: FINDINGS and IMPRESSION: Right radial artery is patent at the level of the proximal forearm. Right radial artery is occluded at the level of the mid and distal forearm.
Right ulnar artery is patent. Normal multiphasic waveform is seen at the level of the proximal forearm, and a monophasic waveform is seen at the level of the distal forearm.
Input of Dr. Waldron appreciated, thrombosed RT radial artery. Call placed and discussed with Dr. Waldron 11/21, recommend conservative management
History of diabetes mellitus
- Continue home medication
- Insulin sliding scale
- Diabetic diet
- Hemoglobin A1c 5.6%
- Toujeo 25 units continued
glu 134-194
continue current insulin dosing with improving renal fxn, may need to adjust moving forward
Accelerated essential hypertension
- Blood pressure acceptable
129/81
Hypokalemia - resolved, 4.0-->4.4-->4.2
DVT ppx: Coumadin
Code: Full
time on complex management 70 minutes
reviewed with CM and in room. Insurance auth
will resume preadmit Coumadin, BMP, Mag, INR in AM
time 70 minutes. 2 visits
More than 30 minutes spent in discharge including
Final examination of the patient
Summarizing hospital stay
Instructions for continuing care to all relevant caregivers
Preparation of discharge records, prescriptions, and referral forms
Total time spent (in minutes): 70
Anticipated Discharge: Today
Subjective/Interval History
-
Date of Service: November 22, 2024
Was doing well earlier this morning. Was told he will go to [place], became upset and chest pain worsened
Objective Data
-
Labs:
Laboratory Results
11/22/24 11/22/24
05:42 06:35
PT 25.6 H
INR 2.32
Sodium 138
Potassium 4.4
Chloride 103
Carbon Dioxide 29
BUN 29 H
Creatinine 1.3
Glucose 161 H
Calcium 8.9
Vital Signs:
Vital Signs
Temp Pulse Resp BP Pulse Ox
97.9 F 64 16 131/67 97
11/22/24 11:00 11/22/24 11:00 11/22/24 11:00 11/22/24 11:00 11/22/24 11:00
I&O
11/21/24 11/22/24 11/23/24
06:59 06:59 06:59
Intake Total 1040 / 1040 680 / 680
Output Total 1450 / 1450 1245 / 1245
Balance -410 / -410 -565 / -565
Review of Systems
-
History Source: Patient and Coordinated Provider
Constitutional: Denies Fever
EENT: Reports No Symptoms Reported
Respiratory: Reports No Symptoms; Denies Trouble Breathing
Cardiac: Reports Chest Pain (heaviness has lessened, but not resolved)
Abdomen/GI: Reports No Symptoms
Musculoskeletal: Reports Other (rt wrist pain has not resolved, but may be slightly less intense)
Neuro: Reports No Symptoms
Physical Exam
-
General: No Apparent Distress
HEENT: Normocephalic and Atraumatic
Respiratory: Negative Wheezes
Cardiac: Regular Rhythm and S1/S2
GI: Soft and Nontender
Musculoskeletal: Edema, Right Lower Extrem and Other (left BKA, rt wrist in area of pain has persisted, over radial artery is red, but has decreased but not warm, Rt foot transmetatarsal amputation)
Skin: Rash (rt wrist less intense)
Neuro: AO x 3
Psych: Calm
[2024-11-22 15:10] VITALS: BP 127/60
[2024-11-22 15:59] VITALS: BP 127/60
--- NOTE | 2024-11-22 17:00 | W.DS.TRANS ---
DC Summary - Clinical Lab Specialist
-
Discharge Instructions:
Sleep Apnea Risk High
Discharge Diagnosis/Procedures Severe Coronary Artery Disease
Diet 2 Gram Sodium,Restrict fluids to 48 oz
Activity No strenuous activity
Driving Restrictions No driving
Bathing Restrictions None
Blood Work CBC, CMP on 11/25 INR on 11/25, then weekly (INR
on 11/22 was 2.32)
Accucheck glu qid with sliding scale insulin
coverage, moderate sensitivity
Note Toujeo insulin may need adjustment
depending on patient's oral intake
Other Services PT,OT
Wound Care will need splint to Right Wrist due to
thrombosis of rt radial artery
Specialty Instructions Weigh Daily
Instructions: *PCP/Other Studio Operations Manager Heart Failure Instructions
Stand-Alone Forms:
Changes to Home Medications: Yes
Discharge Medications:
DC Medications w/original date entered in [employer]
aspirin 81 mg chewable tablet 81 mg PO DAILY #0 tabs 07/14/22
insulin glargine U-300 conc 300 unit/mL (3 mL) subcutaneous pen (Toujeo Max U-300 SoloStar) 40 unit SC HS Diabetes 03/01/23
insulin aspart U-100 100 unit/mL subcutaneous solution (Novolog U-100 Insulin aspart) 1 sliding scale dose SC DIRECTED Diabetes 11/07/24
warfarin 2 mg tablet 2 mg PO SUMOWEFRSA Blood Clot Prevention/Tx 11/07/24
warfarin 3 mg tablet 3 mg PO TUTH Blood Clot Prevention/Tx 11/07/24
atorvastatin 40 mg tablet 40 mg PO QPM #0 tabs 11/22/24
carvedilol 6.25 mg tablet 6.25 mg PO BID #0 tabs 11/22/24
furosemide 80 mg tablet 80 mg PO DAILY #0 tabs 11/22/24
isosorbide mononitrate 30 mg tablet,extended release 24 hr 30 mg PO DAILY #0 tabs 11/22/24
miconazole nitrate 2 % topical powder (Miconazorb AF) 1 applic topical BID #85 grams 11/22/24
nitroglycerin 0.4 mg sublingual tablet 0.4 mg sublingual [id number] PRN ANGINA #0 tabs 11/22/24
sacubitril 24 mg-valsartan 26 mg tablet (Entresto) 1 tab PO BID #0 tabs 11/22/24
sennosides 8.6 mg tablet (Makenzie-kimberly) 8.6 mg PO BID #30 tabs 11/22/24
Home Medication Changes
Entresto, Lasix, ImDur, Coreg added
Lipitor dose increased from 10 mg to 40 mg daily
Pending Results: No
--- NOTE | 2024-11-25 13:19 | W.HF.CON ---
Heart Failure
- LV Function
Left ventricular function study result: LV Ejection fraction </= 35%
Ejection Fraction Percentage: 30-35
- ARNI
Patient already on ARNI: Yes
- ACEI/ARB
Patient already on ACEI/ARB: No
Heart Failure ACEI/ARB Not Indicated: Patient ordered/on ARNI
- Beta Clare
Patient already on Evidence Based Beta Clare: Yes
- Mineralocorticord Receptor Antagonist
Patient already on MRA: No
Heart Failure MRA Contraindication: Acute Renal Insufficiency
- SGLT-2 Inhibitor
Patient already on SGLT-2 Inhibitor: No
Heart Failure SGLT-2 Inhibitor Contraindication: Patient Refusal
- NYHA CHF Classification
NYHA CHF Classification Level: Class III - Symptoms w/ min exertion, interferes w/ nml daily activity
- ACC/AHA Stage
ACC/AHA Stage: Stage C: Symptomatic Heart Failure
== END 2024-11-22 17:51 | DRG 280 ==
LOC: 3 WEST ACU 21:20
PROVIDERS: General Practice; Internal Medicine; Internal Medicine Cardiovascular Disease; Internal Medicine Interventional Cardiology; Physician Assistant Medical; Radiology Diagnostic Radiology; Registered Nurse; ADMITTING PHYSICIAN Hospitalist; ATTENDING PHYSICIAN Internal Medicine; CONSULT PHYSICIAN Internal Medicine; CONSULT PHYSICIAN Internal Medicine Infectious Disease; CONSULT PHYSICIAN Physical Medicine & Rehabilitation; CONSULT PHYSICIAN Specialist; CONSULT PHYSICIAN Thoracic Surgery (Cardiothoracic Vascular Surgery); EMERGENCY PHYSICIAN Emergency Medicine; FAMILY PHYSICIAN Internal Medicine; OTHER PHYSICIAN Internal Medicine Cardiovascular Disease
PROC: B2111ZZ Fluoroscopy of Multiple Coronary Arteries using Low Osmolar Contrast (ICD-10-PCS; 2024-11-11)
PROC: 0W993ZZ Drainage of Right Pleural Cavity, Percutaneous Approach (ICD-10-PCS; 2024-11-11)
PROC: B2151ZZ Fluoroscopy of Left Heart using Low Osmolar Contrast (ICD-10-PCS; 2024-11-11)
PROC: 5A09357 Assistance with Respiratory Ventilation, Less than 24 Consecutive Hours, Continuous Positive Airway Pressure (ICD-10-PCS; 2024-11-11)
PROC: 4A023N7 Measurement of Cardiac Sampling and Pressure, Left Heart, Percutaneous Approach (ICD-10-PCS; 2024-11-11)
DX: I13.0 Hypertensive heart and chronic kidney disease with heart failure and stage 1 through stage 4 chronic kidney disease, or unspecified chronic kidney disease (principal); I50.23 Acute on chronic systolic (congestive) heart failure; I21.A1 Myocardial infarction type 2; J96.21 Acute and chronic respiratory failure with hypoxia; J96.22 Acute and chronic respiratory failure with hypercapnia; D68.59 Other primary thrombophilia; I16.1 Hypertensive emergency; E87.4 Mixed disorder of acid-base balance; J91.8 Pleural effusion in other conditions classified elsewhere; N17.9 Acute kidney failure, unspecified; I74.2 Embolism and thrombosis of arteries of the upper extremities; I25.10 Atherosclerotic heart disease of native coronary artery without angina pectoris; E11.40 Type 2 diabetes mellitus with diabetic neuropathy, unspecified; E66.01 Morbid (severe) obesity due to excess calories; E11.51 Type 2 diabetes mellitus with diabetic peripheral angiopathy without gangrene; E78.00 Pure hypercholesterolemia, unspecified; N18.9 Chronic kidney disease, unspecified; D63.1 Anemia in chronic kidney disease; E87.6 Hypokalemia; I25.5 Ischemic cardiomyopathy; H54.8 Legal blindness, as defined in USA; L40.9 Psoriasis, unspecified; Z68.36 Body mass index [BMI] 36.0-36.9, adult; Z79.01 Long term (current) use of anticoagulants; Z79.4 Long term (current) use of insulin; Z79.82 Long term (current) use of aspirin; Z79.891 Long term (current) use of opiate analgesic; Z79.899 Other long term (current) drug therapy; Z86.711 Personal history of pulmonary embolism; Z86.718 Personal history of other venous thrombosis and embolism; Z89.431 Acquired absence of right foot; Z89.512 Acquired absence of left leg below knee; Z95.5 Presence of coronary angioplasty implant and graft; Z95.820 Peripheral vascular angioplasty status with implants and grafts
CPT/HCPCS: 88305; 32555; 71045; 74176; 80048; 80053; 80061; 81003; 81015; 82150; 82570; 82805; 82945; 82962; 83036; 83615; 83735; 83880; 83986; 84155; 84156; 84157; 84300; 84443; 84478; 84484; 85025; 85027; 85347; 85610; 85730; 87015; 87070; 87086; 87205; 88112; 89051; 93005; 93307; 93458; 93926; 94640; 94660; 96374; 97163; 97167; 97530; 97535; 99152; 99153; 99291; C1894; Q9957; Q9967

== ENCOUNTER → 2025-01-02 13:21 | Outpatient (REF) | payer OTHER, SELFPAY ==
[2025-01-02 16:14] LABS: Blood Urea Nitrogen 43 mg/dl (9-20); Calcium 9.0 mg/dl (8.4-10.2); Carbon Dioxide 26 mmol/L (22-30); Chloride 100 mmol/L (98-107); Glucose 83 mg/dl (70-99); Potassium 3.9 mmol/L (3.5-5.1); Sodium 138 mmol/L (135-145); eGFR 42.57
== END ==
LOC: RAD 13:21
PROVIDERS: ATTENDING PHYSICIAN Surgery Vascular Surgery; FAMILY PHYSICIAN Internal Medicine; REFERRING PHYSICIAN Physician Assistant Medical
DX: Z89.512 Acquired absence of left leg below knee (principal); I70.262 Atherosclerosis of native arteries of extremities with gangrene, left leg; I25.5 Ischemic cardiomyopathy
CPT/HCPCS: 36415; 80048; 93922; 93925

== ENCOUNTER → 2025-02-14 09:20 | Outpatient (REF) | payer OTHER, SELFPAY | LOC: RCS 09:20 | PROVIDERS: ATTENDING PHYSICIAN Internal Medicine Cardiovascular Disease | DX: I25.5 Ischemic cardiomyopathy (principal); I25.10 Atherosclerotic heart disease of native coronary artery without angina pectoris | CPT/HCPCS: 93308; 93321; 93325; Q9957 ==